=== PATIENT | female | born 1970 | race Caucasian/White ===

== ENCOUNTER 2020-07-28 20:50 | Emergency (ER) | payer MEDICAID, SELFPAY ==
[2020-07-28 21:01] VITALS: BP 100/60; BP 104/61; PULSE 80; PULSE 97; RESP 20; TEMP 37.2; O2SAT 97; O2SAT 98; BMI 23.6
--- NOTE | 2020-07-28 21:01 | ECG_ITS ---
Test Reason : CHEST PAIN Blood Pressure : / mmHG Vent. Rate : 094 BPM Atrial Rate : 094 BPM P-R Int : 150 ms QRS Dur : 072 ms QT Int : 358 ms P-R-T Axes : 070 052 059 degrees QTc Int : 447 ms Normal sinus rhythm Normal ECG When compared with ECG of 12-JUL-2019 13:02, No significant change was found Referred By: Danlio Iyer Electronically Signed By:MILAGROS MEJIAS MD
--- NOTE | 2020-07-28 21:01 | XR_ITS ---
EXAMINATION: XR CHEST CLINICAL INFORMATION: Chest pain. COMPARISON: None TECHNIQUE: Frontal view of the chest was obtained. FINDINGS: The lungs are clear. The cardiomediastinal silhouette is normal in size. There is no pleural effusion or pneumothorax. No acute osseous abnormality. XR/XR chest 1V IMPRESSION: No acute cardiopulmonary findings.
--- NOTE | 2020-07-28 21:06 | ED_ITS ---
HPI - Chest Pain General Chief Complaint: Chest Pain Stated Complaint: chest pain Time Seen by Provider: 07/28/20 21:00 Source: patient and EMS Mode of arrival: EMS Limitations: no limitations History of Present Illness HPI narrative: patient with no known history of coronary artery disease history of mild aortic stenosis with bicuspid aortic valve history of fibromyalgia and gastric reflux was watching TV about 3 hours ago when she noticed sharp midsternal pain which lasted for an hour call the lightning protection installer who asked to [facility]. There was no radiation of pain when EMS came they gave her 2 nitroglycerin sublingual and pain has improved. Patient denies any diaphoresis no nausea no vomiting no abdominal pain patient never had similar pain in the past patient had cardiac stress test few years ago which was negative patient allergic to aspirin. Patient denied any shortness of breath no radiation of pain initial EKG by EMS was normal sinus rhythm without any acute ST T wave changes MD complaint: chest pain Related Data Home Medications Medication Instructions Recorded Confirmed Lactobacillus acidophilus 10,000 mmu cells PO DAILY 07/28/20 07/28/20 [Probiotic] acetaminophen [Tylenol Extra 500 mg PO Q6H PRN 07/28/20 07/28/20 Strength] albuterol sulfate [Proventil HFA] 1 puff INHALATION QID PRN 07/28/20 07/28/20 cholecalciferol (vitamin D3) 50 mcg PO DAILY 07/28/20 07/28/20 [Vitamin D3] famotidine 20 mg PO BEDTIME 07/28/20 07/28/20 lansoprazole 30 mg PO DAILY 07/28/20 07/28/20 lorazepam [Ativan] 0.5 mg PO BID PRN 07/28/20 07/28/20 meclizine 25 mg PO DAILY PRN 07/28/20 07/28/20 nortriptyline 100 mg PO BEDTIME 07/28/20 07/28/20 propranolol 60 mg PO DAILY 07/28/20 07/28/20 Allergies Allergy/AdvReac Type Severity Reaction Status Date / Time amitriptyline [AMITRIPTYLINE] Allergy Unknown ANGER Verified 07/28/20 21:17 aspirin [ASPIRIN] Allergy Unknown HIVES AND Verified 07/28/20 21:17 NAUSEA azithromycin [AZITHROMYCIN] Allergy Unknown HIVES AND Verified 07/28/20 21:17 NAUSEA doxycycline Allergy Unknown Unknown Verified 07/28/20 21:17 erythromycin base Allergy Unknown UNKNOWN Verified 07/28/20 21:17 [ERYTHROMYCIN BASE] fluticasone Allergy Unknown BLISTERS Verified 07/28/20 21:17 [From FLOVENT DISKUS] IN MOUTH ibuprofen [IBUPROFEN] Allergy Unknown HIVES, Verified 07/28/20 21:17 HEADACHE ifosfamide Allergy Unknown Unknown Verified 07/28/20 21:17 loratadine [Claritin] Allergy Unknown Unknown Verified 07/28/20 21:17 pantoprazole [Protonix] Allergy Unknown Unknown Verified 07/28/20 21:17 penicillin G [PENICILLIN G] Allergy Unknown HIVES AND Verified 07/28/20 21:17 NAUSEA penicillin V Allergy Unknown Unknown Verified 07/28/20 21:17 Sulfa (Sulfonamide Allergy Unknown Unknown Verified 07/28/20 21:17 Antibiotics) sulfamethoxazole Allergy Unknown HIVES AND Verified 07/28/20 21:17 [From BACTRIM] NAUSEA trimethoprim [From BACTRIM] Allergy Unknown HIVES AND Verified 07/28/20 21:17 NAUSEA zafirlukast [From ACCOLATE] Allergy Unknown HIVES AND Verified 07/28/20 21:17 NAUSEA cephalexin Allergy Unknown Unknown Uncoded 07/28/20 21:17 doxycycline Allergy Unknown Unknown Uncoded 07/28/20 21:17 Erythromycin Allergy Unknown Unknown Uncoded 07/28/20 21:17 erythromycin Allergy Unknown Unknown Uncoded 07/28/20 21:17 ethylsuccinate Allergy Unknown Unknown Uncoded 07/28/20 21:17 Fluoxetine Allergy Unknown Unknown Uncoded 07/28/20 21:17 fluticasone Allergy Unknown Unknown Uncoded 07/28/20 21:17 Folastin Allergy Unknown Unknown Uncoded 07/28/20 21:17 FOLEX Allergy Unknown HIVES AND Uncoded 07/28/20 21:17 NAUSEA furoate Allergy Unknown Unknown Uncoded 07/28/20 21:17 loratadine Allergy Unknown Unknown Uncoded 07/28/20 21:17 mometasone Allergy Unknown Unknown Uncoded 07/28/20 21:17 monohydrate Allergy Unknown Unknown Uncoded 07/28/20 21:17 Motrin Allergy Unknown Unknown Uncoded 07/28/20 21:17 ofloxacin Allergy Unknown Unknown Uncoded 07/28/20 21:17 omeprazole Allergy Unknown Unknown Uncoded 07/28/20 21:17 pantoprazole Allergy Unknown Unknown Uncoded 07/28/20 21:17 penicillins Allergy Unknown Unknown Uncoded 07/28/20 21:17 propionate Allergy Unknown Unknown Uncoded 07/28/20 21:17 sulfamethoxazole Allergy Unknown Unknown Uncoded 07/28/20 21:17 Symbicort Allergy Unknown Unknown Uncoded 07/28/20 21:17 Trimethoprim Allergy Unknown Unknown Uncoded 07/28/20 21:17 trimethoprim Allergy Unknown Unknown Uncoded 07/28/20 21:17 Zafirlukast Allergy Unknown Unknown Uncoded 07/28/20 21:17 zafirlukast Allergy Unknown Unknown Uncoded 07/28/20 21:17 Review of Systems Review of Systems: REVIEW OF SYSTEMS: Pertinent positives and negatives are stated above in the history. GEN: no fevers, chills, fatigue HEENT: no nasal congestion, sore throat, ear pain NEURO: no headache, dizziness, focal weakness PULM: no cough, shortness of breath CV: no palpitations, LE edema ABD: no abdominal pain, nausea, vomiting, diarrhea : no dysuria, urgency, frequency SKIN: no rash ROS otherwise negative x 10 PMFSH Past Medical History Medical History Anxiety Aortic stenosis Asthma Depression Fibromyalgia GERD (gastroesophageal reflux disease) IBS (irritable bowel syndrome) Migraine Mitral and aortic regurgitation Social History Social History Alcohol intake: never Smoking Status: Never smoker Use of substances other than those prescribed or required for medical reasons: No Advance Directives: No Advance Directives Information Provided: No Physical Exam Vital Signs: Vital Signs: Vital Signs Temp Pulse Resp BP Pulse Ox 07/29/20 00:45 97 17 115/82 95 07/28/20 21:47 98.9 F 92 20 112/73 97 07/28/20 21:01 98.9 F 97 20 104/61 98 Body Mass Index 23.6 VITAL SIGNS: Reviewed. GENERAL: Well developed, well nourished, in no acute distress. HEAD: Normocephalic/atraumatic, EYES: PERRLA No pallor/icterus noted EARS: Ext canals without abnormality NOSE: Nares patent bilateral OROPHARYNX: Oral mucosa moist no oral lesions NECK: Supple, no adenopathy LUNGS: Normal breath sounds. No adventitious sounds or accessory muscle use CARDIOVASCULAR: Regular rate and rhythm without noted murmurs, no JVD or lower extremity edema. ABDOMEN: Soft, non-tender, non-distended with bowel sounds. No rigidity. No guarding. No palpable masses or hernias noted MUSCULOSKELETAL: No tenderness, deformities, EXTREMITIES: No cyanosis or edema. SKIN: no rashes, ulcerations, jaundice, pallor, or petechiae NEUROLOGIC: Alert and oriented x 3. Strength and sensation to light touch were grossly intact Course Course Course Narrative: patient with atypical chest pain initial cardiac enzymes are negative EKG normal with repeat 2nd troponin and follow Reevaluation(s) Reevaluation #1: patient without any chest pain complaining of headache will give her Tylenol. Awaiting her 2nd troponin Time: 01:01 Reevaluation #2: 2nd troponin negative will discharge patient home patient without any chest pain at this time Time: 01:04 MDM - Chest Pain Differential Diagnosis Differential diagnosis: Likely pneumothorax, atypical chest pain, costochondritis and chest pain Lab Data Result diagrams: 07/28/20 21:45 07/28/20 21:45 Labs: Lab Results 07/28/20 07/28/20 07/28/20 Range/Units 21:45 21:45 21:45 WBC 3.6 L (4.8-10.8) X10*3/uL RBC 3.80 L (4.20-5.50) X10*6/uL Hgb 12.4 (12.0-16.0) g/dl Hct 34.8 L (37-47) % MCV 91.6 (80-98) fL MCH 32.6 (27.0-33.0) pg MCHC 35.6 H (31.0-35.0) g/dl RDW 10.8 L (11.0-16.0) % Plt Count 121 L (160-400) X10*3/uL MPV 12.3 (9.4-12.3) fL Immature Gran % (Auto) 0.0 (0.0-0.4) % Neut % (Auto) 61.5 (45-73) % Lymph % (Auto) 12.8 L (20-40) % Giles % (Auto) 25.1 H (2-11) % Eos % (Auto) 0.3 (0-4) % Baso % (Auto) 0.3 (0-2) % Lymph # (Auto) 0.5 L (1.2-4.9) X10*3/uL Giles # (Auto) 0.9 (0.1-1.2) X10*3/uL Eos # (Auto) 0.0 (0.0-0.4) X10*3/uL Baso # (Auto) 0.0 (0.0-0.2) X10*3/uL Abs Immat Gran (auto) 0.00 (0.00-0.03) X10*3/uL Absolute Neuts (auto) 2.2 (2.0-8.3) X10*3/uL Absolute Nucleated RBC 0.000 (0.0-0.012) X10*3/uL Nucleated RBC % (auto) 0.0 (0.0-0.2) /100WBC Smear Tech's Comments VERIFIED PT (10.8-13.0) SEC INR (0.9-1.1) APTT (24.1-38.0) SEC Sodium 135 (135-145) mmol/L Potassium 4.2 (3.3-5.1) mmol/l Chloride 101 (96-108) mmol/L Carbon Dioxide 27 (22-29) mmol/L Anion Gap 11 L (12-20) BUN 12 (9-16) mg/dL Creatinine 0.83 (0.5-1.4) mg/dL Estim Creat Clear Calc 59.8 Estimated GFR > 60 Random Glucose 99 (60-115) mg/dL Calcium 8.4 (8.4-10.2) mg/dL Troponin I High Sens < 3.5 (<3.5-17.0) ng/L 07/28/20 07/29/20 Range/Units 21:45 00:31 WBC (4.8-10.8) X10*3/uL RBC (4.20-5.50) X10*6/uL Hgb (12.0-16.0) g/dl Hct (37-47) % MCV (80-98) fL MCH (27.0-33.0) pg MCHC (31.0-35.0) g/dl RDW (11.0-16.0) % Plt Count (160-400) X10*3/uL MPV (9.4-12.3) fL Immature Gran % (Auto) (0.0-0.4) % Neut % (Auto) (45-73) % Lymph % (Auto) (20-40) % Giles % (Auto) (2-11) % Eos % (Auto) (0-4) % Baso % (Auto) (0-2) % Lymph # (Auto) (1.2-4.9) X10*3/uL Giles # (Auto) (0.1-1.2) X10*3/uL Eos # (Auto) (0.0-0.4) X10*3/uL Baso # (Auto) (0.0-0.2) X10*3/uL Abs Immat Gran (auto) (0.00-0.03) X10*3/uL Absolute Neuts (auto) (2.0-8.3) X10*3/uL Absolute Nucleated RBC (0.0-0.012) X10*3/uL Nucleated RBC % (auto) (0.0-0.2) /100WBC Smear Tech's Comments PT 12.6 (10.8-13.0) SEC INR 1.1 (0.9-1.1) APTT 38.0 (24.1-38.0) SEC Sodium (135-145) mmol/L Potassium (3.3-5.1) mmol/l Chloride (96-108) mmol/L Carbon Dioxide (22-29) mmol/L Anion Gap (12-20) BUN (9-16) mg/dL Creatinine (0.5-1.4) mg/dL Estim Creat Clear Calc Estimated GFR Random Glucose (60-115) mg/dL Calcium (8.4-10.2) mg/dL Troponin I High Sens < 3.5 (<3.5-17.0) ng/L ECG Data ECG #1: Attestation: I personally reviewed and interpreted this ECG as follows: ECG interpretation date: 07/28/20 ECG interpretation time: 20:03 Prior ECG tracings: available for review Interpretation: normal sinus rhythm heart rate 94 normal intervals normal axis no acute ST T wave changes impression normal EKG Discharge Plan Discharge Clinical Impression: Chest pain Qualifiers: Chest pain type: precordial pain Qualified Code(s): R07.2 - Precordial pain Patient Disposition: Home, Self-Care Instructions: Chest Pain (ED) Additional Instructions: continue medications, follow-up with your primary care doctor for further evaluation. Report to the ER if recurrence of chest pain /shortness of breath Prescriptions: No Action propranolol 60 mg Capsule,Extended Release 24 Hr 60 mg PO DAILY RF: 0 famotidine 20 mg Tablet 20 mg PO BEDTIME RF: 0 lorazepam [Ativan] 0.5 mg Tablet 0.5 mg PO BID PRN (Reason: Anxiety) RF: 0 meclizine 25 mg Tablet 25 mg PO DAILY PRN (Reason: Dizziness) RF: 0 lansoprazole 30 mg Capsule,Delayed Release(Dr/Ec) 30 mg PO DAILY RF: 0 albuterol sulfate [Proventil HFA] 90 mcg/actuation Hfa Aerosol Inhaler 1 puff INHALATION QID PRN (Reason: SOB) RF: 0 acetaminophen [Tylenol Extra Strength] 500 mg Capsule 500 mg PO Q6H PRN (Reason: Pain) RF: 0 nortriptyline 50 mg Capsule 100 mg PO BEDTIME RF: 0 cholecalciferol (vitamin D3) [Vitamin D3] 50 mcg (2,000 unit) Tablet 50 mcg PO DAILY RF: 0 Probiotic 10 billion cell Capsule 10,000 mmu cells PO DAILY RF: 0
[2020-07-28] MEDS: Famotidine/PF 20 MG/2 ML VIAL IVPUSH (21:42)
[2020-07-28 21:47] VITALS: BP 112/73; PULSE 92; RESP 20; TEMP 37.2; O2SAT 97
[2020-07-28 22:04] LABS: Basophils Percent Auto 0.3 % (0-2); Eosinophils Percent Auto 0.3 % (0-4); Hematocrit 34.8 % (37-47); Hemoglobin 12.4 g/dl (12.0-16.0); Lymphocytes Absolute Auto 0.5 X10*3/uL (1.2-4.9); Lymphocytes Percent Auto 12.8 % (20-40); MANUAL DIFF FLAG SCAN; Mean Corpuscular HGB Conc 35.6 g/dl (31.0-35.0); Mean Corpuscular Hemoglobin 32.6 pg (27.0-33.0); Mean Corpuscular Volume 91.6 fL (80-98); Mean Platelet Volume 12.3 fL (9.4-12.3); Monocytes Absolute Auto 0.9 X10*3/uL (0.1-1.2); Monocytes Percent Auto 25.1 % (2-11); Neutrophils Absolute Auto 2.2 X10*3/uL (2.0-8.3); Neutrophils Percent Auto 61.5 % (45-73); Platelet Count 121 X10*3/uL (160-400); Red Cell Distribution Width 10.8 % (11.0-16.0); SCAN SMEAR FLAG 1; White Blood Count 3.6 X10*3/uL (4.8-10.8)
[2020-07-28 22:07] LABS: SLIDE REVIEW VERIFIED
[2020-07-28 22:11] LABS: INTERNATIONAL NORM RATIO 1.1 (0.9-1.1); Prothrombin Time 12.6 SEC (10.8-13.0)
[2020-07-28 22:22] VITALS: PULSE 90
[2020-07-28 22:45] LABS: Anion Gap 11 (12-20); Blood Urea Nitrogen 12 mg/dL (9-16); Calcium 8.4 mg/dL (8.4-10.2); Carbon Dioxide 27 mmol/L (22-29); Chloride 101 mmol/L (96-108); Creatinine Clr Calc Pharmacy 59.8; Estimated Glomerular Filt Rate > 60; Glucose Random 99 mg/dL (60-115); Potassium 4.2 mmol/l (3.3-5.1); Sodium 135 mmol/L (135-145)
[2020-07-28 22:49] LABS: Troponin-I High Sensitivity < 3.5 ng/L (<3.5-17.0)
[2020-07-29 00:45] VITALS: BP 115/82; PULSE 97; RESP 17; O2SAT 95
[2020-07-29 01:04] LABS: Troponin-I High Sensitivity < 3.5 ng/L (<3.5-17.0)
== END 2020-07-29 01:26 | disposition home or self-care (01) ==
PROVIDERS: Emergency Provider Internal Medicine; PCP Nurse Practitioner Family
DX: R07.2 Precordial pain (principal); Z79.899 Other long term (current) drug therapy
CPT/HCPCS: 36415; 71045; 80048; 84484; 85025; 85610; 85730; 93005; 96374; 99284

== ENCOUNTER → 2020-10-25 09:06 | Outpatient (BNVA) | payer MEDICAID, SELFPAY | PROVIDERS: PCP Nurse Practitioner Family; Visit Provider Internal Medicine Gastroenterology ==

== ENCOUNTER 2020-11-07 12:58 | Outpatient (REF) | payer MEDICAID, SELFPAY | END 2020-11-07 12:59 | disposition home or self-care (01) | LOC: HO.LAB 12:58 | PROVIDERS: Visit Provider Internal Medicine Gastroenterology | DX: Z13.89 Encounter for screening for other disorder (principal) ==

== ENCOUNTER → 2020-12-06 10:51 | Outpatient (BNVA) | payer MEDICAID, SELFPAY | PROVIDERS: PCP Nurse Practitioner Primary Care; Visit Provider Internal Medicine Gastroenterology ==

== ENCOUNTER 2020-12-24 07:47 | Outpatient (REF) | payer MEDICAID, SELFPAY ==
--- NOTE | ~2020-12-24 | US_ITS ---
EXAMINATION: US ABDOMEN COMPLETE CLINICAL INFORMATION: Gaseous abdominal distention. COMPARISON: CT abdomen and pelvis 03/27/2020. Ultrasound abdomen complete 07/05/2019. Ultrasound kidneys and bladder 08/13/2010. TECHNIQUE: Real-time imaging of the abdominal viscera. FINDINGS: PANCREAS: Normal. ABDOMINAL AORTA: The proximal, mid, and distal segments are normal in caliber. INFERIOR VENA CAVA: Visualized portions are normal. LIVER: The liver is normal in size. The liver contour is normal. There is a slight increased liver echogenicity. No focal hepatic lesion. There is no intrahepatic biliary duct dilatation seen. GALLBLADDER: Normal. The gallbladder is physiologically distended without evidence of stones, sludge, polyps, wall thickening or pericholecystic fluid. COMMON BILE DUCT: Normal in caliber measuring 0.3 cm in diameter. RIGHT KIDNEY: There are 2 anechoic cyst. Upper pole cyst measures 0.3 x 0.1 cm and a lower pole cyst measures 0.2 x 0.1 cm. No hydronephrosis or focal parenchymal lesions. The kidney measures 8.9 cm in maximum dimension. LEFT KIDNEY: Normal. No hydronephrosis. No renal calculi or focal parenchymal lesions. The kidney measures 9.7 cm in maximum dimension. SPLEEN: Normal. The spleen measures 9.6 cm in maximum dimension. FREE FLUID: None. US/US abdomen complete IMPRESSION: Mild hepatic steatosis. No focal lesions seen. Echogenic stones without caliectasis or hydronephrosis right kidney. The rest of the abdominal ultrasound is unremarkable.
[2020-12-24 09:00] LABS: MANUAL DIFF FLAG NO
[2020-12-24 09:03] LABS: Basophils Percent Auto 0.8 % (0-2); Eosinophils Absolute Auto 0.1 X10*3/uL (0.0-0.4); Eosinophils Percent Auto 2.1 % (0-4); Hematocrit 38.3 % (37-47); Hemoglobin 13.2 g/dl (12.0-16.0); Lymphocytes Absolute Auto 1.4 X10*3/uL (1.2-4.9); Lymphocytes Percent Auto 36.1 % (20-40); Mean Corpuscular HGB Conc 34.5 g/dl (31.0-35.0); Mean Corpuscular Hemoglobin 31.7 pg (27.0-33.0); Mean Corpuscular Volume 91.8 fL (80-98); Mean Platelet Volume 11.5 fL (9.4-12.3); Monocytes Absolute Auto 0.4 X10*3/uL (0.1-1.2); Monocytes Percent Auto 11.3 % (2-11); Neutrophils Absolute Auto 1.9 X10*3/uL (2.0-8.3); Neutrophils Percent Auto 49.7 % (45-73); Platelet Count 143 X10*3/uL (160-400); Red Blood Count 4.17 X10*6/uL (4.20-5.50); Red Cell Distribution Width 11.3 % (11.0-16.0); White Blood Count 3.9 X10*3/uL (4.8-10.8)
[2020-12-24 09:12] LABS: Prothrombin Time 11.8 SEC (10.8-13.0)
[2020-12-24 09:34] LABS: Alanine Aminotransferase 19 U/L (0-31); Albumin Level 4.3 g/dL (3.5-5.0); Alkaline Phosphatase 76 U/L (39-117); Anion Gap 12 (12-20); Aspartate Amino Transferase 24 U/L (5-31); Bilirubin Total 0.5 mg/dL (0.0-1.0); Blood Urea Nitrogen 12 mg/dL (9-16); Calcium 9.2 mg/dL (8.4-10.2); Carbon Dioxide 27 mmol/L (22-29); Chloride 105 mmol/L (96-108); Estimated Glomerular Filt Rate > 60; Glucose Random 93 mg/dL (60-115); Sodium 140 mmol/L (135-145); Total Protein 6.9 g/dL (6.5-8.0)
[2020-12-28 12:41] LABS: FIB-ALT 14 U/L (6-29); FIB-Alpha-2-Macroglobulin 200 mg/dL (106-279); FIB-Apolipoprotein A1 167 mg/dL (101-198); FIB-GGT 29 U/L (3-70); FIB-Haptoglobin 134 mg/dL (43-212); FIB-Total Bilirubin 0.4 mg/dL (0.2-1.2); Liver Fibrosis Score 0.13; Liver Fibrosis Stage F0; Nec Inflam Act Grade A0; Nec Inflam Act Score 0.04
== END 2020-12-24 07:48 | disposition home or self-care (01) ==
LOC: HO.US 07:47
PROVIDERS: PCP Nurse Practitioner Primary Care; Visit Provider Internal Medicine Gastroenterology
DX: R14.0 Abdominal distension (gaseous) (principal); R11.0 Nausea; D69.6 Thrombocytopenia, unspecified
CPT/HCPCS: 36415; 76700; 80053; 81596; 85025; 85610

== ENCOUNTER → 2021-01-17 07:58 | Outpatient (BNVA) | payer MEDICAID, SELFPAY | PROVIDERS: PCP Nurse Practitioner Primary Care; Visit Provider Internal Medicine Gastroenterology ==

== ENCOUNTER 2021-02-19 | Outpatient (REF) | payer MEDICAID, SELFPAY ==
[2021-03-01 09:38] LABS: FIT1 NEGATIVE (NEGATIVE)
[2021-03-01 09:39] LABS: FIT Int Ctl YES; FIT2 NEGATIVE (NEGATIVE)
== END 2021-02-19 00:01 ==
LOC: HO.LNP
PROVIDERS: Visit Provider Internal Medicine Gastroenterology
DX: Z12.11 Encounter for screening for malignant neoplasm of colon (principal)
CPT/HCPCS: 82274

== ENCOUNTER → 2021-04-18 10:19 | Outpatient (BNVA) | payer MEDICAID, SELFPAY | PROVIDERS: PCP Nurse Practitioner Primary Care; Referring Provider Nurse Practitioner Primary Care; Visit Provider Internal Medicine Gastroenterology | DX: K58.9 Irritable bowel syndrome, unspecified (principal); K21.9 Gastro-esophageal reflux disease without esophagitis; E73.9 Lactose intolerance, unspecified; R11.0 Nausea; R14.0 Abdominal distension (gaseous); R10.9 Unspecified abdominal pain | CPT/HCPCS: 99212 ==

== ENCOUNTER → 2021-06-20 12:44 | Outpatient (BNVA) | payer MEDICAID, SELFPAY | PROVIDERS: PCP Nurse Practitioner Primary Care; Referring Provider Nurse Practitioner Primary Care; Visit Provider Internal Medicine Gastroenterology | DX: K58.9 Irritable bowel syndrome, unspecified (principal); K21.9 Gastro-esophageal reflux disease without esophagitis; R10.9 Unspecified abdominal pain; R14.0 Abdominal distension (gaseous); R11.0 Nausea; E73.9 Lactose intolerance, unspecified | CPT/HCPCS: 99212 ==

== ENCOUNTER 2021-07-08 14:52 | Outpatient (REF) | payer MEDICAID, SELFPAY ==
--- NOTE | ~2021-07-08 | US_ITS ---
EXAMINATION: US PELVIS CLINICAL INFORMATION: Pain COMPARISON: Previous CT of the abdomen and pelvis February 2020 and pelvic ultrasound most recent June 2018 TECHNIQUE: Ultrasound of the pelvis is performed using both transabdominal and transvaginal transducers along with Doppler. Transvaginal imaging is performed due to inadequate visualization transabdominally. FINDINGS: The uterus is retroverted and measures 6.7 x 3.9 x 4.5 cm in dimension. No focal uterine lesion is seen. Endometrial thickness measures 0.5 cm. There is a small amount of fluid in the endometrial cavity. The cervix is normal appearing. The ovaries are normal. The right ovary measures 2.3 x 1.3 x 2.6 cm. The left ovary measures 1.4 x 0.8 x 1.6 cm. There is no fluid in the pelvis. The pelvic vessels are slightly prominent questionable for pelvic congestion. US/US pelvic and transvaginal IMPRESSION: Question pelvic congestion otherwise unremarkable exam.
== END 2021-07-08 14:53 | disposition home or self-care (01) ==
LOC: HO.HMGCX 14:52
PROVIDERS: PCP Nurse Practitioner Primary Care; Visit Provider Internal Medicine Gastroenterology
DX: R10.2 Pelvic and perineal pain (principal)
CPT/HCPCS: 76830; 76856

== ENCOUNTER 2021-08-07 | Outpatient (REF) | payer MEDICAID, SELFPAY | END 2021-08-07 00:01 | disposition home or self-care (01) | LOC: CF | PROVIDERS: Visit Provider Nurse Practitioner Family | DX: Z01.810 Encounter for preprocedural cardiovascular examination (principal); Q23.1 Congenital insufficiency of aortic valve; R07.9 Chest pain, unspecified; R00.0 Tachycardia, unspecified | CPT/HCPCS: 93005; 99212 ==

== ENCOUNTER → 2021-08-09 09:42 | Outpatient (REF) | payer MEDICAID, SELFPAY ==
--- NOTE | 2021-08-09 09:45 | CA_ITS ---
Acquisition Time: 2021-08-09 09:56:30 Total Exercise Time: 00:05:03 Test Indications: CP Medications: SEE CHART Protocol: SCOTT Max HR: 155 BPM 92% of Pred: 167 BPM Max BP: 120/070 mmHG Max Work Load: 7.0 METS Exercise stress test with exercise 5 min 3 sec of Scott protocol, with moderate shortness of breath, no chest discomfort, without arrythmia, with normotensive response to exercise, without EKG changes meeting criteria for ischemia. She related her shortness of breath to her asthma and used her Albuteral inhaler in recovery with resolution of symptom. Test reviewed with Dr Merritt. Referred By: Temi Charles Overread By: TEMI CHARLES
== END ==
LOC: HO.CARD 09:42
PROVIDERS: PCP Nurse Practitioner Primary Care; Visit Provider Nurse Practitioner Family
DX: R07.9 Chest pain, unspecified (principal)
CPT/HCPCS: 93017

== ENCOUNTER → 2021-09-16 13:11 | Outpatient (REF) | payer MEDICAID, SELFPAY ==
--- NOTE | 2021-09-16 13:22 | CA_ITS ---
Transthoracic Echocardiogram Patient (Last, First, Middle): Jesi Mena, Gender: Female Date of : 1970 Age: 51 Procedure Date: 09/16/2021 Procedure Type: Transthoracic Echocardiogram Location: OP Height: 154.94 cm Weight: 60.78 kg BSA: 1.59 m2 Heart Rate: bpm Charge Attendant: SAMI Referring MD: Temi Charles GALLERY ASSISTANT-Parish Symptoms: Q23.1 - Congenital insufficiency of aortic valve Study Quality: Fair ECG Rhythm: Sinus Conclusions: - The left ventricular systolic function is low normal. The visually estimated ejection fraction is between 50-55%. - There is a bicuspid aortic valve. Suspect fusion of left and right cusps. Most likely no significant aortic stenosis. Findings Left Ventricle Normal left ventricular cavity size. There is normal left ventricular wall thickness. The left ventricular systolic function is low normal. The visually estimated ejection fraction is between 50-55%. There is no evidence of regional wall motion abnormalities. Diastolic function is normal for age. Right Ventricle Normal right ventricular cavity size and systolic function. Atria Both atria are normal in size. Aortic Valve There is a bicuspid aortic valve. The mean gradient is 9 mmHg. There is trace (trivial) aortic valve regurgitation. Suspect fusion of left and right cusps. Visually, the leaflets open well. Measured LVOT VTi is diminished, but this may be technical. This leads to a falsely small calculated ANISA. Most likely no significant aortic stenosis. Mitral Valve The mitral valve appears normal. There is no mitral valve regurgitation. There is no mitral valve stenosis. Pulmonic Valve The pulmonic valve was not well visualized. Tricuspid Valve Normal tricuspid valve structure. There is no tricuspid valve regurgitation. The pulmonary artery systolic pressure is normal. Great Vessels The aortic annulus, sinuses of valsalva, asc aorta, and aortic arch are normal in size. Venous The inferior vena cava was not well visualized. The inferior vena cava is normal in size. Pericardium/Pleural There is no evidence of pericardial effusion. Prior Study Comparison Changes noted compared to prior study dated: 12/13/2019. Slight decrease in LVEF. Measurements 2D Linear Measurements IVSd: 0.79 0.6-0.9/0.6-1.0 cm LVIDd: 3.07 3.9-5.3/4.2-5.9 cm LVIDd Index: 1.93 2.4-3.2/2.2-3.1 cm/m2 LVIDs: 1.89 2.0-3.6 cm LVPWd: 0.79 0.7-1.1 cm Ao Root: 2.50 2.1-3.5 cm LA Diam: 2.40 2.7-3.8/3.0-4.0 cm LAIDs Index: 1.51 1.5-2.3 cm/m2 LV Mass: 74.14 67-162/88-224 g LV Mass Index: 46.63 43-95/49-115 g/m2 LVOT Diam: 2.00 3.0+(-)1.3 cm 2D Systolic Function EF 4C: 66.30 >55% EF 2C: 52.60 >55% EF BiP: 59.50 >55% Mitral Valve MV Pk E: 0.45 MV PK A: 0.58 MV Decel Time: 110.00 E/A: 0.80 E'Lateral: 8.92 E'Medial: 8.38 E/E' Med: 5.40 E/E' Lat: 5.10 PHT: 32.00 MVA PHT: 6.88 Decel [place]: 4.14 Aortic Valve AoV Pk Rene: 1.99 AoV Mn Rene: 1.39 AoV VTI: 0.33 AoV Pk Grad: 16.00 Aov Mn Grad: 9.00 ANISA Cont.VTI: 1.09 LVOT LVOT Pk Rene: 0.70 LVOT Mn Rene: 0.47 LVOT VTI: 0.12 LVOT Pk Grad: 2.00 LVOT Mn Grad: 1.00 LVOT Diam: 2.00 LVOT Area: 3.14 Diastolic Function MV Pk E: 0.45 MV Pk A: 0.58 E/A: 0.80 E'Medial: 8.38 E/E' Med: 5.40 E' Laterial: 8.92 E/E' Lat: 5.10 Right Ventricle TAPSE (mm): 1.83 TVS' Rene: 11.70 Tricuspid Valve TR Pk Rene: 1.94 TR Pk Grad: 15.00 RA Press: 3.00 RVSP: 18.00 Great Vessels Aorta Ao Root-2D: 2.50 2.0-3.7 cm Ao Asc: 2.80 2.1-3.4 cm Updated in Other Vendor System with Status of Final Fran Merritt MD electronically signed on 09/16/2021 5:16:32 PM with status of Final
== END ==
LOC: HO.CARD 13:11
PROVIDERS: PCP Nurse Practitioner Primary Care; Visit Provider Nurse Practitioner Family
DX: Q23.1 Congenital insufficiency of aortic valve (principal)
CPT/HCPCS: 93306

== ENCOUNTER 2021-10-30 14:22 | Outpatient (REF) | payer MEDICAID, SELFPAY ==
[2021-10-31 04:56] LABS: CT PCR NOT DETECTED (Not Detect.); NG PCR NOT DETECTED (Not Detect.)
[2021-10-31 08:48] LABS: BV Int Neg Control Negative (Negative); BV Int Pos Control Positive (Positive)
[2021-11-02 07:42] LABS: HPV mRNA E6/E7 rflx Not Detected (Not Detected)
== END 2021-10-30 14:23 | disposition home or self-care (01) ==
LOC: HO.LAB 14:22
PROVIDERS: PCP Nurse Practitioner Primary Care; Visit Provider Advanced Practice Midwife
DX: Z01.419 Encounter for gynecological examination (general) (routine) without abnormal findings (principal); N93.0 Postcoital and contact bleeding; N88.9 Noninflammatory disorder of cervix uteri, unspecified
CPT/HCPCS: 87480; 87491; 87510; 87591; 87624; 87660; 88142

== ENCOUNTER 2021-11-28 12:29 | Outpatient (REF) | payer MEDICAID, SELFPAY ==
--- NOTE | ~2021-11-28 | MM_ITS ---
EXAMINATION: MM SCREENING DIGITAL BREAST TOMOSYNTHESIS, BILATERAL CLINICAL INFORMATION: Screening. Asymptomatic. The lifetime risk of breast cancer based on the Tyrer-Cuzick Model is 6%. COMPARISON: Mammography: 06/23/2019, 06/14/2018, 04/28/2017 TECHNIQUE: Digital breast tomosynthesis is performed in both the craniocaudal and mediolateral oblique views along with computer-aided detection (CAD). Synthesized 2D images are generated from the tomosynthesis. Additional right CC view is provided. FINDINGS: There are scattered areas of fibroglandular density (ACR BI-RADS breast composition Category b). There are no significant masses, abnormal calcifications, or other abnormalities. Parenchymal pattern is similar to prior studies. There is no developing density or architectural abnormality. The axilla and skin contours are unremarkable. No significant changes. MM/MM tomosynthesis screening BI IMPRESSION: No mammographic evidence of malignancy. ASSESSMENT: BI-RADS 1: Negative RECOMMENDATION: Routine annual mammography screening. This patient's information was entered into a reminder system with a target due date for their next mammogram.
== END 2021-11-28 12:30 | disposition home or self-care (01) ==
LOC: HO.MAMMO 12:29
PROVIDERS: PCP Nurse Practitioner Primary Care; Visit Provider Nurse Practitioner Primary Care
DX: Z12.31 Encounter for screening mammogram for malignant neoplasm of breast (principal)
CPT/HCPCS: 77063; 77067

== ENCOUNTER 2022-01-31 07:39 | Day surgery (SDC) | payer MEDICAID, SELFPAY ==
--- NOTE | 2022-01-30 11:57 | P.CONAN_ITS ---
Documented by User: Radha Cloud NP 01/30/22 12:02 HPI - Anesthesia Eval Consult details Narrative: 51yo F for Colonoscopy Cardiac cleared: Exercise stress test today showed decreased exercise capacity, No Chest discomfort. Moderate shortness of breath with exertion which she stated was from her asthma. SOB resolved after use of albuteral inhaler and rest. No arrythmia or ischemia noted on EKG tracings. Reviewed results with her. Can proceed with colonoscopy. ? *Multiple Med Allergies* PMFSH Active Problems Active Problems: All Active Problems (Updated 01/29/22 @ 13:20 by Polly Wolf MD) Preop cardiovascular exam (Acute) Chest pain (Acute) Cough (Acute) Abdominal bloating (Acute) Nausea (Acute) Lactose intolerance (Acute) Bicytopenia (Chronic) Abdominal pain (Acute) IBS (irritable bowel syndrome) (Acute) GERD (gastroesophageal reflux disease) (Acute) Inappropriate sinus node tachycardia (Acute) Bicuspid aortic valve (Acute) Aortic stenosis (Acute) Past Medical History Medical History Allergic rhinitis Anxiety Aortic stenosis Asthma Bicuspid aortic valve Depression Fibromyalgia GERD (gastroesophageal reflux disease) History of tachycardia Hypoglycemia IBS (irritable bowel syndrome) Inappropriate sinus node tachycardia Kidney stones Migraine Mitral and aortic regurgitation Pancytopenia Vertigo Family History Family History Father Cancer Mother CVD (cardiovascular disease) Stroke Maternal Grandmother Ovarian cancer Colon cancer Family/Other History of breast cancer Surgical History Surgical History History of appendectomy History of esophagogastroduodenoscopy (EGD) History of eye surgery History of left knee surgery History of loop electrical excision procedure (LEEP) Hx of dilation and curettage Hx of ovarian cystectomy Hx of tubal ligation Social History Social History (Updated 01/29/22 @ 13:08 by Meaghan Arora CMA) Household Members: Spouse Housing: House Are you a primary career development manager to a significant other at home: No Do you presently have visiting nurse or other home services: No Alcohol intake: never Patient Tobacco Use Status: Never used Tobacco Use of substances other than those prescribed or required for medical reasons: No Are you DNR?: No Advance Directives: No Advance Directives Information Provided: Yes Recently lost weight without trying: No service: No Current occupational status: disabled Sexual orientation: Straight/Heterosexual Gender identity: Female Meds Allergies Allergy/AdvReac Type Severity Reaction Status Date / Time amitriptyline [AMITRIPTYLINE] Allergy Unknown ANGER Verified 01/29/22 13:08 aspirin [ASPIRIN] Allergy Unknown HIVES AND Verified 01/29/22 13:08 NAUSEA azithromycin [AZITHROMYCIN] Allergy Unknown HIVES AND Verified 01/29/22 13:08 NAUSEA doxycycline Allergy Unknown Hives, Verified 01/29/22 13:08 nausea erythromycin base Allergy Unknown Nausea and Verified 01/29/22 13:08 [ERYTHROMYCIN BASE] Vomiting fluticasone Allergy Unknown BLISTERS Verified 01/29/22 13:08 [From FLOVENT DISKUS] IN MOUTH ibuprofen [IBUPROFEN] Allergy Unknown HIVES, Verified 01/29/22 13:08 HEADACHE ifosfamide Allergy Unknown Unknown Verified 01/29/22 13:08 loratadine [Claritin] Allergy Unknown Headache Verified 01/29/22 13:08 pantoprazole [Protonix] Allergy Unknown Nausea and Verified 01/29/22 13:08 Vomiting Sulfa (Sulfonamide Allergy Unknown Hives and Verified 01/29/22 13:08 Antibiotics) Nausea sulfamethoxazole Allergy Unknown HIVES AND Verified 01/29/22 13:08 [From BACTRIM] NAUSEA trimethoprim [From BACTRIM] Allergy Unknown HIVES AND Verified 01/29/22 13:08 NAUSEA zafirlukast [From ACCOLATE] Allergy Unknown HIVES AND Verified 01/29/22 13:08 NAUSEA cephalexin Allergy Unknown Unknown Uncoded 01/29/22 13:08 ethylsuccinate Allergy Unknown Unknown Uncoded 01/29/22 13:08 Fluoxetine Allergy Unknown Unknown Uncoded 01/29/22 13:08 fluticasone Allergy Unknown Unknown Uncoded 01/29/22 13:08 Folastin Allergy Unknown Unknown Uncoded 01/29/22 13:08 FOLEX Allergy Unknown HIVES AND Uncoded 01/29/22 13:08 NAUSEA furoate Allergy Unknown Unknown Uncoded 01/29/22 13:08 mometasone Allergy Unknown Unknown Uncoded 01/29/22 13:08 ofloxacin Allergy Unknown Unknown Uncoded 01/29/22 13:08 omeprazole Allergy Unknown Unknown Uncoded 01/29/22 13:08 penicillins Allergy Unknown Hives Uncoded 01/29/22 13:08 propionate Allergy Unknown Unknown Uncoded 01/29/22 13:08 Symbicort Allergy Unknown Unknown Uncoded 01/29/22 13:08 Home Medications Medication Instructions Recorded Confirmed Last Taken Type Lactobacillus acidophilus 10 10,000 mmu cells PO DAILY 07/28/20 01/29/22 Unknown History billion cell capsule (Probiotic) acetaminophen 500 mg capsule 500 mg PO Q6H PRN 07/28/20 01/29/22 Unknown History albuterol sulfate 90 mcg/actuation 1 puff INHALATION QID PRN 07/28/20 01/29/22 Unknown History aerosol inhaler (Proventil HFA) cholecalciferol (vitamin D3) 50 50 mcg PO DAILY 07/28/20 01/29/22 Unknown History mcg (2,000 unit) tablet (Vitamin D3) lorazepam 0.5 mg tablet (Ativan) 0.5 mg PO BID PRN 07/28/20 01/29/22 Unknown History meclizine 25 mg tablet 25 mg PO DAILY PRN 07/28/20 01/29/22 Unknown History nortriptyline 50 mg capsule 100 mg PO BEDTIME 07/28/20 01/29/22 Unknown History Exam Exam Date and Time: January 30, 2022 1157 Pertinent Lab Results Pertinent Lab Results: Laboratory Tests ? 12/24/20 12/24/20 ? 08:50 08:50 WBC ?3.9 L ? Hgb ?13.2 ? Hct ?38.3 ? Plt Count ?143 L ? Sodium ? ?140 Potassium ? ?4.0 Chloride ? ?105 Carbon Dioxide ? ?27 BUN ? ?12 Creatinine ? ?0.79 Narrative Narrative: EKG 07/2021 normal sinus rhythm, no acute ST or T-wave abnormalities, rate 95, QTC 434 millisecond ECHO 08/2021 Conclusions: - The left ventricular systolic function is low normal.? The ? ? visually estimated ejection fraction is between 50-55%.? - There is a bicuspid aortic valve.? Suspect fusion of left and? right cusps. Most likely no significant aortic stenosis. ? ? EKG 07/2021 Protocol: GIRISH ? Max HR: 155 BPM? 92% of? Pred: 167 BPM Max BP: 120/070 mmHG Max Work Load: 7.0 METS ? Exercise stress test with exercise 5 min 3 sec of Girish protocol, with moderate ?shortness of breath, no chest discomfort, without arrythmia, with normotensive ?response to exercise, without EKG changes meeting criteria for ischemia. She ?related her shortness of breath to her asthma and used her Albuteral inhaler ?in recovery with resolution of symptom. Test reviewed with Dr Merritt Assessment and Plan Assessment Anesthesia Assessment: Chart Reviewed Documented by User: Rachell Carmen MD 01/31/22 09:16 [facility] Past Medical History Medical History Allergic rhinitis Anxiety Aortic stenosis Asthma Bicuspid aortic valve Depression Fibromyalgia GERD (gastroesophageal reflux disease) History of tachycardia Hypoglycemia IBS (irritable bowel syndrome) Inappropriate sinus node tachycardia Kidney stones Migraine Mitral and aortic regurgitation Pancytopenia Vertigo Family History Family History Father Cancer Mother CVD (cardiovascular disease) Stroke Maternal Grandmother Ovarian cancer Colon cancer Family/Other History of breast cancer Family history of problems with anesthesia: No Surgical History Surgical History History of appendectomy History of esophagogastroduodenoscopy (EGD) History of eye surgery History of left knee surgery History of loop electrical excision procedure (LEEP) Hx of dilation and curettage Hx of ovarian cystectomy Hx of tubal ligation History of Problems with Anesthesia: No Social History Social History (Updated 01/29/22 @ 13:08 by Meaghan Arora CMA) Household Members: Spouse Housing: House Are you a primary career development manager to a significant other at home: No Do you presently have visiting nurse or other home services: No Alcohol intake: never Patient Tobacco Use Status: Never used Tobacco Use of substances other than those prescribed or required for medical reasons: No Are you DNR?: No Advance Directives: No Advance Directives Information Provided: Yes Recently lost weight without trying: No service: No Current occupational status: disabled Sexual orientation: Straight/Heterosexual Gender identity: Female Meds Allergies Allergy/AdvReac Type Severity Reaction Status Date / Time amitriptyline [AMITRIPTYLINE] Allergy Unknown ANGER Verified 01/29/22 13:08 aspirin [ASPIRIN] Allergy Unknown HIVES AND Verified 01/29/22 13:08 NAUSEA azithromycin [AZITHROMYCIN] Allergy Unknown HIVES AND Verified 01/29/22 13:08 NAUSEA doxycycline Allergy Unknown Hives, Verified 01/29/22 13:08 nausea erythromycin base Allergy Unknown Nausea and Verified 01/29/22 13:08 [ERYTHROMYCIN BASE] Vomiting fluticasone Allergy Unknown BLISTERS Verified 01/29/22 13:08 [From FLOVENT DISKUS] IN MOUTH ibuprofen [IBUPROFEN] Allergy Unknown HIVES, Verified 01/29/22 13:08 HEADACHE ifosfamide Allergy Unknown Unknown Verified 01/29/22 13:08 loratadine [Claritin] Allergy Unknown Headache Verified 01/29/22 13:08 pantoprazole [Protonix] Allergy Unknown Nausea and Verified 01/29/22 13:08 Vomiting Sulfa (Sulfonamide Allergy Unknown Hives and Verified 01/29/22 13:08 Antibiotics) Nausea sulfamethoxazole Allergy Unknown HIVES AND Verified 01/29/22 13:08 [From BACTRIM] NAUSEA trimethoprim [From BACTRIM] Allergy Unknown HIVES AND Verified 01/29/22 13:08 NAUSEA zafirlukast [From ACCOLATE] Allergy Unknown HIVES AND Verified 01/29/22 13:08 NAUSEA cephalexin Allergy Unknown Unknown Uncoded 01/29/22 13:08 ethylsuccinate Allergy Unknown Unknown Uncoded 01/29/22 13:08 Fluoxetine Allergy Unknown Unknown Uncoded 01/29/22 13:08 fluticasone Allergy Unknown Unknown Uncoded 01/29/22 13:08 Folastin Allergy Unknown Unknown Uncoded 01/29/22 13:08 FOLEX Allergy Unknown HIVES AND Uncoded 01/29/22 13:08 NAUSEA furoate Allergy Unknown Unknown Uncoded 01/29/22 13:08 mometasone Allergy Unknown Unknown Uncoded 01/29/22 13:08 ofloxacin Allergy Unknown Unknown Uncoded 01/29/22 13:08 omeprazole Allergy Unknown Unknown Uncoded 01/29/22 13:08 penicillins Allergy Unknown Hives Uncoded 01/29/22 13:08 propionate Allergy Unknown Unknown Uncoded 01/29/22 13:08 Symbicort Allergy Unknown Unknown Uncoded 01/29/22 13:08 Home Medications Medication Instructions Recorded Confirmed Last Taken Type Lactobacillus acidophilus 10 10,000 mmu cells PO DAILY 07/28/20 01/29/22 Unknown History billion cell capsule (Probiotic) acetaminophen 500 mg capsule 500 mg PO Q6H PRN 07/28/20 01/29/22 Unknown History albuterol sulfate 90 mcg/actuation 1 puff INHALATION QID PRN 07/28/20 01/29/22 Unknown History aerosol inhaler (Proventil HFA) cholecalciferol (vitamin D3) 50 50 mcg PO DAILY 07/28/20 01/29/22 Unknown History mcg (2,000 unit) tablet (Vitamin D3) lorazepam 0.5 mg tablet (Ativan) 0.5 mg PO BID PRN 07/28/20 01/29/22 Unknown History meclizine 25 mg tablet 25 mg PO DAILY PRN 07/28/20 01/29/22 Unknown History nortriptyline 50 mg capsule 100 mg PO BEDTIME 07/28/20 01/29/22 Unknown History Exam Airway Mallampati Class: II TM Dist: >3cm Neck ROM: Full Heart: rrr Lungs: cta Assessment and Plan Final Anesthetic Review Family History of Problems with Anesthesia: No History of Problems with Anesthesia: No NPO: Yes ASA Class: III Final Preanesthetic Review: No Changes in Pt Med Stat, Meds/Allgs Chart Reviewed and Consent Obtained/Reviewed Patient Risk: Intermediate Procedure Risk: Intermediate Anesthetic Plan Anesthetic Plan: MAC: Disposition: Standard PACU
[2022-01-31 08:18] VITALS: BMI 52.0
[2022-01-31 08:29] VITALS: BP 113/77; PULSE 81; RESP 18; TEMP 36.6; O2SAT 98
--- NOTE | 2022-01-31 08:37 | MHC.SHP ---
Pre-Procedural Eval Section A Date of Service: 01/31/22 Section B Chief Complaint: Abdominal distension (gaseous) Details of Present Illness: screening, abdominal pain, nausea Present Medications: see Short Stay Collaborative assessment Medical History: Significant History (Anxiety Aortic stenosis Asthma Bicuspid aortic valve Depression Fibromyalgia GERD (gastroesophageal reflux disease) IBS (irritable bowel syndrome) Inappropriate sinus node tachycardia Kidney stones Migraine Mitral and aortic regurgitation) History of Previous Operations: Relevant previous surgery/procedure and date(s) (History of appendectomy History of esophagogastroduodenoscopy (EGD)) Allergies: Allergies Allergy/AdvReac Type Severity Reaction Status Date / Time amitriptyline [AMITRIPTYLINE] Allergy Unknown ANGER Verified 01/29/22 13:08 aspirin [ASPIRIN] Allergy Unknown HIVES AND Verified 01/29/22 13:08 NAUSEA azithromycin [AZITHROMYCIN] Allergy Unknown HIVES AND Verified 01/29/22 13:08 NAUSEA doxycycline Allergy Unknown Hives, Verified 01/29/22 13:08 nausea erythromycin base Allergy Unknown Nausea and Verified 01/29/22 13:08 [ERYTHROMYCIN BASE] Vomiting fluticasone Allergy Unknown BLISTERS Verified 01/29/22 13:08 [From FLOVENT DISKUS] IN MOUTH ibuprofen [IBUPROFEN] Allergy Unknown HIVES, Verified 01/29/22 13:08 HEADACHE ifosfamide Allergy Unknown Unknown Verified 01/29/22 13:08 loratadine [Claritin] Allergy Unknown Headache Verified 01/29/22 13:08 pantoprazole [Protonix] Allergy Unknown Nausea and Verified 01/29/22 13:08 Vomiting Sulfa (Sulfonamide Allergy Unknown Hives and Verified 01/29/22 13:08 Antibiotics) Nausea sulfamethoxazole Allergy Unknown HIVES AND Verified 01/29/22 13:08 [From BACTRIM] NAUSEA trimethoprim [From BACTRIM] Allergy Unknown HIVES AND Verified 01/29/22 13:08 NAUSEA zafirlukast [From ACCOLATE] Allergy Unknown HIVES AND Verified 01/29/22 13:08 NAUSEA cephalexin Allergy Unknown Unknown Uncoded 01/29/22 13:08 ethylsuccinate Allergy Unknown Unknown Uncoded 01/29/22 13:08 Fluoxetine Allergy Unknown Unknown Uncoded 01/29/22 13:08 fluticasone Allergy Unknown Unknown Uncoded 01/29/22 13:08 Folastin Allergy Unknown Unknown Uncoded 01/29/22 13:08 FOLEX Allergy Unknown HIVES AND Uncoded 01/29/22 13:08 NAUSEA furoate Allergy Unknown Unknown Uncoded 01/29/22 13:08 mometasone Allergy Unknown Unknown Uncoded 01/29/22 13:08 ofloxacin Allergy Unknown Unknown Uncoded 01/29/22 13:08 omeprazole Allergy Unknown Unknown Uncoded 01/29/22 13:08 penicillins Allergy Unknown Hives Uncoded 01/29/22 13:08 propionate Allergy Unknown Unknown Uncoded 01/29/22 13:08 Symbicort Allergy Unknown Unknown Uncoded 01/29/22 13:08 Review of Systems Sugical H&P ROS: Negative: Constitution, Cardiovascular and Respiratory and Yes, Specify: Gastrointestinal (abdominal pain and distension) Exam Surgical H&P Exam: Normal: Heart, Normal: Lungs, Normal: Extremities and Normal: Abdomen Plan Diagnosis/Plan: Unchanged I have reviewed the history and physical and performed a pertinent physical examination on my patient. No changes have occurred unless specified.
[2022-01-31 08:49] VITALS: BMI 23.6
[2022-01-31] MEDS: Lactated Ringers 1,000 ML 100 ML IVCONT (09:03)
--- NOTE | 2022-01-31 09:10 | P.OP_ITS ---
Operative Note Operative Note Date of Service: 01/31/22 Narrative: Pre-op diagnosis: abdominal pain, nausea, bloating Post-op diagnosis:?other (Colon polyps, diverticulosis) Procedure: COLONOSCOPY TILL CECUM WITH BIOPSIES AND SNARE POLYPECTOMY Consent: Indications for the procedure and potential complications of bleeding, perforation, reaction to medications and missed diagnosis were discussed with the patient and informed consent was obtained. Instrument: Olympus PCF H 190 L variable stiffness pediatric colonoscope Monitoring: Vital signs and clinical assessment, intermittent blood pressure monitoring, continuous EKG monitoring, Pulse oximetry and Carbon Dioxide monitoring were done throughout the procedure. Colon withdrawl time was 25 minutes. Procedure: The patient was placed in the left lateral decubitis position and pre-procedure medications were administered. After a digital rectal examination of the ano-rectum, the video colonoscope was inserted into the rectum and advanced through the colon to the cecum. The colonoscope was slowly withdrawn in a retrograde panoramic fashion and the colon mucosa was carefully examined including a retroflexed view of the rectum. Findings and interventions are described below. Procedure Difficulty:? Colon was long and tortuous and there was spasm and some loop formation Findings: Terminal Ileum: Multiple attempts to intubate the TI were unsuccessful Cecum:? An 18 to 20 mm sessile polyp opposite the ileocecal valve removed with a hot snare. Ascending Colon:? Normal Transverse Colon:? Normal Descending Colon:? Normal Sigmoid Colon:? Moderate diverticulosis Rectum:? Patchy erythema in the rectum from 0 to 8 cms - biopsies were obtained obtained to check for proctitis Ano-rectum: Normal Colon preparation:? Good after copious irrigation Impression and Post Procedure Diagnosis: Colonoscopy Findings: One medium sized polyp removed. Random biopsies were obtained from the right and left colon and rectum Moderate diverticulosis seen in the sigmoid colon Plan: Await pathology results Patient has an appointment on 03/06/22 in the [facility] with Henrietta Wilkinson M.D. Repeat Colonoscopy interval based on path results - in 3 years if polyps are adenomatous and 10 years if polyps are hyperplastic. (Adult colonoscope for future colonoscopies) Above findings were reviewed with the patient and colon polyps and diverticulosis handouts were given in the discharge area Surgeon: Henrietta Wilkinson MD Anesthesia:?MAC (Dr Cai) Was an Management Development Specialist used for this Procedure?:?Yes Management Development Specialist:?Helga Conn Estimated blood loss (mL):?0 Pathology:?other (A. CECAL POLYP? B. RANDOM RIGHT COLON? C. RANDOM LEFT COLON? D. RECTAL BIOPSIES) Condition:?stable Disposition:?PACU
[2022-01-31 10:03] VITALS: BP 108/69; PULSE 81; RESP 16; TEMP 36.1; O2SAT 97
[2022-01-31 10:18] VITALS: BP 113/79; PULSE 71; RESP 18; O2SAT 100
[2022-01-31 10:32] VITALS: BP 113/75; PULSE 70; RESP 18; TEMP 36.4; O2SAT 99
== END 2022-01-31 10:52 | disposition home or self-care (01) ==
PROVIDERS: PCP Nurse Practitioner Primary Care; Visit Provider Internal Medicine Gastroenterology
PROC: 0DJD8ZZ Inspection of Lower Intestinal Tract, Via Natural or Artificial Opening Endoscopic (ICD-10-PCS; CPT 45378; principal; 2022-01-31 09:20)
DX: R14.0 Abdominal distension (gaseous) (principal); R10.9 Unspecified abdominal pain; R11.0 Nausea; D12.0 Benign neoplasm of cecum; K57.30 Diverticulosis of large intestine without perforation or abscess without bleeding; K58.9 Irritable bowel syndrome, unspecified; K21.9 Gastro-esophageal reflux disease without esophagitis; I35.0 Nonrheumatic aortic (valve) stenosis; J45.909 Unspecified asthma, uncomplicated; M79.7 Fibromyalgia; E73.9 Lactose intolerance, unspecified; F32.9 Major depressive disorder, single episode, unspecified; F41.1 Generalized anxiety disorder; Z79.899 Other long term (current) drug therapy; Z88.0 Allergy status to penicillin; Z88.1 Allergy status to other antibiotic agents; Z88.2 Allergy status to sulfonamides; Z88.8 Allergy status to other drugs, medicaments and biological substances; Z98.890 Other specified postprocedural states
CPT/HCPCS: 45385; 45380; 88305

== ENCOUNTER 2022-04-15 12:46 | Outpatient (REF) | payer MEDICAID, SELFPAY ==
[2022-04-15 13:07] LABS: MANUAL DIFF FLAG NO
[2022-04-15 13:16] LABS: Basophils Percent Auto 0.9 % (0-2); Eosinophils Absolute Auto 0.1 X10*3/uL (0.0-0.4); Eosinophils Percent Auto 1.5 % (0-4); Hematocrit 38.1 % (37.0-47.0); Hemoglobin 13.3 g/dl (12.0-16.0); Imm Gran Abs Auto 0.01 X10*3/uL (0.00-0.03); Imm Gran Pct Auto 0.2 % (0.0-0.4); Lymphocytes Absolute Auto 1.3 X10*3/uL (1.2-4.9); Lymphocytes Percent Auto 27.4 % (20-40); Mean Corpuscular HGB Conc 34.9 g/dl (31.0-35.0); Mean Corpuscular Hemoglobin 31.5 pg (27.0-33.0); Mean Corpuscular Volume 90.3 fL (80.0-98.0); Monocytes Absolute Auto 0.5 X10*3/uL (0.1-1.2); Monocytes Percent Auto 10.6 % (2-11); Neutrophils Absolute Auto 2.8 x10*3/uL (2.0-8.3); Neutrophils Percent Auto 59.4 % (45-73); Platelet Count 143 X10*3/uL (160-400); Red Blood Count 4.22 X10*6/uL (4.20-5.50); Red Cell Distribution Width 11.4 % (11.0-16.0); White Blood Count 4.6 X10*3/uL (4.8-10.8)
[2022-04-15 13:46] LABS: Anion Gap 11 (12-20); Blood Urea Nitrogen 10 mg/dL (9-16); Calcium 9.3 mg/dL (8.4-10.2); Carbon Dioxide 26 mmol/L (22-29); Chloride 106 mmol/L (96-108); Cholesterol 191 mg/dL; Estimated Glomerular Filt Rate > 60; Glucose Random 93 mg/dL (60-115); HDL Cholesterol 48 mg/dL; LDL Cholesterol Calculated 103 mg/dl; Potassium 3.8 mmol/L (3.3-5.1); Sodium 139 mmol/L (135-145); Triglycerides 201 mg/dL
== END 2022-04-15 12:47 | disposition home or self-care (01) ==
LOC: HO.LAB 12:46
PROVIDERS: PCP Nurse Practitioner Primary Care; Visit Provider Nurse Practitioner Primary Care
DX: Z00.00 Encounter for general adult medical examination without abnormal findings (principal); R73.03 Prediabetes
CPT/HCPCS: 36415; 80048; 80061; 85025

== ENCOUNTER 2022-07-22 12:21 | Outpatient (REF) | payer MEDICAID, SELFPAY ==
--- NOTE | ~2022-07-22 | US_ITS ---
EXAMINATION: US RETROPERITONEAL LIMITED (RENAL ONLY) CLINICAL INFORMATION: Unspecified abdominal pain. COMPARISON: Ultrasound abdomen complete 12/24/2020 and 07/05/2019. CT abdomen and pelvis without contrast 03/27/2020. TECHNIQUE: Real-time imaging of the kidneys. FINDINGS: RIGHT KIDNEY: 9.4 x 4.4 x 5.2 cm (SAG x AP x TRV). The kidney is normal in size, contour, and echogenicity. Renal cortical thickness is normal. No focal parenchymal lesions or hydronephrosis. Nonobstructing stones measuring up to 4 mm. LEFT KIDNEY: 9.0 x 4.8 x 4.8 cm (SAG x AP x TRV). The kidney is normal in size, contour, and echogenicity. Renal cortical thickness is normal. No calculi or focal parenchymal lesions. No hydronephrosis. US/US renal BI IMPRESSION: Nonobstructing right renal nephrolithiasis. No hydronephrosis.
== END 2022-07-22 12:22 | disposition home or self-care (01) ==
LOC: HO.US 12:21
PROVIDERS: Visit Provider Nurse Practitioner Primary Care
DX: R10.9 Unspecified abdominal pain (principal)
CPT/HCPCS: 76775

== ENCOUNTER → 2022-08-12 12:23 | Outpatient (BNVA) | payer MEDICAID, SELFPAY | PROVIDERS: PCP Nurse Practitioner Primary Care; Referring Provider Nurse Practitioner Primary Care; Visit Provider Internal Medicine Cardiovascular Disease | DX: Q23.1 Congenital insufficiency of aortic valve (principal); R07.9 Chest pain, unspecified; R00.0 Tachycardia, unspecified | CPT/HCPCS: 93005; 99212 ==

== ENCOUNTER → 2022-09-04 12:25 | Outpatient (BNVA) | payer MEDICAID, SELFPAY | PROVIDERS: PCP Nurse Practitioner Primary Care; Visit Provider Internal Medicine Gastroenterology | DX: K21.9 Gastro-esophageal reflux disease without esophagitis (principal); R14.0 Abdominal distension (gaseous); K58.9 Irritable bowel syndrome, unspecified; D12.6 Benign neoplasm of colon, unspecified; R10.9 Unspecified abdominal pain; R11.0 Nausea; E73.9 Lactose intolerance, unspecified | CPT/HCPCS: 99212 ==

== ENCOUNTER 2022-12-01 12:19 | Outpatient (REF) | payer MEDICAID, SELFPAY ==
--- NOTE | ~2022-12-01 | MM_ITS ---
EXAMINATION: MM SCREENING DIGITAL BREAST TOMOSYNTHESIS, BILATERAL CLINICAL INFORMATION: Screening. Asymptomatic. The lifetime risk of breast cancer based on the Tyrer-Cuzick Model is 6%. COMPARISON: Mammography: 11/28/2021, 06/23/2019, 06/14/2018 TECHNIQUE: Digital breast tomosynthesis is performed in both the craniocaudal and mediolateral oblique views along with computer-aided detection (CAD). Synthesized 2D images are generated from the tomosynthesis. FINDINGS: There are scattered areas of fibroglandular density (ACR BI-RADS breast composition Category b). There are no significant masses, abnormal calcifications, or other abnormalities. No architectural abnormality or developing density or significant change from prior studies. The axilla are unremarkable. MM/MM tomosynthesis screening BI IMPRESSION: No mammographic evidence of malignancy. ASSESSMENT: BI-RADS 1: Negative RECOMMENDATION: Routine annual mammography screening. This patient's information was entered into a reminder system with a target due date for their next mammogram.
== END 2022-12-01 12:20 | disposition home or self-care (01) ==
LOC: HO.MAMMO 12:19
PROVIDERS: PCP Nurse Practitioner Primary Care; Visit Provider Nurse Practitioner Primary Care
DX: Z12.31 Encounter for screening mammogram for malignant neoplasm of breast (principal)
CPT/HCPCS: 77063; 77067

== ENCOUNTER 2022-12-11 09:18 | Outpatient (REF) | payer MEDICAID, SELFPAY | END 2022-12-11 09:19 | disposition home or self-care (01) | LOC: HO.XRAY 09:18 | PROVIDERS: Visit Provider Internal Medicine Gastroenterology | DX: Z13.89 Encounter for screening for other disorder (principal) ==

== ENCOUNTER → 2022-12-18 10:21 | Outpatient (REF) | payer MEDICAID, SELFPAY ==
--- NOTE | 2022-12-18 10:30 | CA_ITS ---
Acquisition Time: 2022-12-18 10:49:40 Total Exercise Time: 00:02:20 Test Indications: CHEST PAIN Medications: SEE H Protocol: SCOTT Max HR: 134 BPM 80% of Pred: 166 BPM Max BP: 104/070 mmHG Max Work Load: 3.7 METS Patient had mild vasovagal response following IV insertion during test preparation with symptoms of nausea, pallor, and mild diaphorisis, pulse rate dropped from 102 down to 70s, blood pressure remained stable with systolic in 90s which was her baseline. She was treated with supine position, 400cc of IV NS then orange juice and crackers with improvement in condition back to her baseline normal. Patient monitored for 25 min and stated she felt well enough to proceed with test. Exercise stress test with exercise 1 min 40 sec of Scott protocol with report of lightheadedness and SOB, with need to stop assisted to laying down position. Echo images obtained at rest and immediately post exercise. Definty contrast used. Once in recovery patient reported a mild pressure in her left lower sternal area which then resolved with ongoing rest. No arrythima, bradycardia, or hypotension noted during her actual test. Patient was recovered 14 min 30 sec and conditioned remained stable. She was able to leave cardiology dept without concering symptoms and ambulating steady. present and will be driving patient home. test reviewed with Dr. Blanton. Referred By: Timoteo Blanton Overread By: LATRELL TREJO
== END ==
LOC: HO.CARD 10:21
PROVIDERS: PCP Nurse Practitioner Primary Care; Visit Provider Internal Medicine Cardiovascular Disease
DX: R07.9 Chest pain, unspecified (principal)
CPT/HCPCS: 93350; Q9957

== ENCOUNTER → 2023-01-08 10:19 | Outpatient (REF) | payer MEDICAID, SELFPAY ==
--- NOTE | 2023-01-08 10:23 | CA_ITS ---
Acquisition Time: 2023-01-08 10:43:20 Total Exercise Time: 00:15:39 Test Indications: Chest Pain Medications: Protocol: DOBUTAMINE Max HR: 151 BPM 90% of Pred: 166 BPM Max BP: 136/048 mmHG Max Work Load: 1.0 METS Pharmacological stress test with Dobutamine infusion to max of 30 mcg/kg/min without anginal symtpoms, without arrythmia, with normotensive reponse to infusion, without EKG changes. Echo images obtained by [employer]otec AMD at rest, mid dose, and at peak. Definty contrast used. Test reviewed with Dr. Blanton. Referred By: Temi Charles Overread By: TEMI CHARLES
== END ==
LOC: HO.CARD 10:19
PROVIDERS: PCP Nurse Practitioner Primary Care; Visit Provider Nurse Practitioner Family
DX: R07.9 Chest pain, unspecified (principal); R94.39 Abnormal result of other cardiovascular function study
CPT/HCPCS: 93351; J1250; Q9957

== ENCOUNTER 2023-03-19 10:24 | Outpatient (AMB) | payer MEDICAID, SELFPAY ==
--- NOTE | 2023-03-19 10:28 | MHC.OFFVIS ---
Intake Vital Signs 03/19/23 10:32 Height 5 ft 1 in Weight 131 lb BMI 24.7 BP 93/63 Blood Pressure Location Lt brachial Position Sitting Pulse 87 Intake Visit Reasons: 3 month fu Intake Note: Patient 3 month follow up for abdominal bloating and lab results Patient cc: Nauseas, abdominal pain/bloating, acid reflex on and off. 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 Accompanied by: Self / Same As Patient Allergies amitriptyline [AMITRIPTYLINE] Allergy (Unknown, Verified 12/10/23 10:) ANGER aspirin [ASPIRIN] Allergy (Unknown, Verified 12/10/23 10:) HIVES AND NAUSEA azithromycin [AZITHROMYCIN] Allergy (Unknown, Verified 12/10/23 10:) HIVES AND NAUSEA doxycycline Allergy (Unknown, Verified 12/10/23 10:) Hives, nausea erythromycin base [ERYTHROMYCIN BASE] Allergy (Unknown, Verified 12/10/23 10:) Nausea and Vomiting fluticasone [From FLOVENT DISKUS] Allergy (Unknown, Verified 12/10/23 10:) BLISTERS IN MOUTH ibuprofen [IBUPROFEN] Allergy (Unknown, Verified 12/10/23 10:) HIVES, HEADACHE ifosfamide Allergy (Unknown, Verified 12/10/23 10:28) Unknown loratadine [Claritin] Allergy (Unknown, Verified 12/10/23 10:) Headache pantoprazole [Protonix] Allergy (Unknown, Verified 12/10/23 10:) Nausea and Vomiting Sulfa (Sulfonamide Antibiotics) Allergy (Unknown, Verified 12/10/23 10:) Hives and Nausea sulfamethoxazole [From BACTRIM] Allergy (Unknown, Verified 12/10/23 10:) HIVES AND NAUSEA trimethoprim [From BACTRIM] Allergy (Unknown, Verified 12/10/23 10:28) HIVES AND NAUSEA zafirlukast [From ACCOLATE] Allergy (Unknown, Verified 12/10/23 10:28) HIVES AND NAUSEA cephalexin Allergy (Unknown, Uncoded 01/29/23 12:59) Unknown ethylsuccinate Allergy (Unknown, Uncoded 01/29/23 12:59) Unknown Fluoxetine Allergy (Unknown, Uncoded 01/29/23 12:59) Unknown fluticasone Allergy (Unknown, Uncoded 01/29/23 12:59) Unknown Folastin Allergy (Unknown, Uncoded 01/29/23 12:59) Unknown FOLEX Allergy (Unknown, Uncoded 01/29/23 12:59) HIVES AND NAUSEA furoate Allergy (Unknown, Uncoded 01/29/23 12:59) Unknown mometasone Allergy (Unknown, Uncoded 01/29/23 12:59) Unknown ofloxacin Allergy (Unknown, Uncoded 01/29/23 12:59) Unknown omeprazole Allergy (Unknown, Uncoded 01/29/23 12:59) Unknown penicillins Allergy (Unknown, Uncoded 01/29/23 12:59) Hives propionate Allergy (Unknown, Uncoded 01/29/23 12:59) Unknown Symbicort Allergy (Unknown, Uncoded 01/29/23 12:59) Unknown Medication List - Last Reconciled 03/19/23 by Henrietta Wilkinson MD acetaminophen 500 mg PO Q6H PRN albuterol sulfate 90 mcg/actuation (Proventil HFA) 1 puff inhalation QID PRN cholecalciferol (vitamin D3) (Vitamin D3) 50 mcg PO DAILY dicyclomine 20 mg PO TID PRN 30 days Lactobacillus acidophilus (Probiotic) 10,000 mmu cells PO DAILY lansoprazole 30 mg PO DAILY 30 days lorazepam (Ativan) 0.5 mg PO BID PRN meclizine 25 mg PO DAILY PRN nortriptyline 100 mg PO BEDTIME polyethylene glycol 3350 (Miralax) 17 grams PO DAILY 15 days propranolol 20 mg PO BID HPI 3 month fu HPI Details GI CLINIC VISIT FOR THIS 53-YEAR-OLD FEMALE FOR FOLLOW-UP OF GERD AND EPIGASTRIC PAIN. ? LABS IN [facility]: 03/21/20 NORMAL CBC, PLATELET COUNT 156, NORMAL CHEM PANEL WITH MINIMAL INCREASE IN AST AND ALT, ALBUMIN 4.3 (PATIENT HAD INTERMITTENT ELEVATION OF LFTS IN THE PAST). ? 01/10 NADIA SCREEN WAS NEGATIVE, CELIAC AND IBD SEROLOGIES WERE NORMAL ? 08/10 INR 1.1, ?IMAGING STUDIES: 12/24/20 ABDOMINAL ULTRASOUND SHOWED: ? LIVER: The liver is normal in size. The liver contour is normal. There ? is a slight increased liver echogenicity. No focal hepatic lesion. ? There is no intrahepatic biliary duct dilatation seen. 03/27/[address] SCAN SHOWED: ? 3 bilateral nonobstructive radiopaque calculi lower pole calyx right kidney. ? There is no hydroureter or nephrosis. ? Mild constipation. Appendix is not visualized with certainty. No inflammatory process seen in the abdomen. ?03/04/20 GASTRIC EMPTYING STUDY WAS NORMAL: ? Retention in the stomach at each time interval was: ? 1 hour 57% (normal 37%-90%) ? 2 hours 4% (normal 30%-60%) ? 3 hours 2% ? 4 hours (Not Obtained) (normal 0%-10%) ?09/15 A HIDA SCAN WAS NORMAL. ?ENDOSCOPIC PROCEDURES: 01/2022 COLONOSCOPY SHOWED: Colonoscopy Findings: One medium sized adenomatous polyp removed. Random biopsies were obtained from the right and left colon and rectum - normal Moderate diverticulosis seen in the sigmoid colon Plan:? Repeat Colonoscopy interval based on path results - in 3 years if polyps are adenomatous and 10 years if polyps are hyperplastic. (Adult colonoscope for future colonoscopies) 09/2019 [address]GD [address] KIRK: ? Endoscopy Findings: ? esophagitis ? mild gastritis ? Plan: ? Await pathology results ? Might benefit from trial of PPI if not taking ? if path neg and ongoing sx then gES to rule out gastroparesis ?BIOPSIES SHOWED: ? A. Duodenum, biopsies: Duodenal mucosa with no significant histopathology; no villous ? abnormality identified; no increase in intraepithelial lymphocytes. ? B. Stomach, biopsies: Gastric mucosa with mild chronic, inactive gastritis; negative ? for Helicobacter pylori organisms; negative for intestinal metaplasia; negative for dysplasia. ? C. Stomach, polyp, biopsy: Fundic gland polyp with background mild chronic inactive ? inflammation; no Helicobacter organisms seen. ? D. GE junction, biopsies: Gastroesophageal junctional mucosa with mild to moderate ? chronic inflammation and squamous epithelium with reactive features suggestive of reflux ? disease; negative for intestinal metaplasia; negative for dysplasia. ? ??TODAY'S VISIT ?Abdominal pain and nausea is about the same. Stomach gets gasy with bloating and distension. Has a BM daily and stool are not hard. Continuing to take a light diet. Taking Lansoprazole, a probiotic and dicyclomine with a little improvement in symptoms. Scheduled for an UGISBFT and unable to do since she was not prepared to stay the entire day. She was told she will be given a sugary drink after barium and she is unable to take high sugar foods since she it makes her pass out. Had a big operation at age 15 yrs - intestines swelled and put pressure on the appendix which ruptured the appendix and it was removed. PAST VISIT: Stomach does? not feel well after eating - an hour after eating Taking chicken noodle or [employer] soups. Takes cornflakes with half a banana for breakfast Small pancake and an egg white for lunch And soup again for dinner. Starts sweating and feeling sick before she has to have a BM Feels sick and weak after she is done with BM Denies fever, chills or sweating Colonoscopy results reviewed with the patient. Nausea varies from time to time - comes and goes Scheduled a colonoscopy and her 31 year old son got hit by the [place] bus and had a broken arm. Had to cancel her colonoscopy appt. Continues to have abdominal pain and nausea without significant change in symptoms. Gets hot and sweaty when she goes to the bathroom to have a BM. Has a shooting pain which goes up through the rectum to the stomach. Notes nausea and denies vomiting. Denies feeling dizzy or lightheaded. ? Pt states pains in my stomach, upper right quadrant pain. No irregular bowel movements just pains. Sometimes pain goes over to the left side too. Ran out of the pepcid - she was taking it prn and it helped just a little bit Feels sick to her stomach after she eats. Denies any changes in her weight. Taking soups - even when she takes soups, she feels nauseous after she eats. Stomach starts hurting when she tries to take other foods. Has a BM every other day without any change in abdominal pain. Has lost 5 lbs - weighed 135 lbs on her last visit. pt states i keep getting the pain in my stomach and i keep getting nausea when i eat. I'm still feeling bloated, all the same stuff. mushy Bowel movement. Denies any change in symptoms Stools are mushy and has a BM every day - mostly at night. Appetite is so so - feels nauseous when she eats. Weight is staying the same or a little bit?more PFSH Medical History Allergic rhinitis Anxiety Aortic stenosis Asthma Bicuspid aortic valve Depression Fibromyalgia GERD (gastroesophageal reflux disease) History of tachycardia Hypoglycemia IBS (irritable bowel syndrome) Inappropriate sinus node tachycardia Kidney stones Migraine Mitral and aortic regurgitation Pancytopenia Vertigo Surgical History Hx of tubal ligation History of loop electrical excision procedure (LEEP) Hx of ovarian cystectomy History of eye surgery Hx of dilation and curettage History of left knee surgery History of appendectomy History of esophagogastroduodenoscopy (EGD) Family History Father Larynx cancer Mother CVD (cardiovascular disease) Stroke Maternal Grandmother Ovarian cancer Colon cancer Family/Other History of breast cancer Social History Household Members: Spouse Housing: House Are you a primary manager career to a significant other at home: No Do you presently have visiting nurse or other home services: No Alcohol intake: never Comment: mild cramping Patient Tobacco Use Status: Never used Tobacco service: No Current occupational status: disabled Sexual orientation: Straight/Heterosexual Gender identity: Female Review of Systems Const All systems reviewed & are unremarkable except as noted in HPI and below Physical Exam Vital Signs: Last Vital Signs Pulse 87 03/19/23 10:32 BP 93/63 03/19/23 10:32 BMI result Body Mass Index 24.7 Const General: healthy appearing and no acute distress Nutritional Appearance: average body habitus Orientation/consciousness: patient oriented x3 Limitations: no limitations HEENT Head: Yes normal to inspection Ears: hearing grossly normal bilaterally Eyes Sclerae: sclerae normal Pupils: Equal, round and reactive pupils present Neck Neck: Yes normal visual inspection Chest Chest palpation & inspection: normal inspection of the chest Resp Effort & Inspection: normal respiratory effort Auscultation: clear to auscultation bilaterally Cardio Palpation: normal PMI Rate: regular rate Rhythm: regular rhythm Heart sounds: S1 normal heart sound present, S2 normal heart sound present and no murmurs GI Palpation (GI): Soft to palpation, Tenderness to palpation present (GI) (focal tenderness in epigastrium/right paraumblical area) and No hepatosplenomegaly present Auscultation: normal bowel sounds Rectal Exam - Female: deferred Skin General skin exam: no rashes or lesions noted Neuro General: patient oriented x3, gait normal and moves all extremities Cranial nerves: Yes Equal, round and reactive pupils present Psych Appearance: grossly normal Mental Status: mental status grossly normal Assessment & Plan Assessment & Plan (1) Adenomatous colon polyp: Comment: 01/2022 medium-sized adenomatous polyp removed from the right colon. Follow-up colonoscopy advised in 3 years (due 01/2025) Code(s): D12.6 - Benign neoplasm of colon, unspecified (2) Abdominal bloating: Code(s): R14.0 - Abdominal distension (gaseous) (3) Nausea: Code(s): R11.0 - Nausea (4) Lactose intolerance: Code(s): E73.9 - Lactose intolerance, unspecified (5) IBS (irritable bowel syndrome): Code(s): K58.9 - Irritable bowel syndrome without diarrhea (6) GERD (gastroesophageal reflux disease): Code(s): K21.9 - Gastro-esophageal reflux disease without esophagitis Plan 53 YF with aortic valve disorder, asthma, fibromyalgia and anxiety followed in GI for GERD and postprandial upper abdominal pain of unclear etiology. Past evaluation with upper endoscopy, abdominal ultrasound and HIDA scan did not reveal a clear etiology for the pain. Patient admits to early satiety and nausea suggesting her symptoms may be due to idiopathic gastroparesis. A gastric emptying study was normal. 03/27/[address] scan showed mild constipation without inflammatory changes in the abdomen. Patient's symptoms are likely due to small intestinal bacterial overgrowth. Patient took metronidazole without any change in her symptoms. Just started a FODMAP diet. Advised to schedule a colonoscopy - she expressed reluctance due to concern about complications and pain after the procedure. She agreed to having the colonoscopy after multiple reassurances that procedure is low risk. She was advised a trial of taking MiraLax 3 times a week to see if for abdominal pain will improve by management of constipation - denied any change in symptoms after taking MiraLax. Pt has mild pancytopenia with low platelet count and mildly elevated transaminases - transaminases have normalized. Patient was advised a trial of dicyclomine p.r.n. for abdominal pain. She was reminded to complete stool tests (to rule out malabsorption) ordered after her clinic visit in September 2020. Stool hemoccults x3 were negative 01/2022 a medium sized adenomatous polyp was removed during colonoscopy. Random biopsies obtained from the right and left colon and rectum were normal. Repeat colon advised in 3 yrs. 09/04/22 Pt was advised to take Miralax daily x 2 weeks to see if her abdominal symptoms improve She will be scheduled for an upper GI with small-bowel follow-through ((of note, pt gives a hx of skin rash after receiving IV contrast for a CT scan in the past) 03/19/23 Abdominal pain and nausea is about the same. Stomach gets gasy with bloating and distension. Has a BM daily and stool are not hard. Continuing to take a light diet. Taking Lansoprazole, a probiotic and dicyclomine with a little improvement in symptoms. Scheduled for an UGISBFT and unable to do since she was not prepared to stay the entire day. She was told she will be given a sugary drink after barium and she is unable to take high sugar foods since she it makes her pass out. Had a big operation at age 15 yrs - intestines swelled and put pressure on the appendix which ruptured the appendix and it was removed. Pt advised to check stool for fat, pancreatic elastase and fecal calprotectin. Follow-up in 4 months Orders: Orders Calprotectin, Fecal 03/19/23 R14.0 - Abdominal distension (gaseous) Pancreatic Elastase-1 03/19/23 R14.0 - Abdominal distension (gaseous) Fecal Fat Qualitative 03/19/23 R14.0 - Abdominal distension (gaseous) Coding Level of Care Code Est Pt Level 4 (13731) Diagnoses Adenomatous colon polyp D12.6 Abdominal bloating R14.0 Nausea R11.0 Lactose intolerance E73.9 IBS (irritable bowel syndrome) K58.9 GERD (gastroesophageal reflux disease) K21.9 Time Spent (min) 18
[2023-03-19 10:32] VITALS: BP 93/63; PULSE 87; BMI 24.7
== END 2023-03-19 11:21 | disposition home or self-care (01) ==
PROVIDERS: PCP Nurse Practitioner Primary Care; Visit Provider Internal Medicine Gastroenterology
DX: D12.6 Benign neoplasm of colon, unspecified (principal); R14.0 Abdominal distension (gaseous); R11.0 Nausea; E73.9 Lactose intolerance, unspecified; K58.9 Irritable bowel syndrome, unspecified; K21.9 Gastro-esophageal reflux disease without esophagitis
CPT/HCPCS: 99499

== ENCOUNTER → 2023-03-19 10:24 | Outpatient (BNVA) | payer MEDICAID, SELFPAY | PROVIDERS: PCP Nurse Practitioner Primary Care; Visit Provider Internal Medicine Gastroenterology ==

== ENCOUNTER → 2023-03-26 13:23 | Outpatient (BNVA) | payer MEDICAID, SELFPAY | PROVIDERS: PCP Nurse Practitioner Primary Care; Visit Provider Advanced Practice Midwife ==

== ENCOUNTER 2023-05-18 15:49 | Outpatient (REF) | payer MEDICAID, SELFPAY ==
[2023-05-19 05:19] LABS: CT PCR NOT DETECTED (Not Detect.); NG PCR NOT DETECTED (Not Detect.)
[2023-05-19 10:06] LABS: BV Int Neg Control Negative (Negative); BV Int Pos Control Positive (Positive)
== END 2023-05-18 15:50 | disposition home or self-care (01) ==
LOC: HO.HHCLNP 15:49
PROVIDERS: Visit Provider Registered Nurse
DX: Z11.3 Encounter for screening for infections with a predominantly sexual mode of transmission (principal); J04.0 Acute laryngitis
CPT/HCPCS: 0353U; 87480; 87510; 87660

== ENCOUNTER 2023-07-30 10:23 | Outpatient (AMB) | payer MEDICAID, SELFPAY ==
--- NOTE | 2023-07-30 10:31 | A.OFFVIS_ITS ---
Intake Vital Signs 07/30/23 10:33 Height 5 ft 1 in Weight 136 lb BMI 25.7 BP 99/68 Blood Pressure Location Lt brachial Position Sitting Pulse 93 Intake Visit Reasons: 4 month follow up Intake Note: Patient follow up for abdominal bloating Patient cc: abdominal discomfort with bloating, acid reflex, hoarseness voice and denies any other GI issues. Demographer Required: No Accompanied by: Self / Same As Patient Allergies amitriptyline [AMITRIPTYLINE] Allergy (Unknown, Verified 07/30/23 10:30) ANGER aspirin [ASPIRIN] Allergy (Unknown, Verified 07/30/23 10:30) HIVES AND NAUSEA azithromycin [AZITHROMYCIN] Allergy (Unknown, Verified 07/30/23 10:30) HIVES AND NAUSEA doxycycline Allergy (Unknown, Verified 07/30/23 10:30) Hives, nausea erythromycin base [ERYTHROMYCIN BASE] Allergy (Unknown, Verified 07/30/23 10:30) Nausea and Vomiting fluticasone [From FLOVENT DISKUS] Allergy (Unknown, Verified 07/30/23 10:30) BLISTERS IN MOUTH ibuprofen [IBUPROFEN] Allergy (Unknown, Verified 07/30/23 10:30) HIVES, HEADACHE ifosfamide Allergy (Unknown, Verified 07/30/23 10:30) Unknown loratadine [Claritin] Allergy (Unknown, Verified 07/30/23 10:30) Headache pantoprazole [Protonix] Allergy (Unknown, Verified 07/30/23 10:30) Nausea and Vomiting Sulfa (Sulfonamide Antibiotics) Allergy (Unknown, Verified 07/30/23 10:30) Hives and Nausea sulfamethoxazole [From BACTRIM] Allergy (Unknown, Verified 07/30/23 10:30) HIVES AND NAUSEA trimethoprim [From BACTRIM] Allergy (Unknown, Verified 07/30/23 10:30) HIVES AND NAUSEA zafirlukast [From ACCOLATE] Allergy (Unknown, Verified 07/30/23 10:30) HIVES AND NAUSEA cephalexin Allergy (Unknown, Uncoded 01/29/23 12:59) Unknown ethylsuccinate Allergy (Unknown, Uncoded 01/29/23 12:59) Unknown Fluoxetine Allergy (Unknown, Uncoded 01/29/23 12:59) Unknown fluticasone Allergy (Unknown, Uncoded 01/29/23 12:59) Unknown Folastin Allergy (Unknown, Uncoded 01/29/23 12:59) Unknown FOLEX Allergy (Unknown, Uncoded 01/29/23 12:59) HIVES AND NAUSEA furoate Allergy (Unknown, Uncoded 01/29/23 12:59) Unknown mometasone Allergy (Unknown, Uncoded 01/29/23 12:59) Unknown ofloxacin Allergy (Unknown, Uncoded 01/29/23 12:59) Unknown omeprazole Allergy (Unknown, Uncoded 01/29/23 12:59) Unknown penicillins Allergy (Unknown, Uncoded 01/29/23 12:59) Hives propionate Allergy (Unknown, Uncoded 01/29/23 12:59) Unknown Symbicort Allergy (Unknown, Uncoded 01/29/23 12:59) Unknown Medication List - Last Reconciled 07/30/23 by Henrietta Wilkinson MD acetaminophen 500 mg PO Q6H PRN albuterol sulfate 90 mcg/actuation (Proventil HFA) 1 puff inhalation QID PRN cetirizine 10 mg PO QAM cholecalciferol (vitamin D3) (Vitamin D3) 50 mcg PO DAILY dicyclomine 20 mg PO TID PRN 30 days Lactobacillus acidophilus (Probiotic) 10,000 mmu cells PO DAILY lansoprazole 30 mg PO DAILY 90 days lorazepam (Ativan) 0.5 mg PO BID PRN meclizine 25 mg PO DAILY PRN nortriptyline 100 mg PO BEDTIME polyethylene glycol 3350 (Miralax) 17 grams PO DAILY 15 days propranolol 20 mg PO BID HPI 4 month follow up HPI Details GI CLINIC VISIT FOR THIS 53-YEAR-OLD FEMALE FOR FOLLOW-UP OF GERD AND EPIGASTRIC PAIN. ? LABS IN [facility]: 03/21/20 NORMAL CBC, PLATELET COUNT 156, NORMAL CHEM PANEL WITH MINIMAL INCREASE IN AST AND ALT, ALBUMIN 4.3 (PATIENT HAD INTERMITTENT ELEVATION OF LFTS IN THE PAST). ? 01/10 NADIA SCREEN WAS NEGATIVE, CELIAC AND IBD SEROLOGIES WERE NORMAL ? 08/10 INR 1.1, ?IMAGING STUDIES: 12/24/20 ABDOMINAL ULTRASOUND SHOWED: ? LIVER: The liver is normal in size. The liver contour is normal. There ? is a slight increased liver echogenicity. No focal hepatic lesion. ? There is no intrahepatic biliary duct dilatation seen. 03/27/[address] SCAN SHOWED: ? 3 bilateral nonobstructive radiopaque calculi lower pole calyx right kidney. ? There is no hydroureter or nephrosis. ? Mild constipation. Appendix is not visualized with certainty. No inflammatory process seen in the abdomen. ?03/04/20 GASTRIC EMPTYING STUDY WAS NORMAL: ? Retention in the stomach at each time interval was: ? 1 hour 57% (normal 37%-90%) ? 2 hours 4% (normal 30%-60%) ? 3 hours 2% ? 4 hours (Not Obtained) (normal 0%-10%) ?09/15 A HIDA SCAN WAS NORMAL. ?ENDOSCOPIC PROCEDURES: 01/2022 COLONOSCOPY SHOWED: Colonoscopy Findings: One medium sized adenomatous polyp removed. Random biopsies were obtained from the right and left colon and rectum - normal Moderate diverticulosis seen in the sigmoid colon Plan:? Repeat Colonoscopy interval based on path results - in 3 years if polyps are adenomatous and 10 years if polyps are hyperplastic. (Adult colonoscope for future colonoscop ies) 09/2019 EGD WAS PERFOR[address] KIRK: ? Endoscopy Findings: ? esophagitis ? mild gastritis ? Plan: ? Await pathology results ? Might benefit from trial of PPI if not taking ? if path neg and ongoing sx then gES to rule out gastroparesis ?BIOPSIES SHOWED: ? A. Duodenum, biopsies: Duodenal mucosa with no significant histopathology; no villous ? abnormality identified; no increase in intraepithelial lymphocytes. ? B. Stomach, biopsies: Gastric mucosa with mild chronic, inactive gastritis; negative ? for Helicobacter pylori organisms; negative for intestinal metaplasia; negative for dysplasia. ? C. Stomach, polyp, biopsy: Fundic gland polyp with background mild chronic inactive ? inflammation; no Helicobacter organisms seen. ? D. GE junction, biopsies: Gastroesophageal junctional mucosa with mild to moderate ? chronic inflammation and squamous epithelium with reactive features suggestive of reflux ? disease; negative for intestinal metaplasia; negative for dysplasia. ? ??TODAY'S VISIT Complains of intermittent hoarseness Has mold in the apartment and the carpet and its is being changed. Had a single episode of acid reflux in the past. Abd pain comes and goes - unable to identify any precipitating factors Continues to have bloating and gas isnt as bad. Takes Miralax prn for constipation. Nausea is intermittent. PAST VISIT: ?Abdominal pain and nausea is about the same. Stomach gets gasy with bloating and distension. Has a BM daily and stool are not hard. Continuing to take a light diet. Taking Lansoprazole, a probiotic and dicyclomine with a little improvement in symptoms. Scheduled for an UGISBFT and unable to do since she was not prepared to stay the entire day. She was told she will be given a sugary drink after barium and she is unable to take high sugar foods since she it makes her pass out. Had a big operation at age 15 yrs - intestines swelled and put pressure on the appendix which ruptured the appendix and it was removed. Stomach does? not feel well after eating - an hour after eating Taking chicken noodle or [employer] soups. Takes cornflakes with half a banana for breakfast Small pancake and an egg white for lunch And soup again for dinner. Starts sweating and feeling sick before she has to have a BM Feels sick and weak after she is done with BM Denies fever, chills or sweating Colonoscopy results reviewed with the patient. Nausea varies from time to time - comes and goes Scheduled a colonoscopy and her 31 year old son got hit by the [employer] bus and had a broken arm. Had to cancel her colonoscopy appt. Continues to have abdominal pain and nausea without significant change in symptoms. Gets hot and sweaty when she goes to the bathroom to have a BM. Has a shooting pain which goes up through the rectum to the stomach. Notes nausea and denies vomiting. Denies feeling dizzy or lightheaded. ? Pt states pains in my stomach, upper right quadrant pain. No irregular bowel movements just pains. Sometimes pain goes over to the left side too. Ran out of the pepcid - she was taking it prn and it helped just a little bit Feels sick to her stomach after she eats. Denies any changes in her weight. Taking soups - even when she takes soups, she feels nauseous after she eats. Stomach starts hurting when she tries to take other foods. Has a BM every other day without any change in abdominal pain. Has lost 5 lbs - weighed 135 lbs on her last visit. pt states i keep getting the pain in my stomach and i keep getting nausea when i eat. I'm still feeling bloated, all the same stuff. mushy Bowel movement. Denies any change in symptoms Stools are mushy and has a BM every day - mostly at night. Appetite is so so - feels nauseous when she eats. Weight is staying the same or a little bit?more [facility] Medical History Allergic rhinitis Anxiety Aortic stenosis Asthma Bicuspid aortic valve Depression Fibromyalgia GERD (gastroesophageal reflux disease) History of tachycardia Hypoglycemia IBS (irritable bowel syndrome) Inappropriate sinus node tachycardia Kidney stones Migraine Mitral and aortic regurgitation Pancytopenia Vertigo Surgical History Hx of tubal ligation History of loop electrical excision procedure (LEEP) Hx of ovarian cystectomy History of eye surgery Hx of dilation and curettage History of left knee surgery History of appendectomy History of esophagogastroduodenoscopy (EGD) Family History Father Larynx cancer Mother CVD (cardiovascular disease) Stroke Maternal Grandmother Ovarian cancer Colon cancer Family/Other History of breast cancer Social History Household Members: Spouse Housing: House Are you a primary intensive care ambulance paramedic to a significant other at home: No Do you presently have visiting nurse or other home services: No Alcohol intake: never Patient Tobacco Use Status: Never used Tobacco service: No Current occupational status: disabled Sexual orientation: Straight/Heterosexual Gender identity: Female Review of Systems Const All systems reviewed & are unremarkable except as noted in HPI and below Physical Exam Vital Signs: Last Vital Signs Pulse 93 07/30/23 10:33 BP 99/68 07/30/23 10:33 BMI result Body Mass Index 25.7 Const General: healthy appearing and no acute distress Nutritional Appearance: average body habitus Orientation/consciousness: patient oriented x3 Limitations: no limitations HEENT Head: Yes normal to inspection Ears: hearing grossly normal bilaterally Eyes Sclerae: sclerae normal Pupils: Equal, round and reactive pupils present Neck Neck: Yes normal visual inspection Chest Chest palpation & inspection: normal inspection of the chest Resp Effort & Inspection: normal respiratory effort Auscultation: clear to auscultation bilaterally Cardio Palpation: normal PMI Rate: regular rate Rhythm: regular rhythm Heart sounds: S1 normal heart sound present, S2 normal heart sound present and no murmurs GI Palpation (GI): Soft to palpation, Tenderness to palpation present (GI) (focal tenderness in the RUQ/right paraumblical area) and No hepatosplenomegaly present Auscultation: normal bowel sounds Rectal Exam - Female: deferred Skin General skin exam: no rashes or lesions noted Neuro General: patient oriented x3, gait normal and moves all extremities Cranial nerves: Yes Equal, round and reactive pupils present Psych Appearance: grossly normal Mental Status: mental status grossly normal Assessment & Plan Assessment & Plan (1) Adenomatous colon polyp: Comment: 01/2022 medium-sized adenomatous polyp removed from the right colon. Follow-up colonoscopy advised in 3 years (due 01/2025) Code(s): D12.6 - Benign neoplasm of colon, unspecified (2) Abdominal bloating: Code(s): R14.0 - Abdominal distension (gaseous) (3) Nausea: Code(s): R11.0 - Nausea (4) Lactose intolerance: Code(s): E73.9 - Lactose intolerance, unspecified (5) IBS (irritable bowel syndrome): Code(s): K58.9 - Irritable bowel syndrome without diarrhea (6) GERD (gastroesophageal reflux disease): Code(s): K21.9 - Gastro-esophageal reflux disease without esophagitis (7) Hoarseness: Code(s): R49.0 - Dysphonia (8) Abdominal pain: Code(s): R10.9 - Unspecified abdominal pain Plan 53 YF with aortic valve disorder, asthma, fibromyalgia and anxiety followed in GI for GERD and postprandial upper abdominal pain of unclear etiology. Past evaluation with upper endoscopy, abdominal ultrasound and HIDA scan did not reveal a clear etiology for the pain. Patient admits to early satiety and nausea suggesting her symptoms may be due to idiopathic gastroparesis. A gastric emptying study was normal. 03/27/[address] scan showed mild constipation without inflammatory changes in the abdomen. Patient's symptoms are likely due to small intestinal bacterial overgrowth. Patient took metronidazole without any change in her symptoms. Just started a FODMAP diet. Advised to schedule a colonoscopy - she expressed reluctance due to concern about complications and pain after the procedure. She agreed to having the colonoscopy after multiple reassurances that procedure is low risk. She was advised a trial of taking MiraLax 3 times a week to see if for abdominal pain will improve by management of constipation - denied any change in symptoms after taking MiraLax. Pt has mild pancytopenia with low platelet count and mildly elevated transaminases - transaminases have normalized. Patient was advised a trial of dicyclomine p.r.n. for abdominal pain. She was reminded to complete stool tests (to rule out malabsorption) ordered after her clinic visit in September 2020. Stool hemoccults x3 were negative 01/2022 a medium sized adenomatous polyp was removed during colonoscopy. Random biopsies obtained from the right and left colon and rectum were normal. Repeat colon advised in 3 yrs. 09/04/22 Pt was advised to take Miralax daily x 2 weeks to see if her abdominal symptoms improve She will be scheduled for an upper GI with small-bowel follow-through ((of note, pt gives a hx of skin rash after receiving IV contrast for a CT scan in the past) 07/30/23 Complains of intermittent hoarseness Abd pain comes and goes - unable to identify any precipitating factors Continues to have bloating and gas isnt as bad. Takes Miralax prn for constipation. Pt advised to schedule an abd US and increase Lansoprazole to 30 mg twice a day x 3-4 weeks to see if hoarseness improves Follow-up in 4 months Orders: Orders US abdomen complete Today R10.9 - Unspecified abdominal pain Medications: Changed From lansoprazole 30 mg PO DAILY 90 days 90 caps 1RF K21.9 - Gastro-esophageal reflux disease without esophagitis, R49.0 - Dysphonia To lansoprazole 30 mg PO BID 90 days 180 caps 1RF K21.9 - Gastro-esophageal reflux disease without esophagitis, R49.0 - Dysphonia Coding Level of Care Code Est Pt Level 4 (27581) Diagnoses Adenomatous colon polyp D12.6 Abdominal bloating R14.0 Nausea R11.0 Lactose intolerance E73.9 IBS (irritable bowel syndrome) K58.9 GERD (gastroesophageal reflux disease) K21.9 Hoarseness R49.0 Abdominal pain R10.9 Time Spent (min) 21
[2023-07-30 10:33] VITALS: BP 99/68; PULSE 93; BMI 25.7
== END 2023-07-30 11:19 | disposition home or self-care (01) ==
PROVIDERS: PCP Nurse Practitioner Primary Care; Visit Provider Internal Medicine Gastroenterology
DX: D12.6 Benign neoplasm of colon, unspecified (principal); R14.0 Abdominal distension (gaseous); R11.0 Nausea; E73.9 Lactose intolerance, unspecified; K58.9 Irritable bowel syndrome, unspecified; K21.9 Gastro-esophageal reflux disease without esophagitis; R49.0 Dysphonia; R10.9 Unspecified abdominal pain
CPT/HCPCS: 99214

== ENCOUNTER → 2023-07-30 10:23 | Outpatient (BNVA) | payer MEDICAID, SELFPAY | LOC: CF 11:28 | PROVIDERS: PCP Nurse Practitioner Primary Care; Visit Provider Internal Medicine Gastroenterology | DX: K21.9 Gastro-esophageal reflux disease without esophagitis (principal); R10.13 Epigastric pain; R14.0 Abdominal distension (gaseous); R11.0 Nausea; R49.0 Dysphonia; K58.9 Irritable bowel syndrome, unspecified; E73.9 Lactose intolerance, unspecified; D12.6 Benign neoplasm of colon, unspecified | CPT/HCPCS: 99212 ==

== ENCOUNTER 2023-09-17 10:19 | Outpatient (REF) | payer MEDICAID, SELFPAY ==
--- NOTE | ~2023-09-17 | US_ITS ---
EXAMINATION: US ABDOMEN COMPLETE CLINICAL INFORMATION: Unspecified abdominal pain. Patient with right-sided abdominal pain and history of renal stones. Rule out recurrent kidney stones versus biliary/pancreatic source of abdominal pain. COMPARISON: Renal ultrasound 07/22/2022. Ultrasound abdomen complete 12/24/2020. CT abdomen and pelvis 03/27/2020. TECHNIQUE: Real-time imaging of the abdominal viscera. FINDINGS: PANCREAS: Normal. ABDOMINAL AORTA: The proximal, mid, and distal segments are normal in caliber. INFERIOR VENA CAVA: Visualized portions are normal. LIVER: Normal. The liver is normal in size. The liver contour is normal. Parenchymal echogenicity is normal. No focal hepatic lesion. There is no intrahepatic biliary duct dilatation seen. GALLBLADDER: Normal. The gallbladder is physiologically distended without evidence of stones, sludge, polyps, wall thickening or pericholecystic fluid. COMMON BILE DUCT: Normal in caliber measuring 0.3 cm in diameter. RIGHT KIDNEY: 1.0 x 1.1 x 1.1 cm simple upper pole cyst and 0.5 x 0.7 x 0.5 cm simple lower pole cyst are seen. No imaging follow-up is recommended. 0.4 x 0.2 cm nonobstructing calculus is seen in the mid to lower pole. No hydronephrosis The kidney measures 8.0 cm in maximum dimension. LEFT KIDNEY: Normal. No hydronephrosis. No renal calculi or focal parenchymal lesions. The kidney measures 9.2 cm in maximum dimension. SPLEEN: Question 0.9 x 1.0 x 0.7 cm simple exophytic cyst off the superior aspect of the spleen. The spleen measures 9.5 cm in maximum dimension. FREE FLUID: None. US/US abdomen complete IMPRESSION: 1. 0.4 cm nonobstructing calculus in the mid to lower pole of the right kidney. 2. Question of 1.0 cm simple exophytic cyst off the superior aspect of the spleen.
== END 2023-09-17 10:20 | disposition home or self-care (01) ==
LOC: HO.US 10:19
PROVIDERS: PCP Nurse Practitioner Primary Care; Visit Provider Internal Medicine Gastroenterology
DX: R10.9 Unspecified abdominal pain (principal)
CPT/HCPCS: 76700

== ENCOUNTER 2023-09-17 11:31 | Outpatient (REF) | payer MEDICAID, SELFPAY ==
[2023-09-17 12:16] LABS: Estimated Average Glucose 97 mg/dL
[2023-09-17 12:44] LABS: Cholesterol 204 mg/dL (<200); HDL Cholesterol 56 mg/dL (>40); LDL Cholesterol Calculated 113 mg/dL (<100); Triglycerides 178 mg/dL (<150)
== END 2023-09-17 11:32 | disposition home or self-care (01) ==
LOC: HO.LAB 11:31
PROVIDERS: PCP Nurse Practitioner Primary Care; Visit Provider Nurse Practitioner Primary Care
DX: R73.02 Impaired glucose tolerance (oral) (principal)
CPT/HCPCS: 36415; 80061; 83036

== ENCOUNTER 2023-12-10 10:21 | Outpatient (AMB) | payer MEDICAID, SELFPAY ==
--- NOTE | 2023-12-10 10:28 | A.OFFVIS_ITS ---
Intake Vital Signs 12/10/23 10:31 Height 5 ft 1 in Weight 135 lb BMI 25.5 BP 107/68 Blood Pressure Location Lt brachial Position Sitting Pulse 89 Intake Visit Reasons: 4 month follow up abdominal pain and bloating Intake Note: Patient follow up for US results and abdominal pain/bloating. Patient cc: abdominal pain with bloating, denies any other GI issues [employer] Required: No Accompanied by: Self / Same As Patient Allergies amitriptyline [AMITRIPTYLINE] Allergy (Unknown, Verified 12/10/23 10:28) ANGER aspirin [ASPIRIN] Allergy (Unknown, Verified 12/10/23 10:) HIVES AND NAUSEA azithromycin [AZITHROMYCIN] Allergy (Unknown, Verified 12/10/23 10:) HIVES AND NAUSEA doxycycline Allergy (Unknown, Verified 12/10/23 10:) Hives, nausea erythromycin base [ERYTHROMYCIN BASE] Allergy (Unknown, Verified 12/10/23 10:) Nausea and Vomiting fluticasone [From FLOVENT DISKUS] Allergy (Unknown, Verified 12/10/23 10:) BLISTERS IN MOUTH ibuprofen [IBUPROFEN] Allergy (Unknown, Verified 12/10/23 10:28) HIVES, HEADACHE ifosfamide Allergy (Unknown, Verified 12/10/23 10:) Unknown loratadine [Claritin] Allergy (Unknown, Verified 12/10/23 10:) Headache pantoprazole [Protonix] Allergy (Unknown, Verified 12/10/23 10:) Nausea and Vomiting Sulfa (Sulfonamide Antibiotics) Allergy (Unknown, Verified 12/10/23 10:) Hives and Nausea sulfamethoxazole [From BACTRIM] Allergy (Unknown, Verified 12/10/23 10:28) HIVES AND NAUSEA trimethoprim [From BACTRIM] Allergy (Unknown, Verified 12/10/23 10:28) HIVES AND NAUSEA zafirlukast [From ACCOLATE] Allergy (Unknown, Verified 12/10/23 10:28) HIVES AND NAUSEA cephalexin Allergy (Unknown, Uncoded 01/29/23 12:59) Unknown ethylsuccinate Allergy (Unknown, Uncoded 01/29/23 12:59) Unknown Fluoxetine Allergy (Unknown, Uncoded 01/29/23 12:59) Unknown fluticasone Allergy (Unknown, Uncoded 01/29/23 12:59) Unknown Folastin Allergy (Unknown, Uncoded 01/29/23 12:59) Unknown FOLEX Allergy (Unknown, Uncoded 01/29/23 12:59) HIVES AND NAUSEA furoate Allergy (Unknown, Uncoded 01/29/23 12:59) Unknown mometasone Allergy (Unknown, Uncoded 01/29/23 12:59) Unknown ofloxacin Allergy (Unknown, Uncoded 01/29/23 12:59) Unknown omeprazole Allergy (Unknown, Uncoded 01/29/23 12:59) Unknown penicillins Allergy (Unknown, Uncoded 01/29/23 12:59) Hives propionate Allergy (Unknown, Uncoded 01/29/23 12:59) Unknown Symbicort Allergy (Unknown, Uncoded 01/29/23 12:59) Unknown Medication List - Last Reconciled 12/10/23 by Henrietta Wilkinson MD acetaminophen 500 mg PO Q6H PRN albuterol sulfate 90 mcg/actuation (Proventil HFA) 1 puff inhalation QID PRN cetirizine 10 mg PO QAM cholecalciferol (vitamin D3) (Vitamin D3) 50 mcg PO DAILY dicyclomine 20 mg PO TID PRN 30 days Lactobacillus acidophilus (Probiotic) 10,000 mmu cells PO DAILY lansoprazole 30 mg PO BID 90 days lorazepam (Ativan) 0.5 mg PO BID PRN meclizine 25 mg PO DAILY PRN nortriptyline 100 mg PO BEDTIME polyethylene glycol 3350 (Miralax) 17 grams PO DAILY 15 days propranolol 20 mg PO BID HPI 4 month follow up abdominal pain and bloating HPI Details GI CLINIC VISIT FOR THIS 53-YEAR-OLD FEMALE FOR FOLLOW-UP OF GERD AND EPIGASTRIC PAIN. ? LABS IN [facility]: 03/21/20 NORMAL CBC, PLATELET COUNT 156, NORMAL CHEM PANEL WITH MINIMAL INCREASE IN AST AND ALT, ALBUMIN 4.3 (PATIENT HAD INTERMITTENT ELEVATION OF LFTS IN THE PAST). ? 01/10 NADIA SCREEN WAS NEGATIVE, CELIAC AND IBD SEROLOGIES WERE NORMAL ? 08/10 INR 1.1, ?IMAGING STUDIES: 09/17/23 ABD US SHOWED: 1. 0.4 cm nonobstructing calculus in th e mid to lower pole of the right kidney. 2. Question of 1.0 cm simple exophytic cyst off the superior aspect of the spleen. 12/24/20 ABDOMINAL ULTRASOUND SHOWED: ? LIVER: The liver is normal in size. The liver contour is normal. There ? is a slight increased liver echogenicity. No focal hepatic lesion. ? There is no intrahepatic biliary duct dilatation seen. 03/27/[address] SCAN SHOWED:? 3 bilateral nonobstructive radiopaque c alculi lower pole calyx right kidney. ? There is no hydroureter or nephrosis. ? Mild constipation. Appendix is not visualized with certainty. No inflammatory process seen in the abdomen. ?03/04/20 GASTRIC EMPTYING STUDY WAS NORMAL: ? Retention in the stomach at each time interval was: ? 1 hour 57% (normal 37%-90%) ? 2 hours 4% (normal 30%-60%) ? 3 hours 2% ? 4 hours (Not Obtained) (normal 0%-10%) ?09/15 A HIDA SCAN WAS NORMAL. ?ENDOSCOPIC PROCEDURES: 01/2022 COLONOSCOPY SHOWED: Colonoscopy Findings: One medium sized adenomatous polyp removed. Random biopsies were obtained from the right and left colon and rectum - normal Moderate diverticulosis seen in the sigmoid colon Plan:? Repeat Colonoscopy interval based on path results - in 3 years if polyps are adenomatous and 10 years if polyps are hyperplastic. (Adult colonoscope for future colonoscop ies) 09/2019 EGD WAS PERFOR[address] KIRK:? Endoscopy Findings: ? esophagitis ? mild gastritis ? Plan: ? Await pathology results ? Might benefit from trial of PPI if not taking ? if path neg and ongoing sx then gES to rule out gastroparesis ?BIOPSIES SHOWED: ? A. Duodenum, biopsies: Duodenal mucosa with no significant histopathology; no villous ? abnormality identified; no increase in intraepithelial lymphocytes. ? B. Stomach, biopsies: Gastric mucosa with mild chronic, inactive gastritis; negative ? for Helicobacter pylori organisms; negative for intestinal metaplasia; negative for dysplasia. ? C. Stomach, polyp, biopsy: Fundic gland polyp with background mild chronic inactive ? inflammation; no Helicobacter organisms seen. ? D. GE junction, biopsies: Gastroesophageal junctional mucosa with mild to moderate ? chronic inflammation and squamous epithelium with reactive features suggestive of reflux ? disease; negative for intestinal metaplasia; negative for dysplasia. ? ??TODAY'S VISIT Patient follow up for US results and abdominal pain/bloating. Patient cc: abdominal pain with bloating, denies any other GI issues Hoarseness is less frequent. Continues to have abdominal pain on and off. Has nausea when she has a BM. Stomach feels off and takes a light diet. Stomach bothers more if she eats something heavy. Has a BM once to twice a day or every other day. PAST VISIT: Complains of intermittent hoarseness Has mold in the apartment and the carpet and its is being changed. Had a single episode of acid reflux in the past. Abd pain comes and goes - unable to identify any precipitating factors Continues to have bloating and gas isnt as bad. Takes Miralax prn for constipation. Nausea is intermittent. ?Abdominal pain and nausea is about the same. Stomach gets gasy with bloating and distension. Has a BM daily and stool are not hard. Continuing to take a light diet. Taking Lansoprazole, a probiotic and dicyclomine with a little improvement in symptoms. Scheduled for an UGISBFT and unable to do since she was not prepared to stay the entire day. She was told she will be given a sugary drink after barium and she is unable to take high sugar foods since she it makes her pass out. Had a big operation at age 15 yrs - intestines swelled and put pressure on the appendix which ruptured the appendix and it was removed. Stomach does? not feel well after eating - an hour after eating Taking chicken noodle or [employer] soups. Takes cornflakes with half a banana for breakfast Small pancake and an egg white for lunch And soup again for dinner. Starts sweating and feeling sick before she has to have a BM Feels sick and weak after she is done with BM Denies fever, chills or sweating Colonoscopy results reviewed with the patient. Nausea varies from time to time - comes and goes Scheduled a colonoscopy and her 31 year old son got hit by the [employer] bus and had a broken arm. Had to cancel her colonoscopy appt. Continues to have abdominal pain and nausea without significant change in symptoms. Gets hot and sweaty when she goes to the bathroom to have a BM. Has a shooting pain which goes up through the rectum to the stomach. Notes nausea and denies vomiting. Denies feeling dizzy or lightheaded. ? Pt states pains in my stomach, upper right quadrant pain. No irregular bowel movements just pains. Sometimes pain goes over to the left side too. Ran out of the pepcid - she was taking it prn and it helped just a little bit Feels sick to her stomach after she eats. Denies any changes in her weight. Taking soups - even when she takes soups, she feels nauseous after she eats. Stomach starts hurting when she tries to take other foods. Has a BM every other day without any change in abdominal pain. Has lost 5 lbs - weighed 135 lbs on her last visit. pt states i keep getting the pain in my stomach and i keep getting nausea when i eat. I'm still feeling bloated, all the same stuff. mushy Bowel movement. Denies any change in symptoms Stools are mushy and has a BM every day - mostly at night. Appetite is so so - feels nauseous when she eats. Weight is staying the same or a little bit?more PFSH Medical History Allergic rhinitis Anxiety Aortic stenosis Asthma Bicuspid aortic valve Depression Fibromyalgia GERD (gastroesophageal reflux disease) History of tachycardia Hypoglycemia IBS (irritable bowel syndrome) Inappropriate sinus node tachycardia Kidney stones Migraine Mitral and aortic regurgitation Pancytopenia Vertigo Surgical History Hx of tubal ligation History of loop electrical excision procedure (LEEP) Hx of ovarian cystectomy History of eye surgery Hx of dilation and curettage History of left knee surgery History of appendectomy History of esophagogastroduodenoscopy (EGD) Family History Father Larynx cancer Mother CVD (cardiovascular disease) Stroke Maternal Grandmother Ovarian cancer Colon cancer Family/Other History of breast cancer Social History Household Members: Spouse Housing: House Are you a primary critical care specialist to a significant other at home: No Do you presently have visiting nurse or other home services: No Alcohol intake: never Comment: mild cramping Patient Tobacco Use Status: Never used Tobacco service: No Current occupational status: disabled Sexual orientation: Straight/Heterosexual Gender identity: Female Review of Systems Const All systems reviewed & are unremarkable except as noted in HPI and below Physical Exam Vital Signs: Last Vital Signs Pulse 89 12/10/23 10:31 BP 107/68 12/10/23 10:31 BMI result Body Mass Index 25.5 Const General: healthy appearing and no acute distress Nutritional Appearance: average body habitus Orientation/consciousness: patient oriented x3 Limitations: no limitations HEENT Head: Yes normal to inspection Ears: hearing grossly normal bilaterally Eyes Sclerae: sclerae normal Pupils: Equal, round and reactive pupils present Neck Neck: Yes normal visual inspection Chest Chest palpation & inspection: normal inspection of the chest Resp Effort & Inspection: normal respiratory effort Auscultation: clear to auscultation bilaterally Cardio Palpation: normal PMI Rate: regular rate Rhythm: regular rhythm Heart sounds: S1 normal heart sound present, S2 normal heart sound present and no murmurs GI Palpation (GI): Soft to palpation, Tenderness to palpation present (GI) (focal tenderness in epigastrium/right paraumblical area) and No hepatosplenomegaly present Auscultation: normal bowel sounds Rectal Exam - Female: deferred Skin General skin exam: no rashes or lesions noted Neuro General: patient oriented x3, gait normal and moves all extremities Cranial nerves: Yes Equal, round and reactive pupils present Psych Appearance: grossly normal Mental Status: mental status grossly normal Assessment & Plan Assessment & Plan (1) Adenomatous colon polyp: Comment: 01/2022 medium-sized adenomatous polyp removed from the right colon. Follow-up colonoscopy advised in 3 years (due 01/2025) Code(s): D12.6 - Benign neoplasm of colon, unspecified (2) Abdominal bloating: Code(s): R14.0 - Abdominal distension (gaseous) (3) Nausea: Code(s): R11.0 - Nausea (4) Lactose intolerance: Code(s): E73.9 - Lactose intolerance, unspecified (5) Abdominal pain: Code(s): R10.9 - Unspecified abdominal pain (6) IBS (irritable bowel syndrome): Code(s): K58.9 - Irritable bowel syndrome without diarrhea (7) GERD (gastroesophageal reflux disease): Code(s): K21.9 - Gastro-esophageal reflux disease without esophagitis Plan 53 YF with aortic valve disorder, asthma, fibromyalgia and anxiety followed in GI for GERD and postprandial upper abdominal pain of unclear etiology. Past evaluation with upper endoscopy, abdominal ultrasound and HIDA scan did not reveal a clear etiology for the pain. Patient admits to early satiety and nausea suggesting her symptoms may be due to idiopathic gastroparesis. A gastric emptying study was normal. 03/27/[address] scan showed mild constipation without inflammatory changes in the abdomen. Patient's symptoms are likely due to small intestinal bacterial overgrowth. Patient took metronidazole without any change in her symptoms. Just started a FODMAP diet. Advised to schedule a colonoscopy - she expressed reluctance due to concern about complications and pain after the procedure. She agreed to having the colonoscopy after multiple reassurances that procedure is low risk. She was advised a trial of taking MiraLax 3 times a week to see if for abdominal pain will improve by management of constipation - denied any change in symptoms after taking MiraLax. Pt has mild pancytopenia with low platelet count and mildly elevated transaminases - transaminases have normalized. Patient was advised a trial of dicyclomine p.r.n. for abdominal pain. She was reminded to complete stool tests (to rule out malabsorption) ordered after her clinic visit in September 2020. Stool hemoccults x3 were negative 01/2022 a medium sized adenomatous polyp was removed during colonoscopy. Random biopsies obtained from the right and left colon and rectum were normal. Repeat colon advised in 3 yrs. 09/04/22 Pt was advised to take Miralax daily x 2 weeks to see if her abdominal symptoms improve She will be scheduled for an upper GI with small-bowel follow-through ((of note, pt gives a hx of skin rash after receiving IV contrast for a CT scan in the past) 07/30/23 Complains of intermittent hoarseness Abd pain comes and goes - unable to identify any precipitating factors Continues to have bloating and gas isnt as bad. Takes Miralax prn for constipation. Pt advised to schedule an abd US and increase Lansoprazole to 30 mg twice a day x 3-4 weeks to see if hoarseness improves 12/10/23 Continues to have abdominal pain on and off. Has nausea when she has a BM. Stomach feels off and takes a light diet. Stomach bothers more if she eats something heavy. Pt advised a trail of green tea and Peppermint oil for abdominal pain (Likely non-ulcer dyspepsia) She is planning to complete stool tests in the next few day Follow-up in 4 month Coding Level of Care Code Est Pt Level 4 (82927) Diagnoses Adenomatous colon polyp D12.6 Abdominal bloating R14.0 Nausea R11.0 Lactose intolerance E73.9 Abdominal pain R10.9 IBS (irritable bowel syndrome) K58.9 GERD (gastroesophageal reflux disease) K21.9 Time Spent (min) 18
[2023-12-10 10:31] VITALS: BP 107/68; PULSE 89; BMI 25.5
== END 2023-12-10 11:56 | disposition home or self-care (01) ==
PROVIDERS: PCP Nurse Practitioner Primary Care; Visit Provider Internal Medicine Gastroenterology
DX: D12.6 Benign neoplasm of colon, unspecified (principal); R14.0 Abdominal distension (gaseous); R11.0 Nausea; E73.9 Lactose intolerance, unspecified; R10.9 Unspecified abdominal pain; K58.9 Irritable bowel syndrome, unspecified; K21.9 Gastro-esophageal reflux disease without esophagitis
CPT/HCPCS: 99214

== ENCOUNTER → 2023-12-10 10:21 | Outpatient (BNVA) | payer MEDICAID, SELFPAY | PROVIDERS: PCP Nurse Practitioner Primary Care; Visit Provider Internal Medicine Gastroenterology | DX: R14.0 Abdominal distension (gaseous) (principal); R11.0 Nausea; E73.9 Lactose intolerance, unspecified; R10.9 Unspecified abdominal pain; K58.9 Irritable bowel syndrome, unspecified; K21.9 Gastro-esophageal reflux disease without esophagitis; Z86.010 Personal history of colon polyps | CPT/HCPCS: 99212 ==

== ENCOUNTER 2023-12-16 12:21 | Outpatient (REF) | payer MEDICAID, SELFPAY | END 2023-12-16 12:22 | disposition home or self-care (01) | LOC: HO.MAMMO 12:21 | PROVIDERS: PCP Nurse Practitioner Primary Care; Visit Provider Nurse Practitioner Primary Care | DX: Z12.31 Encounter for screening mammogram for malignant neoplasm of breast (principal) | CPT/HCPCS: 77063; 77067 ==

== ENCOUNTER → 2023-12-16 12:45 | Outpatient (BNV) | payer MEDICAID, SELFPAY | PROVIDERS: PCP Nurse Practitioner Primary Care; Visit Provider Radiology Diagnostic Radiology | DX: Z12.31 Encounter for screening mammogram for malignant neoplasm of breast (principal) | CPT/HCPCS: 77063; 77067 ==

== ENCOUNTER 2024-01-28 13:00 | Outpatient (REF) | payer MEDICAID, SELFPAY ==
[2024-02-05 17:03] LABS: Pancreatic Elastase-1 >500 mcg/g
[2024-02-05 20:38] LABS: Calprotectin, Fecal 331 mcg/g
[2024-02-10 01:58] LABS: Fecal Fat Qualitative NORMAL (NORMAL)
== END 2024-01-28 13:01 | disposition home or self-care (01) ==
LOC: HO.LNP 13:00
PROVIDERS: Visit Provider Internal Medicine Gastroenterology
DX: R14.0 Abdominal distension (gaseous) (principal)
CPT/HCPCS: 82656; 82705; 83993

== ENCOUNTER 2024-04-21 11:28 | Outpatient (AMB) | payer MEDICAID, SELFPAY ==
--- NOTE | 2024-04-21 11:30 | A.OFFVIS_ITS ---
Vital Signs 04/21/24 11:32 Height 5 ft 1 in Weight 140 lb BMI 26.4 BP 107/68 Blood Pressure Location Lt brachial Position Sitting Pulse 94 Intake Visit Reasons: 4 month follow up Intake Note: Patient 4 month follow up for abdominal bloating. Patient cc: abdominal bloating, acid reflex on and off, and poor appetite, denies any other GI issues. Allergies amitriptyline [AMITRIPTYLINE] Allergy (Unknown, Verified 04/21/24 11:30) ANGER aspirin [ASPIRIN] Allergy (Unknown, Verified 04/21/24 11:30) HIVES AND NAUSEA azithromycin [AZITHROMYCIN] Allergy (Unknown, Verified 04/21/24 11:30) HIVES AND NAUSEA doxycycline Allergy (Unknown, Verified 04/21/24 11:30) Hives, nausea erythromycin base [ERYTHROMYCIN BASE] Allergy (Unknown, Verified 04/21/24 11:30) Nausea and Vomiting fluticasone [From FLOVENT DISKUS] Allergy (Unknown, Verified 04/21/24 11:30) BLISTERS IN MOUTH ibuprofen [IBUPROFEN] Allergy (Unknown, Verified 04/21/24 11:30) HIVES, HEADACHE ifosfamide Allergy (Unknown, Verified 04/21/24 11:30) Unknown loratadine [Claritin] Allergy (Unknown, Verified 04/21/24 11:30) Headache pantoprazole [Protonix] Allergy (Unknown, Verified 04/21/24 11:30) Nausea and Vomiting Sulfa (Sulfonamide Antibiotics) Allergy (Unknown, Verified 04/21/24 11:30) Hives and Nausea sulfamethoxazole [From BACTRIM] Allergy (Unknown, Verified 04/21/24 11:30) HIVES AND NAUSEA trimethoprim [From BACTRIM] Allergy (Unknown, Verified 04/21/24 11:30) HIVES AND NAUSEA zafirlukast [From ACCOLATE] Allergy (Unknown, Verified 04/21/24 11:30) HIVES AND NAUSEA cephalexin Allergy (Unknown, Uncoded 01/29/24 12:59) Unknown ethylsuccinate Allergy (Unknown, Uncoded 01/29/24 12:59) Unknown Fluoxetine Allergy (Unknown, Uncoded 01/29/24 12:59) Unknown fluticasone Allergy (Unknown, Uncoded 01/29/24 12:59) Unknown Folastin Allergy (Unknown, Uncoded 01/29/24 12:59) Unknown FOLEX Allergy (Unknown, Uncoded 01/29/24 12:59) HIVES AND NAUSEA furoate Allergy (Unknown, Uncoded 01/29/24 12:59) Unknown mometasone Allergy (Unknown, Uncoded 01/29/24 12:59) Unknown ofloxacin Allergy (Unknown, Uncoded 01/29/24 12:59) Unknown omeprazole Allergy (Unknown, Uncoded 01/29/24 12:59) Unknown penicillins Allergy (Unknown, Uncoded 01/29/24 12:59) Hives propionate Allergy (Unknown, Uncoded 01/29/24 12:59) Unknown Symbicort Allergy (Unknown, Uncoded 01/29/24 12:59) Unknown Medication List - Last Reconciled 04/21/24 by Henrietta Wilkinson MD acetaminophen 500 mg PO Q6H PRN albuterol sulfate 90 mcg/actuation (Proventil HFA) 1 puff inhalation QID PRN cetirizine 10 mg PO QAM cholecalciferol (vitamin D3) (Vitamin D3) 50 mcg PO DAILY dicyclomine 20 mg PO TID PRN 30 days Lactobacillus acidophilus (Probiotic) 10,000 mmu cells PO DAILY lansoprazole 30 mg PO BID 90 days lorazepam (Ativan) 0.5 mg PO BID PRN meclizine 25 mg PO DAILY PRN nortriptyline 100 mg PO BEDTIME polyethylene glycol 3350 (Miralax) 17 grams PO DAILY 15 days propranolol 20 mg PO BID HPI HPI 4 month follow up: Details: GI CLINIC VISIT FOR THIS 53-YEAR-OLD FEMALE FOR FOLLOW-UP OF GERD AND EPIGASTRIC PAIN. ? LABS IN [facility]: 03/21/20 NORMAL CBC, PLATELET COUNT 156, NORMAL CHEM PANEL WITH MINIMAL INCREASE IN AST AND ALT, ALBUMIN 4.3 (PATIENT HAD INTERMITTENT ELEVATION OF LFTS IN THE PAST). ? 01/10 NADIA SCREEN WAS NEGATIVE, CELIAC AND IBD SEROLOGIES WERE NORMAL ? 08/10 INR 1.1, ?IMAGING STUDIES: 09/17/23 ABD US SHOWED: 1. 0.4 cm nonobstructing calculus in the mid to lower pole of the right kidney. 2. Question of 1.0 cm simple exophytic cyst off the superior aspect of the spleen. 12/24/20 ABDOMINAL ULTRASOUND SHOWED:? LIVER: The liver is normal in size. The liver contour is normal. There ? is a slight increased liver echogenicity. No focal hepatic lesion. ? There is no intrahepatic biliary duct dilatation seen. 03/27/[address] SCAN SHOWED:? 3 bilateral nonobstructive radiopaque calculi lower pole calyx right kidney.? There is no hydroureter or nephrosis. ? Mild constipation. Appendix is not visualized with certainty. No inflammatory process seen in the abdomen. ?03/04/20 GASTRIC EMPTYING STUDY WAS NORMAL: ? Retention in the stomach at each time interval was: ? 1 hour 57% (normal 37%-90%) ? 2 hours 4% (normal 30%-60%) ? 3 hours 2% ? 4 hours (Not Obtained) (normal 0%-10%) ?09/15 A HIDA SCAN WAS NORMAL. ?ENDOSCOPIC PROCEDURES: 01/2022 COLONOSCOPY SHOWED: Colonoscopy Findings: One medium sized adenomatous polyp removed. Random biopsies were obtained from the right and left colon and rectum - normal Moderate diverticulosis seen in the sigmoid colon Plan:? Repeat Colonoscopy interval based on path results - in 3 years if polyps are adenomatous and 10 years if polyps are hyperplastic. (Adult colonoscope for future colonoscopies) 09/2019 [address] KIRK:? Endoscopy Findings:? esophagitis ? mild gastritis ? Plan: ? Await pathology results ? Might benefit from trial of PPI if not taking ? if path neg and ongoing sx then gES to rule out gastroparesis ?BIOPSIES SHOWED: ? A. Duodenum, biopsies: Duodenal mucosa with no significant histopathology; no villous ? abnormality identified; no increase in intraepithelial lymphocytes. ? B. Stomach, biopsies: Gastric mucosa with mild chronic, inactive gastritis; negative ? for Helicobacter pylori organisms; negative for intestinal metaplasia; negative for dysplasia. ? C. Stomach, polyp, biopsy: Fundic gland polyp with background mild chronic inactive ? inflammation; no Helicobacter organisms seen. ? D. GE junction, biopsies: Gastroesophageal junctional mucosa with mild to moderate ? chronic inflammation and squamous epithelium with reactive features suggestive of reflux ? disease; negative for intestinal metaplasia; negative for dysplasia. ? ??TODAY'S VISIT Patient cc: abdominal bloating, acid reflex on and off, and poor appetite, denies any other GI issues. Pt was scheduled for a CTE and had to cancel since her son was in a car accident - broken ribs and concussion. Continues to have abdominal bloating. Notes nausea when she eats and has to stop eating. Hoarseness is less frequent. Continues to have abdominal pain on and off. Has nausea when she has a BM. Stomach feels off and takes a light diet. Stomach bothers more if she eats something heavy. Has a BM once to twice a day or every other day. PAST VISIT: Complains of intermittent hoarseness Has mold in the apartment and the carpet and its is being changed. Had a single episode of acid reflux in the past. Abd pain comes and goes - unable to identify any precipitating factors Continues to have bloating and gas isnt as bad. Takes Miralax prn for constipation. Nausea is intermittent. ?Abdominal pain and nausea is about the same. Stomach gets gasy with bloating and distension. Has a BM daily and stool are not hard. Continuing to take a light diet. Taking Lansoprazole, a probiotic and dicyclomine with a little improvement in symptoms. Scheduled for an UGISBFT and unable to do since she was not prepared to stay the entire day. She was told she will be given a sugary drink after barium and she is unable to take high sugar foods since she it makes her pass out. Had a big operation at age 15 yrs - intestines swelled and put pressure on the appendix which ruptured the appendix and it was removed. Stomach does? not feel well after eating - an hour after eating Taking chicken noodle or [employer] soups. Takes cornflakes with half a banana for breakfast Small pancake and an egg white for lunch And soup again for dinner. Starts sweating and feeling sick before she has to have a BM Feels sick and weak after she is done with BM Denies fever, chills or sweating Colonoscopy results reviewed with the patient. Nausea varies from time to time - comes and goes Scheduled a colonoscopy and her 31 year old son got hit by the [employer] bus and had a broken arm. Had to cancel her colonoscopy appt. Continues to have abdominal pain and nausea without significant change in symptoms. Gets hot and sweaty when she goes to the bathroom to have a BM. Has a shooting pain which goes up through the rectum to the stomach. Notes nausea and denies vomiting. Denies feeling dizzy or lightheaded. ? Pt states pains in my stomach, upper right quadrant pain. No irregular bowel movements just pains. Sometimes pain goes over to the left side too. Ran out of the pepcid - she was taking it prn and it helped just a little bit Feels sick to her stomach after she eats. Denies any changes in her weight. Taking soups - even when she takes soups, she feels nauseous after she eats. Stomach starts hurting when she tries to take other foods. Has a BM every other day without any change in abdominal pain. Has lost 5 lbs - weighed 135 lbs on her last visit. pt states i keep getting the pain in my stomach and i keep getting nausea when i eat. I'm still feeling bloated, all the same stuff. mushy Bowel movement. Denies any change in symptoms Stools are mushy and has a BM every day - mostly at night. Appetite is so so - feels nauseous when she eats. Weight is staying the same or a little bit?more PFSH Medical History Allergic rhinitis Anxiety Aortic stenosis Asthma Bicuspid aortic valve Depression Fibromyalgia GERD (gastroesophageal reflux disease) History of tachycardia Hypoglycemia IBS (irritable bowel syndrome) Inappropriate sinus node tachycardia Kidney stones Migraine Mitral and aortic regurgitation Pancytopenia Vertigo Surgical History Hx of tubal ligation History of loop electrical excision procedure (LEEP) Hx of ovarian cystectomy History of eye surgery Hx of dilation and curettage History of left knee surgery History of appendectomy History of esophagogastroduodenoscopy (EGD) Family History Father Larynx cancer Mother CVD (cardiovascular disease) Stroke Maternal Grandmother Ovarian cancer Colon cancer Family/Other History of breast cancer Social History Household Members: Spouse Housing: House Are you a primary geriatric personal care aide to a significant other at home: No Do you presently have visiting nurse or other home services: No Alcohol intake: never Comment: mild cramping Patient Tobacco Use Status: Never used Tobacco service: No Current occupational status: disabled Sexual orientation: Straight/Heterosexual Gender identity: Female Review of Systems Const All systems reviewed & are unremarkable except as noted in HPI and below Physical Exam Vital Signs: Last Vital Signs Pulse 94 04/21/24 11:32 BP 107/68 04/21/24 11:32 BMI result Body Mass Index 26.4 Const General: healthy appearing and no acute distress Nutritional Appearance: average body habitus Orientation/consciousness: patient oriented x3 Limitations: no limitations HEENT Head: Yes normal to inspection Ears: hearing grossly normal bilaterally Eyes Sclerae: sclerae normal Pupils: Equal, round and reactive pupils present Neck Neck: Yes normal visual inspection Chest Chest palpation & inspection: normal inspection of the chest Resp Effort & Inspection: normal respiratory effort Auscultation: clear to auscultation bilaterally Cardio Palpation: normal PMI Rate: regular rate Rhythm: regular rhythm Heart sounds: S1 normal heart sound present, S2 normal heart sound present and no murmurs GI Palpation (GI): Soft to palpation, Tenderness to palpation present (GI) (focal tenderness in epigastrium/right paraumblical area) and No hepatosplenomegaly present Auscultation: normal bowel sounds Rectal Exam - Female: deferred Skin General skin exam: no rashes or lesions noted Neuro General: patient oriented x3, gait normal and moves all extremities Cranial nerves: Yes Equal, round and reactive pupils present Psych Appearance: grossly normal Mental Status: mental status grossly normal Assessment & Plan Assessment & Plan (1) Elevated fecal calprotectin: Code(s): R19.5 - Other fecal abnormalities Category: Medical (2) Adenomatous colon polyp: Comment: 01/2022 medium-sized adenomatous polyp removed from the right colon. Follow-up colonoscopy advised in 3 years (due 01/2025) Code(s): D12.6 - Benign neoplasm of colon, unspecified Category: Medical (3) Abdominal bloating: Code(s): R14.0 - Abdominal distension (gaseous) Category: Medical (4) Nausea: Code(s): R11.0 - Nausea Category: Medical (5) Lactose intolerance: Code(s): E73.9 - Lactose intolerance, unspecified Category: Medical (6) IBS (irritable bowel syndrome): Code(s): K58.9 - Irritable bowel syndrome without diarrhea Category: Medical (7) GERD (gastroesophageal reflux disease): Code(s): K21.9 - Gastro-esophageal reflux disease without esophagitis Category: Medical (8) Abdominal pain: Code(s): R10.9 - Unspecified abdominal pain Category: Medical Plan 54 YF with aortic valve disorder, asthma, fibromyalgia and anxiety followed in GI for GERD and postprandial upper abdominal pain of unclear etiology. Past evaluation with upper endoscopy, abdominal ultrasound and HIDA scan did not reveal a clear etiology for the pain. Patient admits to early satiety and nausea suggesting her symptoms may be due to idiopathic gastroparesis. A gastric emptying study was normal. 03/27/[address] scan showed mild constipation without inflammatory changes in the abdomen. Patient's symptoms are likely due to small intestinal bacterial overgrowth. Patient took metronidazole without any change in her symptoms. Just started a FODMAP diet. Advised to schedule a colonoscopy - she expressed reluctance due to concern abou t complications and pain after the procedure. She agreed to having the colonoscopy after multiple reassurances that procedure is low risk. She was advised a trial of taking MiraLax 3 times a week to see if for abdominal pain will improve by management of constipation - denied any change in symptoms after taking MiraLax. Pt has mild pancytopenia with low platelet count and mildly elevated transamin ases - transaminases have normalized. Patient was advised a trial of dicyclomine p.r.n. for abdominal pain. She was reminded to complete stool tests (to rule out malabsorption) ordered after her clinic visit in September 2020. Stool hemoccults x3 were negative 01/2022 a medium sized adenomatous polyp was removed during colonoscopy. Random biopsies obtained from the right and left colon and rectum were normal. Repeat colon advised in 3 yrs. 09/04/22 Pt was advised to take Miralax daily x 2 weeks to see if her abdominal symptoms improve She will be scheduled for an upper GI with small-bowel follow-through ((of note, pt gives a hx of skin rash after receiving IV contrast for a CT scan in the past) 07/30/23 Complains of intermittent hoarseness Abd pain comes and goes - unable to identify any precipitating factors Continues to have bloating and gas isnt as bad. Takes Miralax prn for constipation. Pt advised to schedule an abd US and increase Lansoprazole to 30 mg twice a day x 3-4 weeks to see if hoarseness improves 12/10/23 Continues to have abdominal pain on and off. Has nausea when she has a BM. Stomach feels off and takes a light diet. Stomach bothers more if she eats something heavy. Pt advised a trail of green tea and Peppermint oil for abdominal pain (Likely non-ulcer dyspepsia) She is planning to complete stool tests in the next few day 01/2024 Fecal Calprotectin elevated at 331 04/21/24 Pt was scheduled for a CTE and had to cancel since her son was in a car accident - broken ribs and concussion. Continues to have abdominal bloating. Notes nausea when she eats and has to stop eating. Start mesalamine for suspected Crohn's disease and reschedule CTE Follow-up in 3 weeks Medications: New mesalamine (Lialda) 2.4 grams (2 x 1.2 gram) PO DAILY 56 tabs 2RF 4 weeks R19.5 - Other fecal abnormalities Coding Level of Care Code Est Pt Level 4 (90351) Diagnoses Elevated fecal calprotectin R19.5 Adenomatous colon polyp D12.6 Abdominal bloating R14.0 Nausea R11.0 Lactose intolerance E73.9 IBS (irritable bowel syndrome) K58.9 GERD (gastroesophageal reflux disease) K21.9 Abdominal pain R10.9 Time Spent (min) 23
[2024-04-21 11:32] VITALS: BP 107/68; PULSE 94; BMI 26.4
== END 2024-04-21 12:26 | disposition home or self-care (01) ==
PROVIDERS: PCP Nurse Practitioner Primary Care; Visit Provider Internal Medicine Gastroenterology
DX: R19.5 Other fecal abnormalities (principal); D12.6 Benign neoplasm of colon, unspecified; R14.0 Abdominal distension (gaseous); R11.0 Nausea; E73.9 Lactose intolerance, unspecified; K58.9 Irritable bowel syndrome, unspecified; K21.9 Gastro-esophageal reflux disease without esophagitis; R10.9 Unspecified abdominal pain
CPT/HCPCS: 99214

== ENCOUNTER → 2024-04-21 11:28 | Outpatient (BNVA) | payer MEDICAID, SELFPAY | PROVIDERS: PCP Nurse Practitioner Primary Care; Visit Provider Internal Medicine Gastroenterology | DX: R14.0 Abdominal distension (gaseous) (principal); K21.9 Gastro-esophageal reflux disease without esophagitis; R10.13 Epigastric pain; R11.0 Nausea; R19.5 Other fecal abnormalities; K58.9 Irritable bowel syndrome, unspecified; D12.6 Benign neoplasm of colon, unspecified; E73.9 Lactose intolerance, unspecified | CPT/HCPCS: 99212 ==

== ENCOUNTER 2024-05-10 14:21 | Outpatient (REF) | payer MEDICAID, SELFPAY ==
--- NOTE | ~2024-05-10 | CT_ITS ---
EXAMINATION: CT ABDOMEN AND PELVIS WITHOUT CONTRAST CLINICAL INFORMATION: Other fecal abnormalities. COMPARISON: Abdominal ultrasound 09/17/2023. CT abdomen and pelvis 03/27/2020. TECHNIQUE: Multidetector volumetric imaging was performed from the superior aspect of the liver through the pubic symphysis. Sagittal and coronal reformatted images were obtained on the technologist's workstation. This CT examination was performed using dose optimization techniques as appropriate, variously including the following: *Automated exposure control *Adjustment of mA and/or kV according to patient size (this includes techniques or standardized protocols for targeted exams where dose is matched to indication/reason for exam; i.e. extremities or head) *Use of iterative reconstruction technique DLP: 424 mGy-cm FINDINGS: LUNG BASES: The visualized lung bases are unremarkable. LIVER, GALLBLADDER, AND BILIARY TREE: The liver is normal in size, shape, and attenuation. No focal hepatic lesion or biliary ductal dilatation is present. The gallbladder is unremarkable with no evidence of radiopaque gallstones, gallbladder wall thickening, or obvious pericholecystic inflammatory changes. PANCREAS: No discrete mass or ductal dilatation. SPLEEN: Unremarkable. ADRENAL GLANDS: Unremarkable. KIDNEYS AND URETERS: 2 mm nonobstructing calculus lower pole right kidney. Otherwise the kidneys appear normal. No hydronephrosis. BLADDER: Unremarkable. GASTROINTESTINAL TRACT: Diffusely dilated lower esophagus without obstructing mass. The small bowel and large bowel are normal in caliber. The appendix is not visualized. There is a moderate volume of dense stool throughout the colon which may indicate a degree of constipation. No visible obstructing mass is seen. ABDOMINAL WALL: No significant hernia is appreciated. LYMPH NODES: No pathologically enlarged lymph nodes. VASCULAR: No aortic aneurysm. PELVIC VISCERA: Unremarkable. OSSEOUS STRUCTURES: No destructive osseous lesions. CT/CT abdomen pelvis wo IV con IMPRESSION: No acute inflammatory changes in the abdomen/pelvis. No evidence of bowel obstruction. Dense stool throughout the colon consistent with a degree of constipation. Correlate clinically. No obstructing mass is seen. Nonobstructing 2 mm calculus lower pole right kidney. Fleischner guidelines were followed. Electronically signed by: Vignesh Reyna MD 05/23/2024 09:12 AM EDT
[2024-05-10] MEDS: Sorbitol/Mannit/Xanth Imaging 500 ML LIQUID 1000 ML PO (15:44)
== END 2024-05-10 14:22 | disposition home or self-care (01) ==
LOC: HO.CT 14:21
PROVIDERS: PCP Nurse Practitioner Primary Care; Visit Provider Internal Medicine Gastroenterology
DX: R10.9 Unspecified abdominal pain (principal); R19.5 Other fecal abnormalities; R14.0 Abdominal distension (gaseous)
CPT/HCPCS: 74176

== ENCOUNTER 2024-05-19 13:27 | Outpatient (AMB) | payer MEDICAID, SELFPAY ==
--- NOTE | 2024-05-19 14:01 | A.OFFVIS_ITS ---
Vital Signs 05/19/24 14:04 Height 5 ft 1 in Weight 140 lb BMI 26.4 BP 95/58 L Blood Pressure Location Lt brachial Position Sitting Pulse 94 Intake Visit Reasons: abd bloating Intake Note: Patient follow up for abdominal bloating Patient cc: abdominal pain/bloating, nauseas, acid reflex with burning sensation, tiredness, not a good appetite also need refill for GERD . 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 Accompanied by: Self / Same As Patient Allergies amitriptyline [AMITRIPTYLINE] Allergy (Unknown, Verified 04/21/24 11:30) ANGER aspirin [ASPIRIN] Allergy (Unknown, Verified 04/21/24 11:30) HIVES AND NAUSEA azithromycin [AZITHROMYCIN] Allergy (Unknown, Verified 04/21/24 11:30) HIVES AND NAUSEA doxycycline Allergy (Unknown, Verified 04/21/24 11:30) Hives, nausea erythromycin base [ERYTHROMYCIN BASE] Allergy (Unknown, Verified 04/21/24 11:30) Nausea and Vomiting fluticasone [From FLOVENT DISKUS] Allergy (Unknown, Verified 04/21/24 11:30) BLISTERS IN MOUTH ibuprofen [IBUPROFEN] Allergy (Unknown, Verified 04/21/24 11:30) HIVES, HEADACHE ifosfamide Allergy (Unknown, Verified 04/21/24 11:30) Unknown loratadine [Claritin] Allergy (Unknown, Verified 04/21/24 11:30) Headache pantoprazole [Protonix] Allergy (Unknown, Verified 04/21/24 11:30) Nausea and Vomiting Sulfa (Sulfonamide Antibiotics) Allergy (Unknown, Verified 04/21/24 11:30) Hives and Nausea sulfamethoxazole [From BACTRIM] Allergy (Unknown, Verified 04/21/24 11:30) HIVES AND NAUSEA trimethoprim [From BACTRIM] Allergy (Unknown, Verified 04/21/24 11:30) HIVES AND NAUSEA zafirlukast [From ACCOLATE] Allergy (Unknown, Verified 04/21/24 11:30) HIVES AND NAUSEA cephalexin Allergy (Unknown, Uncoded 01/29/24 12:59) Unknown ethylsuccinate Allergy (Unknown, Uncoded 01/29/24 12:59) Unknown Fluoxetine Allergy (Unknown, Uncoded 01/29/24 12:59) Unknown fluticasone Allergy (Unknown, Uncoded 01/29/24 12:59) Unknown Folastin Allergy (Unknown, Uncoded 01/29/24 12:59) Unknown FOLEX Allergy (Unknown, Uncoded 01/29/24 12:59) HIVES AND NAUSEA furoate Allergy (Unknown, Uncoded 01/29/24 12:59) Unknown mometasone Allergy (Unknown, Uncoded 01/29/24 12:59) Unknown ofloxacin Allergy (Unknown, Uncoded 01/29/24 12:59) Unknown omeprazole Allergy (Unknown, Uncoded 01/29/24 12:59) Unknown penicillins Allergy (Unknown, Uncoded 01/29/24 12:59) Hives propionate Allergy (Unknown, Uncoded 01/29/24 12:59) Unknown Symbicort Allergy (Unknown, Uncoded 01/29/24 12:59) Unknown Medication List - Last Reconciled 05/19/24 by Henrietta Wilkinson MD acetaminophen 500 mg PO Q6H PRN albuterol sulfate 90 mcg/actuation (Proventil HFA) 1 puff inhalation QID PRN cetirizine 10 mg PO QAM cholecalciferol (vitamin D3) (Vitamin D3) 50 mcg PO DAILY dicyclomine 20 mg PO TID PRN 30 days Lactobacillus acidophilus (Probiotic) 10,000 mmu cells PO DAILY lansoprazole 30 mg PO BID 90 days lorazepam (Ativan) 0.5 mg PO BID PRN meclizine 25 mg PO DAILY PRN nortriptyline 100 mg PO BEDTIME polyethylene glycol 3350 (Miralax) 17 grams PO DAILY 15 days propranolol 20 mg PO BID HPI HPI abd bloating: Details: GI CLINIC VISIT FOR THIS 54-YEAR-OLD FEMALE FOR FOLLOW-UP OF GERD AND EPIGASTRIC PAIN. ? LABS IN [facility]: 03/21/20 NORMAL CBC, PLATELET COUNT 156, NORMAL CHEM PANEL WITH MINIMAL INCREASE IN AST AND ALT, ALBUMIN 4.3 (PATIENT HAD INTERMITTENT ELEVATION OF LFTS IN THE PAST). ? 01/10 NADIA SCREEN WAS NEGATIVE, CELIAC AND IBD SEROLOGIES WERE NORMAL ? 08/10 INR 1.1, ?IMAGING STUDIES: 05/10/[address] SHOWED: No acute inflammatory changes in the abdomen/pelvis. No evidence of bowel obstruction. Dense stool throughout the colon consistent with a degree of constipation. Correlate clinically. No obstructing mass is seen. Nonobstructing 2 mm calculus lower pole right kidney.09/17/23 ABD US SHOWED: 1. 0.4 cm nonobstructing calculus in the mid to lower pole of the right kidney. 2. Question of 1.0 cm simple exophytic cyst off the superior aspect of the spleen. 12/24/20 ABDOMINAL ULTRASOUND SHOWED:? LIVER: The liver is normal in size. The liver contour is normal. There ? is a slight increased liver echogenicity. No focal hepatic lesion. ? There is no intrahepatic biliary duct dilatation seen. 03/27/[address] SCAN SHOWED:? 3 bilateral nonobstructive radiopaque calculi lower pole calyx right kidney.? There is no hydroureter or nephrosis. ? Mild constipation. Appendix is not visualized with certainty. No inflammatory process seen in the abdomen. ?03/04/20 GASTRIC EMPTYING STUDY WAS NORMAL: ? Retention in the stomach at each time interval was: ? 1 hour 57% (normal 37%-90%) ? 2 hours 4% (normal 30%-60%) ? 3 hours 2% ? 4 hours (Not Obtained) (normal 0%-10%) ?09/15 A HIDA SCAN WAS NORMAL. ?ENDOSCOPIC PROCEDURES: 01/2022 COLONOSCOPY SHOWED: Colonoscopy Findings: One medium sized adenomatous polyp removed. Random biopsies were obtained from the right and left colon and rectum - normal Moderate diverticulosis seen in the sigmoid colon Plan:? Repeat Colonoscopy interval based on path results - in 3 years if polyps are adenomatous and 10 years if polyps are hyperplastic. (Adult colonoscope for future colonoscopies) 09/2019 [address]GD [address] KIRK:? Endoscopy Findings:? esophagitis, mild gastritis ? Plan: ? Await pathology results ? Might benefit from trial of PPI if not taking ? if path neg and ongoing sx then gES to rule out gastroparesis ?BIOPSIES SHOWED: ? A. Duodenum, biopsies: Duodenal mucosa with no significant histopathology; no villous ? abnormality identified; no increase in intraepithelial lymphocytes. ? B. Stomach, biopsies: Gastric mucosa with mild chronic, inactive ga stritis; negative ? for Helicobacter pylori organisms; negative for intestinal metaplasia; negative for dysplasia. ? C. Stomach, polyp, biopsy: Fundic gland polyp with background mild chron ic inactive ? inflammation; no Helicobacter organisms seen. ? D. GE junction, biopsies: Gastroesophageal junctional mucosa with mild to moderate ? chronic inflammation and squamous epithelium with reactive features suggestive of reflux ? disease; negative for intestinal metaplasia; negative for dysplasia. ? ??TODAY'S VISIT Patient cc: abdominal pain/bloating, nauseas, acid reflex with burning sensation, tiredness, not a good appetite also need refill for GERD . Pt unable to obtain mesalamine from the pharmacy due to aspirin allergy Continues to have abdominal bloating and nausea Pt was scheduled for a CTE and had to cancel since her son was in a car accident - broken ribs and concussion. Continues to have abdominal bloating. Notes nausea when she eats and has to stop eating. Hoarseness is less frequent. Continues to have abdominal pain on and off. Has nausea when she has a BM. Stomach feels off and takes a light diet. Stomach bothers more if she eats something heavy. Has a BM once to twice a day or every other day. PAST VISIT: Patient cc: abdominal bloating, acid reflex on and off, and poor appetite, rosalva es any other GI issues. Complains of intermittent hoarseness Has mold in the apartment and the carpet and its is being changed. Had a single episode of acid reflux in the past. Abd pain comes and goes - unable to identify any precipitating factors Continues to have bloating and gas isnt as bad. Takes Miralax prn for constipation. Nausea is intermittent. ?Abdominal pain and nausea is about the same. Stomach gets gasy with bloating and distension. Has a BM daily and stool are not hard. Continuing to take a light diet. Taking Lansoprazole, a probiotic and dicyclomine with a little improvement in symptoms. Scheduled for an UGISBFT and unable to do since she was not prepared to stay the entire day. She was told she will be given a sugary drink after barium and she is unable to take high sugar foods since she it makes her pass out. Had a big operation at age 15 yrs - intestines swelled and put pressure on the appendix which ruptured the appendix and it was removed. Stomach does? not feel well after eating - an hour after eating Taking chicken noodle or [employer] soups. Takes cornflakes with half a banana for breakfast Small pancake and an egg white for lunch And soup again for dinner. Starts sweating and feeling sick before she has to have a BM Feels sick and weak after she is done with BM Denies fever, chills or sweating Colonoscopy results reviewed with the patient. Nausea varies from time to time - comes and goes Scheduled a colonoscopy and her 31 year old son got hit by the [employer] bus and had a broken arm. Had to cancel her colonoscopy appt. Continues to have abdominal pain and nausea without significant change in symptoms. Gets hot and sweaty when she goes to the bathroom to have a BM. Has a shooting pain which goes up through the rectum to the stomach. Notes nausea and denies vomiting. Denies feeling dizzy or lightheaded. ? Pt states pains in my stomach, upper right quadrant pain. No irregular bowel movements just pains. Sometimes pain goes over to the left side too. Ran out of the pepcid - she was taking it prn and it helped just a little bit Feels sick to her stomach after she eats. Denies any changes in her weight. Taking soups - even when she takes soups, she feels nauseous after she eats. Stomach starts hurting when she tries to take other foods. Has a BM every other day without any change in abdominal pain. Has lost 5 lbs - weighed 135 lbs on her last visit. pt states i keep getting the pain in my stomach and i keep getting nausea when i eat. I'm still feeling bloated, all the same stuff. mushy Bowel movement. Denies any change in symptoms Stools are mushy and has a BM every day - mostly at night. Appetite is so so - feels nauseous when she eats. Weight is staying the same or a little bit?more [facility] Medical History Allergic rhinitis Anxiety Aortic stenosis Asthma Bicuspid aortic valve Depression Fibromyalgia GERD (gastroesophageal reflux disease) History of tachycardia Hypoglycemia IBS (irritable bowel syndrome) Inappropriate sinus node tachycardia Kidney stones Migraine Mitral and aortic regurgitation Pancytopenia Vertigo Surgical History Hx of tubal ligation History of loop electrical excision procedure (LEEP) Hx of ovarian cystectomy History of eye surgery Hx of dilation and curettage History of left knee surgery History of appendectomy History of esophagogastroduodenoscopy (EGD) Family History Father Larynx cancer Mother CVD (cardiovascular disease) Stroke Maternal Grandmother Ovarian cancer Colon cancer Family/Other History of breast cancer Social History Household Members: Spouse Housing: House Are you a primary senior care provider to a significant other at home: No Do you presently have visiting nurse or other home services: No Alcohol intake: never Comment: mild cramping Patient Tobacco Use Status: Never used Tobacco service: No Current occupational status: disabled Sexual orientation: Straight/Heterosexual Gender identity: Female Review of Systems Const All systems reviewed & are unremarkable except as noted in HPI and below Physical Exam Vital Signs: Last Vital Signs Pulse 94 05/19/24 14:04 BP 95/58 L 05/19/24 14:04 BMI result Body Mass Index 26.4 Const General: healthy appearing and no acute distress Nutritional Appearance: average body habitus Orientation/consciousness: patient oriented x3 Limitations: no limitations HEENT Head: Yes normal to inspection Ears: hearing grossly normal bilaterally Eyes Sclerae: sclerae normal Pupils: Equal, round and reactive pupils present Neck Neck: Yes normal visual inspection Chest Chest palpation & inspection: normal inspection of the chest Resp Effort & Inspection: normal respiratory effort Auscultation: clear to auscultation bilaterally Cardio Palpation: normal PMI Rate: regular rate Rhythm: regular rhythm Heart sounds: S1 normal heart sound present, S2 normal heart sound present and no murmurs GI Palpation (GI): Soft to palpation, Tenderness to palpation present (GI) (focal tenderness in epigastrium/right paraumblical area) and No hepatosplenomegaly present Auscultation: normal bowel sounds Rectal Exam - Female: deferred Skin General skin exam: no rashes or lesions noted Neuro General: patient oriented x3, gait normal and moves all extremities Cranial nerves: Yes Equal, round and reactive pupils present Psych Appearance: grossly normal Mental Status: mental status grossly normal Assessment & Plan Assessment & Plan (1) GERD (gastroesophageal reflux disease): Code(s): K21.9 - Gastro-esophageal reflux disease without esophagitis Category: Medical (2) IBS (irritable bowel syndrome): Code(s): K58.9 - Irritable bowel syndrome without diarrhea Category: Medical (3) Abdominal bloating: Code(s): R14.0 - Abdominal distension (gaseous) Category: Medical (4) Nausea: Code(s): R11.0 - Nausea Category: Medical (5) Lactose intolerance: Code(s): E73.9 - Lactose intolerance, unspecified Category: Medical (6) Adenomatous colon polyp: Comment: 01/2022 medium-sized adenomatous polyp removed from the right colon. Follow-up colonoscopy advised in 3 years (due 01/2025) Code(s): D12.6 - Benign neoplasm of colon, unspecified Category: Medical (7) Elevated fecal calprotectin: Code(s): R19.5 - Other fecal abnormalities Category: Medical (8) Chronic constipation: Code(s): K59.09 - Other constipation Category: Medical Plan 54 YF with aortic valve disorder, asthma, fibromyalgia and anxiety followed in GI for GERD and postprandial upper abdominal pain of unclear etiology. Past evaluation with upper endoscopy, abdominal ultrasound and HIDA scan did not reveal a clear etiology for the pain. Patient admits to early satiety and nausea suggesting her symptoms may be due to idiopathic gastroparesis. A gastric emptying study was normal. 03/27/[address] scan showed mild constipation without inflammatory changes in the abdomen. Patient's symptoms are likely due to small intestinal bacterial overgrowth. Patient took metronidazole without any change in her symptoms. Just started a FODMAP diet. Advised to schedule a colonoscopy - she expressed reluctance due to concern about complications and pain after the procedure. She agreed to having the colonoscopy after multiple reassurances that procedure is low risk. She was advised a trial of taking MiraLax 3 times a week to see if for abdominal pain will improve by management of constipation - denied any change in symptoms after taking MiraLax. Pt has mild pancytopenia with low platelet count and mildly elevated transaminases - transaminases have normalized. Patient was advised a trial of dicyclomine p.r.n. for abdominal pain. She was reminded to complete stool tests (to rule out malabsorption) ordered after her clinic visit in September 2020. Stool hemoccults x3 were negative 01/2022 a medium sized adenomatous polyp was removed during colonoscopy. Random biopsies obtained from the right and left colon and rectum were normal. Repeat colon advised in 3 yrs. 09/04/22 Pt was advised to take Miralax daily x 2 weeks to see if her abdominal symptoms improve She will be scheduled for an upper GI with small-bowel follow-through ((of note, pt gives a hx of skin rash after receiving IV contrast for a CT scan in the past) 07/30/23 Complains of intermittent hoarseness Abd pain comes and goes - unable to identify any precipitating factors Continues to have bloating and gas isnt as bad. Takes Miralax prn for constipation. Pt advised to schedule an abd US and increase Lansoprazole to 30 mg twice a day x 3-4 weeks to see if hoarseness improves 12/10/23 Continues to have abdominal pain on and off. Has nausea when she has a BM. Stomach feels off and takes a light diet. Stomach bothers more if she eats something heavy. Pt advised a trail of green tea and Peppermint oil for abdominal pain (Likely non-ulcer dyspepsia) She is planning to complete stool tests in the next few day 01/2024 Fecal Calprotectin elevated at 331 Pt unable to take mesalamine due to aspirin allergy 05/25/[address] SCAN SHOWED: No acute inflammatory changes in the abdomen/pelvis. No evidence of bowel obstruction. Dense stool throughout the colon consistent with a degree of constipation. Correlate clinically. No obstructing mass is seen. Nonobstructing 2 mm calculus lower pole right kidney. CT results were reviewed with the pt. She was advised to start Linzess 145 mcg daily FU in 3 months - has an appt on 08/11/24 Colonoscopy scheduled on 11/07/23 Medications: New linaclotide (Linzess) 145 mcg PO QAM 30 days 30 caps 3RF K59.09 - Other constipation Refilled lansoprazole 30 mg PO BID 90 days 180 caps 1RF K21.9 - Gastro-esophageal reflux disease without esophagitis, R49.0 - Dysphonia Discontinued polyethylene glycol 3350 Discontinued Reason: Patient Completed Course 17 grams PO DAILY 15 days 255 grams 1RF K59.09 - Other constipation Coding Level of Care Code Est Pt Level 4 (94732) Diagnoses GERD (gastroesophageal reflux disease) K21.9 IBS (irritable bowel syndrome) K58.9 Abdominal bloating R14.0 Nausea R11.0 Lactose intolerance E73.9 Adenomatous colon polyp D12.6 Elevated fecal calprotectin R19.5 Chronic constipation K59.09 Time Spent (min) 24
[2024-05-19 14:04] VITALS: BP 95/58; PULSE 94; BMI 26.4
== END 2024-05-19 17:59 | disposition home or self-care (01) ==
PROVIDERS: PCP Nurse Practitioner Primary Care; Visit Provider Internal Medicine Gastroenterology
DX: K21.9 Gastro-esophageal reflux disease without esophagitis (principal); K58.9 Irritable bowel syndrome, unspecified; R14.0 Abdominal distension (gaseous); R11.0 Nausea; E73.9 Lactose intolerance, unspecified; D12.6 Benign neoplasm of colon, unspecified; R19.5 Other fecal abnormalities; K59.09 Other constipation
CPT/HCPCS: 99214

== ENCOUNTER → 2024-05-19 13:27 | Outpatient (BNVA) | payer MEDICAID, SELFPAY | PROVIDERS: PCP Nurse Practitioner Primary Care; Visit Provider Internal Medicine Gastroenterology | DX: K21.9 Gastro-esophageal reflux disease without esophagitis (principal); K58.9 Irritable bowel syndrome, unspecified; K59.09 Other constipation; R14.0 Abdominal distension (gaseous); R11.0 Nausea; D12.6 Benign neoplasm of colon, unspecified; R19.5 Other fecal abnormalities | CPT/HCPCS: 99212 ==

== ENCOUNTER → 2024-06-20 12:23 | Outpatient (REF) | payer MEDICAID, SELFPAY ==
--- NOTE | 2024-06-20 12:26 | CA_ITS ---
Transthoracic Echocardiogram Patient (Last, First, Middle): Jesi Mena, Gender: Female Date of : 1970 Age: 54 Procedure Date: 06/20/2024 Procedure Type: Transthoracic Echocardiogram Location: OP Height: 154.94 cm Weight: 63.5 kg BSA: 1.62 m2 Heart Rate: 87 bpm BP: 110 / 70 mmHg Senior Facilities Manager: SB Referring MD: Timoteo Blanton MD Symptoms: Q23.1 - Congenital insufficiency of aortic valve Study Quality: Adequate ECG Rhythm: Sinus Conclusions: - The left ventricular systolic function is mildly decreased. The calculated ejection fraction is 51% by biplane method. - The inferoseptal wall, the basal inferior, and basal inferolateral segments are hypokinetic. - There is a bicuspid aortic valve. There is mild aortic valve stenosis. There is no aortic valve regurgitation. Findings Left Ventricle Normal left ventricular cavity size. The left ventricular systolic function is mildly decreased. The calculated ejection fraction is 51% by biplane method. There is no evidence of regional wall motion abnormalities. Diastolic function is normal for age. There is mild septal and mild basal asymmetric hypertrophy. Wall Motion Rest Echo Findings The inferoseptal wall, the basal inferior, and basal inferolateral segments are hypokinetic. Atria Both atria are normal in size. Aortic Valve There is a bicuspid aortic valve. There is mild aortic valve stenosis. There is no aortic valve regurgitation. Mitral Valve The mitral valve appears normal. There is no mitral valve regurgitation. There is no mitral valve stenosis. Pulmonic Valve The pulmonic valve is likely normal. Tricuspid Valve There is trace tricuspid valve regurgitation. There is no evidence of pulmonary hypertension. Great Vessels The asc aorta and aortic arch are normal in size. Venous The inferior vena cava is normal in size and collapses greater than 50% with inspiration. Pericardium/Pleural There is no evidence of pericardial effusion. Prior Study Comparison Changes noted compared to prior study dated: 09/16/2021. see comment on wall motion. Measurements 2D Linear Measurements IVSd: 0.53 0.6-0.9/0.6-1.0 cm LVIDd: 4.07 3.9-5.3/4.2-5.9 cm LVIDd Index: 2.51 2.4-3.2/2.2-3.1 cm/m2 LVIDs: 2.95 2.0-3.6 cm LVPWd: 0.58 0.7-1.1 cm LA Diam: 2.70 2.7-3.8/3.0-4.0 cm LAIDs Index: 1.67 1.5-2.3 cm/m2 LV Mass: 74.85 67-162/88-224 g LV Mass Index: 46.21 43-95/49-115 g/m2 LVOT Diam: 2.10 3.0+(-)1.3 cm 2D Systolic Function EF 4C: 49.20 >55% EF 2C: 51.80 >55% EF BiP: 50.80 >55% Mitral Valve MV Pk E: 0.59 MV PK A: 0.68 MV Decel Time: 156.00 E/A: 0.90 E'Lateral: 7.94 E'Medial: 5.66 E/E' Med: 10.40 E/E' Lat: 7.40 PHT: 46.00 MVA PHT: 4.78 Decel Dodge: 3.79 Aortic Valve AoV Pk Rene: 2.16 AoV Mn Rene: 1.58 AoV VTI: 0.45 AoV Pk Grad: 19.00 Aov Mn Grad: 11.00 ANISA Cont.VTI: 1.28 LVOT LVOT Pk Rene: 0.86 LVOT Mn Rene: 0.60 LVOT VTI: 0.17 LVOT Pk Grad: 3.00 LVOT Mn Grad: 2.00 LVOT Diam: 2.10 LVOT Area: 3.46 Diastolic Function MV Pk E: 0.59 MV Pk A: 0.68 E/A: 0.90 E'Medial: 5.66 E/E' Med: 10.40 E' Laterial: 7.94 E/E' Lat: 7.40 Right Ventricle TAPSE (mm): 18.30 TVS' Rene: 9.25 Tricuspid Valve TR Pk Rene: 2.01 TR Pk Grad: 16.00 RA Press: 3.00 Great Vessels Aorta Sinus of Valsalva: 3.00 2.0-3.5 cm Ao Asc: 3.00 2.1-3.4 cm Ao Arch: 2.40 Ao Desc: 0.90 Pulmonary Valve PV Pk Rene: 0.62 Peak PV Grad: 2.00 Updated in Other Vendor System with Status of Final Fran Merritt MD electronically signed on 06/21/2024 4:01:08 PM with status of Final
== END ==
LOC: HO.CARD 12:23
PROVIDERS: PCP Nurse Practitioner Primary Care; Visit Provider Internal Medicine Cardiovascular Disease
DX: Q23.1 Congenital insufficiency of aortic valve (principal)
CPT/HCPCS: 93306

== ENCOUNTER → 2024-06-20 12:26 | Outpatient (BNV) | payer MEDICAID, SELFPAY | PROVIDERS: PCP Nurse Practitioner Primary Care; Visit Provider Internal Medicine | DX: Q23.1 Congenital insufficiency of aortic valve (principal); Q23.0 Congenital stenosis of aortic valve; I42.2 Other hypertrophic cardiomyopathy | CPT/HCPCS: 93303; 93320; 93325 ==

== ENCOUNTER 2024-08-11 12:24 | Outpatient (AMB) | payer MEDICAID, SELFPAY ==
[2024-08-11 12:39] VITALS: BP 102/66; PULSE 96; O2SAT 97; BMI 27.2
--- NOTE | 2024-08-11 12:39 | A.OFFVIS_ITS ---
Vital Signs 08/11/24 12:39 Height 5 ft 1 in Weight 144 lb 2.917 oz BMI 27.2 BP 102/66 Blood Pressure Location Lt brachial Position Sitting Pulse 96 Pulse Source Pulse Oximeter Pulse Oximetry (%) 97 Oxygen Delivery Method Room Air Intake Visit Reasons: bloating Intake Note: PRESCRIPTIONS LAST GENERATED lansoprazole 30 mg capsule,delayed release?30 mg PO BID 180 caps 1RF 90 days MinhElvaafia 05/19/24 14:26 (Transmitted) linaclotide 145 mcg capsule?(Linzess)?145 mcg PO QAM 30 caps 3RF 30 days Minh,Elvaeela 05/25/24 13:59 (Transmitted) Pt has not yet started the linzess as they have been concerned about possible reaction and would like to ensure that they have a window of time where they will be in a better environment to take it. Relevant Flags or Indicators ? Requires Information Technology Assistant? Miranda Dennison presents in office today for a scheduled 3 mos FUV. CC; No recent labs, diagnostics Relevant GI Sx as reported per pt? Nausea ? Reflux - Pt still taking lansoprazole as instructed. Pt does report having hoarseness in their voice often. ? Abdominal Pain o?? Generalized, but tends to favor the RUQ more often. ? Early satiety ? Bloating ? Abdominal distention ? Hx of any recent surgeries? None Information Technology Assistant Required: No Allergies amitriptyline (AMITRIPTYLINE) Allergy (Unknown, Verified 08/11/24 12:41) ANGER aspirin (ASPIRIN) Allergy (Unknown, Verified 08/11/24 12:41) HIVES AND NAUSEA azithromycin (AZITHROMYCIN) Allergy (Unknown, Verified 08/11/24 12:41) HIVES AND NAUSEA doxycycline Allergy (Unknown, Verified 08/11/24 12:41) Hives, nausea erythromycin base (ERYTHROMYCIN BASE) Allergy (Unknown, Verified 08/11/24 12:41) Nausea and Vomiting fluticasone (From FLOVENT DISKUS) Allergy (Unknown, Verified 08/11/24 12:41) BLISTERS IN MOUTH ibuprofen (IBUPROFEN) Allergy (Unknown, Verified 08/11/24 12:41) HIVES, HEADACHE ifosfamide Allergy (Unknown, Verified 08/11/24 12:41) Unknown loratadine (Claritin) Allergy (Unknown, Verified 08/11/24 12:41) Headache pantoprazole (Protonix) Allergy (Unknown, Verified 08/11/24 12:41) Nausea and Vomiting Sulfa (Sulfonamide Antibiotics) Allergy (Unknown, Verified 08/11/24 12:41) Hives and Nausea sulfamethoxazole (From BACTRIM) Allergy (Unknown, Verified 08/11/24 12:41) HIVES AND NAUSEA trimethoprim (From BACTRIM) Allergy (Unknown, Verified 08/11/24 12:41) HIVES AND NAUSEA zafirlukast (From ACCOLATE) Allergy (Unknown, Verified 08/11/24 12:41) HIVES AND NAUSEA cephalexin Allergy (Unknown, Uncoded 01/29/24 12:59) Unknown ethylsuccinate Allergy (Unknown, Uncoded 01/29/24 12:59) Unknown Fluoxetine Allergy (Unknown, Uncoded 01/29/24 12:59) Unknown fluticasone Allergy (Unknown, Uncoded 01/29/24 12:59) Unknown Folastin Allergy (Unknown, Uncoded 01/29/24 12:59) Unknown FOLEX Allergy (Unknown, Uncoded 01/29/24 12:59) HIVES AND NAUSEA furoate Allergy (Unknown, Uncoded 01/29/24 12:59) Unknown mometasone Allergy (Unknown, Uncoded 01/29/24 12:59) Unknown ofloxacin Allergy (Unknown, Uncoded 01/29/24 12:59) Unknown omeprazole Allergy (Unknown, Uncoded 01/29/24 12:59) Unknown penicillins Allergy (Unknown, Uncoded 01/29/24 12:59) Hives propionate Allergy (Unknown, Uncoded 01/29/24 12:59) Unknown Symbicort Allergy (Unknown, Uncoded 01/29/24 12:59) Unknown Medication List - Last Reconciled 08/11/24 by Henrietta Wilkinson MD acetaminophen 500 mg PO Q6H PRN albuterol sulfate 90 mcg/actuation (Proventil HFA) 1 puff inhalation QID PRN cetirizine 10 mg PO QAM cholecalciferol (vitamin D3) (Vitamin D3) 50 mcg PO DAILY dicyclomine 20 mg PO TID PRN 30 days Lactobacillus acidophilus (Probiotic) 10,000 mmu cells PO DAILY lansoprazole 30 mg PO BID 90 days linaclotide (Linzess) 145 mcg PO QAM 30 days lorazepam (Ativan) 0.5 mg PO BID PRN meclizine 25 mg PO DAILY PRN nortriptyline 100 mg PO BEDTIME propranolol 20 mg PO BID HPI HPI bloating: Details: GI CLINIC VISIT FOR THIS 54-YEAR-OLD FEMALE FOR FOLLOW-UP OF GERD AND EPIGASTRIC PAIN. ? ??TODAY'S VISIT Pt has not yet started the linzess as they have been concerned about possible reaction and would like to ensure that they have a window of time where they will be in a better environment to take it. No recent labs, diagnostics Relevant GI Sx as reported per pt? Nausea Reflux - Pt still taking lansoprazole as instructed. Pt does report having hoarseness in their voice often. Abdominal Pain - Generalized, but tends to favor the RUQ more often, Early satiety, Bloating, Abdominal distention Patient reports abdominal pain/bloating, nauseas, acid reflex with burning sensation, tiredness, not a good appetite also need refill for GERD . Planning to start taking Linzess this weekend. Has a soft BM every day. Feels pressure and there is nothing there Can have burning periumblical pain. Unable to eat sometimes and only takes soups. Dicyclomine helps and she ran out of the medication - refill sent PAST VISITS: Pt unable to obtain mesalamine from the pharmacy due to aspirin allergy Continues to have abdominal bloating and nausea Pt was scheduled for a CTE and had to cancel since her son was in a car accident - broken ribs and concussion. Continues to have abdominal bloating. Notes nausea when she eats and has to stop eating. Hoarseness is less frequent. Continues to have abdominal pain on and off. Has nausea when she has a BM. Stomach feels off and takes a light diet. Stomach bothers more if she eats something heavy. Has a BM once to twice a day or every other day. PAST VISIT: Patient cc: abdominal bloating, acid reflex on and off, and poor appetite, denies any other GI issues. Complains of intermittent hoarseness Has mold in the apartment and the carpet and its is being changed. Had a single episode of acid reflux in the past. Abd pain comes and goes - unable to identify any precipitating factors Continues to have bloating and gas isnt as bad. Takes Miralax prn for constipation. Nausea is intermittent. ?Abdominal pain and nausea is about the same. Stomach gets gasy with bloating and distension. Has a BM daily and stool are not hard. Continuing to take a light diet. Taking Lansoprazole, a probiotic and dicyclomine with a little improvement in symptoms. Scheduled for an UGISBFT and unable to do since she was not prepared to stay the entire day. She was told she will be given a sugary drink after barium and she is unable to take high sugar foods since she it makes her pass out. Had a big operation at age 15 yrs - intestines swelled and put pressure on the appendix which ruptured the appendix and it was removed. Stomach does? not feel well after eating - an hour after eating Taking chicken noodle or [employer] soups. Takes cornflakes with half a banana for breakfast Small pancake and an egg white for lunch And soup again for dinner. Starts sweating and feeling sick before she has to have a BM Feels sick and weak after she is done with BM Denies fever, chills or sweating Colonoscopy results reviewed with the patient. Nausea varies from time to time - comes and goes Scheduled a colonoscopy and her 31 year old son got hit by the [place] bus and had a broken arm. Had to cancel her colonoscopy appt. Continues to have abdominal pain and nausea without significant change in symptoms. Gets hot and sweaty when she goes to the bathroom to have a BM. Has a shooting pain which goes up through the rectum to the stomach. Notes nausea and denies vomiting. Denies feeling dizzy or lightheaded. ? Pt states pains in my stomach, upper right quadrant pain. No irregular bowel movements just pains. Sometimes pain goes over to the left side too. Ran out of the pepcid - she was taking it prn and it helped just a little bit Feels sick to her stomach after she eats. Denies any changes in her weight. Taking soups - even when she takes soups, she feels nauseous after she eats. Stomach starts hurting when she tries to take other foods. Has a BM every other day without any change in abdominal pain. Has lost 5 lbs - weighed 135 lbs on her last visit. pt states i keep getting the pain in my stomach and i keep getting nausea when i eat. I'm still feeling bloated, all the same stuff. mushy Bowel movement. Denies any change in symptoms Stools are mushy and has a BM every day - mostly at night. Appetite is so so - feels nauseous when she eats. Weight is staying the same or a little bit?more LABS IN [facility]: 03/21/20 NORMAL CBC, PLATELET COUNT 156, NORMAL CHEM PANEL WITH MINIMAL INCREASE IN AST AND ALT, ALBUMIN 4.3 (PATIENT HAD INTERMITTENT ELEVATION OF LFTS IN THE PAST). ? 01/10 NADIA SCREEN WAS NEGATIVE, CELIAC AND IBD SEROLOGIES WERE NORMAL ? 08/10 INR 1.1, ?IMAGING STUDIES: 05/10/[address] SHOWED: No acute inflammatory changes in the abdomen/pelvis. No evidence of bowel obstruction. Dense stool throughout the colon consistent with a degree of constipation. Correlate clinically. No obstructing mass is seen. Nonobstructing 2 mm calculus lower pole right kidney.09/17/23 ABD US SHOWED: 1. 0.4 cm nonobstructing calculus in the mid to lower pole of the right kidney. 2. Question of 1.0 cm simple exophytic cyst off the superior aspect of the spleen. 12/24/20 ABDOMINAL ULTRASOUND SHOWED:? LIVER: The liver is normal in size. The liver contour is normal. There ? is a slight increased liver echogenicity. No focal hepatic lesion. ? There is no intrahepatic biliary duct dilatation seen. 03/27/[address] SCAN SHOWED:? 3 bilateral nonobstructive radiopaque calculi lower pole calyx right kidney.? There is no hydroureter or nephrosis. ? Mild constipation. Appendix is not visualized with certainty. No inflammatory process seen in the abdomen. ?03/04/20 GASTRIC EMPTYING STUDY WAS NORMAL: ? Retention in the stomach at each time interval was: ? 1 hour 57% (normal 37%-90%) ? 2 hours 4% (normal 30%-60%) ? 3 hours 2% ? 4 hours (Not Obtained) (normal 0%-10%) ?09/15 A HIDA SCAN WAS NORMAL. ENDOSCOPIC PROCEDURES: 01/2022 COLONOSCOPY SHOWED: Colonoscopy Findings: One medium sized adenomatous polyp removed. Random biopsies were obtained from the right and left colon and rectum - normal Moderate diverticulosis seen in the sigmoid colon Plan:? Repeat Colonoscopy interval based on path results - in 3 years if polyps are adenomatous and 10 years if polyps are hyperplastic. (Adult colonoscope for future colonoscopies) 09/2019 [address]GD [address] KIRK:? Endoscopy Findings:? esophagitis, mild gastritis ? Plan: ? Await pathology results ? Might benefit from trial of PPI if not taking ? if path neg and ongoing sx then gES to rule out gastroparesis ?BIOPSIES SHOWED: ? A. Duodenum, biopsies: Duodenal mucosa with no significant histopathology; no villous ? abnormality identified; no increase in intraepithelial lymphocytes. ? B. Stomach, biopsies: Gastric mucosa with mild chronic, inactive gastritis; negative ? for Helicobacter pylori organisms; negative for intestinal metaplasia; negative for dysplasia. ? C. Stomach, polyp, biopsy: Fundic gland polyp with background mild chronic inactive ? inflammation; no Helicobacter organisms seen. ? D. GE junction, biopsies: Gastroesophageal junctional mucosa with mild to moderate ? chronic inflammation and squamous epithelium with reactive features suggestive of reflux ? disease; negative for intestinal metaplasia; negative for dysplasia. [facility] Medical History (Updated 08/18/25 @ 10:38 by Nilda Woodall [facility]) Abnormal finding on echocardiogram Anxiety disorder Fasting hyperglycemia Vertigo Pancytopenia Hypoglycemia History of tachycardia Allergic rhinitis Kidney stones Asthma Depression Anxiety Mitral and aortic regurgitation Surgical History Hx of tubal ligation History of loop electrical excision procedure (LEEP) Hx of ovarian cystectomy History of eye surgery Hx of dilation and curettage History of left knee surgery History of appendectomy History of esophagogastroduodenoscopy (EGD) Family History Father Larynx cancer Mother CVD (cardiovascular disease) Stroke Maternal Grandmother Ovarian cancer Colon cancer Family/Other History of breast cancer Social History Household Members: Spouse Housing: House Are you a primary childcare director to a significant other at home: No Do you presently have visiting nurse or other home services: No Alcohol intake: never Comment: mild cramping Patient Tobacco Use Status: Never used Tobacco service: No Current occupational status: disabled Sexual orientation: Straight/Heterosexual Gender identity: Female Review of Systems Const All systems reviewed & are unremarkable except as noted in HPI and below Physical Exam Vital Signs: Last Vital Signs Pulse 96 08/11/24 12:39 BP 102/66 08/11/24 12:39 Pulse Ox 97 08/11/24 12:39 Oxygen Delivery Method Room Air 08/11/24 12:39 BMI result Body Mass Index 27.2 Const General: healthy appearing and no acute distress Nutritional Appearance: overweight Orientation/consciousness: patient oriented x3 Limitations: no limitations HEENT Head: Yes normal to inspection Ears: hearing grossly normal bilaterally Eyes Sclerae: sclerae normal Pupils: Equal, round and reactive pupils present Neck Neck: Yes normal visual inspection Chest Chest palpation & inspection: normal inspection of the chest Resp Effort & Inspection: normal respiratory effort Auscultation: clear to auscultation bilaterally Cardio Palpation: normal PMI Rate: regular rate Rhythm: regular rhythm Heart sounds: S1 normal heart sound present, S2 normal heart sound present and no murmurs GI Palpation (GI): Soft to palpation, nontender and No hepatosplenomegaly present Auscultation: normal bowel sounds Rectal Exam - Female: deferred Skin General skin exam: no rashes or lesions noted Neuro General: patient oriented x3, gait normal and moves all extremities Cranial nerves: Yes Equal, round and reactive pupils present Psych Appearance: grossly normal Mental Status: mental status grossly normal Assessment & Plan Assessment & Plan (1) GERD (gastroesophageal reflux disease): Code(s): K21.9 - Gastro-esophageal reflux disease without esophagitis Category: Medical (2) IBS (irritable bowel syndrome): Code(s): K58.9 - Irritable bowel syndrome, unspecified Category: Medical (3) Abdominal bloating: Code(s): R14.0 - Abdominal distension (gaseous) Category: Medical (4) Nausea: Code(s): R11.0 - Nausea Category: Medical (5) Lactose intolerance: Code(s): E73.9 - Lactose intolerance, unspecified Category: Medical (6) Adenomatous colon polyp: Comment: 01/2022 medium-sized adenomatous polyp removed from the right colon. Follow-up colonoscopy advised in 3 years (due 01/2025) Code(s): D12.6 - Benign neoplasm of colon, unspecified Category: Medical (7) Hoarseness: Code(s): R49.0 - Dysphonia Category: Medical (8) Elevated fecal calprotectin: Code(s): R19.5 - Other fecal abnormalities Category: Medical (9) Chronic constipation: Code(s): K59.09 - Other constipation Category: Medical Plan 54 YF with aortic valve disorder, asthma, fibromyalgia and anxiety followed in GI for GERD and postprandial upper abdominal pain of unclear etiology. Past evaluation with upper endoscopy, abdominal ultrasound and HIDA scan did not reveal a clear etiology for the pain. Patient admits to early satiety and nausea suggesting her symptoms may be due to idiopathic gastroparesis. A gastric emptying study was normal. 03/27/[address] scan showed mild constipation without inflammatory changes in the abdomen. Patient's symptoms are likely due to small intestinal bacterial overgrowth. Patient took metronidazole without any change in her symptoms. Just started a FODMAP diet. Advised to schedule a colonoscopy - she expressed reluctance due to concern about complications and pain after the procedure. She agreed to having the colonoscopy after multiple reassurances that procedure is low risk. She was advised a trial of taking MiraLax 3 times a week to see if for abdominal pain will improve by management of constipation - denied any change in symptoms after taking MiraLax. Pt has mild pancytopenia with low platelet count and mildly elevated transaminases - transaminases have normalized. Patient was advised a trial of dicyclomine p.r.n. for abdominal pain. She was reminded to complete stool tests (to rule out malabsorption) ordered after her clinic visit in September 2020. Stool hemoccults x3 were negative 01/2022 a medium sized adenomatous polyp was removed during colonoscopy. Random biopsies obtained from the right and left colon and rectum were normal. Repeat colon advised in 3 yrs. 09/04/22 Pt was advised to take Miralax daily x 2 weeks to see if her abdominal symptoms improve She will be scheduled for an upper GI with small-bowel follow-through ((of note, pt gives a hx of skin rash after receiving IV contrast for a CT scan in the past) 07/30/23 Complains of intermittent hoarseness Abd pain comes and goes - unable to identify any precipitating factors Continues to have bloating and gas isnt as bad. Takes Miralax prn for constipation. Pt advised to schedule an abd US and increase Lansoprazole to 30 mg twice a day x 3-4 weeks to see if hoarseness improves 12/10/23 Continues to have abdominal pain on and off. Has nausea when she has a BM. Stomach feels off and takes a light diet. Stomach bothers more if she eats something heavy. Pt advised a trail of green tea and Peppermint oil for abdominal pain (Likely non-ulcer dyspepsia) She is planning to complete stool tests in the next few day 01/2024 Fecal Calprotectin elevated at 331 Pt unable to take mesalamine due to aspirin allergy 05/25/[address] SCAN SHOWED: No acute inflammatory changes in the abdomen/pelvis. No evidence of bowel obstruction. Dense stool throughout the colon consistent with a degree of constipation. Correlate clinically. No obstructing mass is seen. Nonobstructing 2 mm calculus lower pole right kidney. CT results were reviewed with the pt. She was advised to start Linzess 145 mcg daily Colonoscopy scheduled on 11/07/23 08/11/24 Patient reports abdominal pain/bloating, nauseas, acid reflex with burning sensation, tiredness, not a good appetite also need refill for GERD . Planning to start taking Linzess this weekend. Has a soft BM every day. Feels pressure and there is nothing there Can have burning periumblical pain. Pt advised to take simethicone for gas and dicyclomine prn for abdominal pain Pt is due for FU colon in 2024 (FU of colon polyps) FU in 4 months Medications: New simethicone (Mylanta Gas) 125 mg PO QID PRN 90 tabs 2RF abdominal distention 30 days K21.9 - Gastro-esophageal reflux disease without esophagitis Refilled dicyclomine 20 mg PO TID PRN 60 tabs 3RF abdominal pain 30 days R10.10 - Upper abdominal pain, unspecified Coding Level of Care Code Est Pt Level 4 (67551) Diagnoses GERD (gastroesophageal reflux disease) K21.9 IBS (irritable bowel syndrome) K58.9 Abdominal bloating R14.0 Nausea R11.0 Lactose intolerance E73.9 Adenomatous colon polyp D12.6 Hoarseness R49.0 Elevated fecal calprotectin R19.5 Chronic constipation K59.09 Time Spent (min) 20
== END 2024-08-11 13:47 | disposition home or self-care (01) ==
PROVIDERS: PCP Nurse Practitioner Primary Care; Visit Provider Internal Medicine Gastroenterology
DX: K21.9 Gastro-esophageal reflux disease without esophagitis (principal); K58.9 Irritable bowel syndrome, unspecified; R14.0 Abdominal distension (gaseous); R11.0 Nausea; E73.9 Lactose intolerance, unspecified; D12.6 Benign neoplasm of colon, unspecified; R49.0 Dysphonia; R19.5 Other fecal abnormalities; K59.09 Other constipation
CPT/HCPCS: 99499

== ENCOUNTER 2024-12-19 12:19 | Outpatient (REF) | payer MEDICAID, SELFPAY | END 2024-12-19 12:20 | disposition home or self-care (01) | LOC: HO.MAMMO 12:19 | PROVIDERS: PCP Nurse Practitioner Primary Care; Visit Provider Nurse Practitioner Primary Care | DX: Z12.31 Encounter for screening mammogram for malignant neoplasm of breast (principal) | CPT/HCPCS: 77063; 77067 ==

== ENCOUNTER → 2024-12-19 12:30 | Outpatient (BNV) | payer MEDICAID, SELFPAY | PROVIDERS: PCP Nurse Practitioner Primary Care; Visit Provider Internal Medicine | DX: Z12.31 Encounter for screening mammogram for malignant neoplasm of breast (principal) | CPT/HCPCS: 77063; 77067 ==

== ENCOUNTER 2025-01-03 09:18 | Outpatient (REF) | payer MEDICAID, SELFPAY ==
--- NOTE | ~2025-01-03 | US_ITS ---
EXAMINATION: MM DIAGNOSTIC DIGITAL MAMMOGRAPHY, LEFT Limited left breast ultrasound. CLINICAL INFORMATION: Call back from screening for asymmetry in the inferior left breast on MLO view. COMPARISON: Mammography: Priors on PACS TECHNIQUE: Digital mammography is performed in craniocaudal and mediolateral oblique views along with computer-aided detection (CAD). FINDINGS: There are scattered areas of fibroglandular density (ACR BI-RADS breast composition Category b). Previously seen asymmetry in the inferior breast on MLO view does not persist on additional imaging projections and likely represented overlapping breast tissue the imaging appearance is not significantly changed from priors dating back to 2021. Suspicious calcifications or other abnormal findings. Targeted color Doppler ultrasound scanning in the left breast from 5-7 o'clock demonstrates normal fibronodular breast tissue. There is no sonographic abnormality. Results are provided to the patient at time of visit by the technologist. US/US breast LT limited mamm only IMPRESSION: No mammographic evidence of malignancy. ASSESSMENT: BI-RADS BI-RADS 1 - Negative RECOMMENDATION: 1 year F/U This patient's information was entered into a reminder system with a target due date for their next mammogram. Electronically signed by: Kelley Rascon DO 01/03/2025 10:18 AM EDT
--- OUTSIDE RECORDS SUMMARY | 2025-01-03 10:20 | XMS_ITS | Clinical Summary ---
Author Organization [x+1] [employer] Address [address] [facility] [address] [place] [address] Care Team Providers Care Spaghetti Machine Operator Name Role Phone MarinaMaddi Primary Care Provider [phone] Allergies Active Allergy Reactions Criticality Noted Date Comments Aspirin Unknown 10/15/2010 Cephalexin Unknown 10/15/2010 Doxycycline 10/15/2010 Erythromycin Unknown 10/15/2010 Fluticasone 09/01/2016 Other reaction(s): blisters in mouth Loratadine Headache 10/15/2010 Mometasone 10/15/2010 Other reaction(s): blisters Ofloxacin Unknown 10/15/2010 Omeprazole 10/15/2010 Other reaction(s): blisters Pantoprazole 10/15/2010 Other reaction(s): unspecified Nirmatrelvir-Ritonavir Rash Low 09/25/2022 Penicillins Unknown 10/15/2010 Sulfamethoxazole 10/15/2010 Other reaction(s): rash Trimethoprim 10/15/2010 Other reaction(s): rash Zafirlukast 10/15/2010 Other reaction(s): unspecified Medications LORazepam (Ativan) 0.25 mg split tablet TAKE 1 TABLET BY MOUTH AT BEDTIME NEEDED 01/08/20 22 Active dicyclomine (Bentyl) 20 MG tablet TAKE 1 TABLET BY MOUTH THREE TIMES DAILY NEEDED FOR ABDOMINAL PAIN 07/30/20 22 Active lansoprazole (Prevacid) [address] capsule Take 1 capsule by mouth at bed time. Active nortriptyline (Pamelor) 50 MG capsule Take 2 capsules by mouth. Active polyethylene glycol, PEG, 3350 (Glycolax) 17 GM/SCOOP powder TAKE 17 GM MIXED IN 8 OUNCES OF WATER ONCE DAILY 09/04/20 22 Active propranolol (Inderal) 20 MG tablet Take 20 mg by mouth in the morning and at bedtime. 07/24/20 22 Active sodium chloride ([place]) 0.65 % nasal sprayIndications :Acute non-recurrent frontal sinusitis 1-2 spray on each nostril every 2-3 hours as needed for nasal congestion 30 mL 1 02/20/20 23 Active glucose blood (FREESTYLE LITE) test stripIndications :Prediabetes Check BS once a day 100 each 11 03/03/20 23 Active meclizine (Antivert) 25 MG tabletIndication s:Dizziness Take 1 tablet (25 mg) by mouth if needed each day for dizziness. 30 tablet 1 07/21/20 23 Active D3 Super Strength 50 MCG (2000 UT) capsule TAKE 1 CAPSULE BY MOUTH EVERY DAY 90 capsule 3 12/28/19 24 Active cetirizine (ZyrTEC) 10 MG tabletIndication s:Acute laryngitis TAKE 1 TABLET BY MOUTH EVERY DAY IN THE MORNING 90 tablet 1 07/12/20 24 Active acetaminophen (Tylenol Extra Strength) 500 MG tabletIndication s:Migraine without status migrainosus, not intractable, unspecified migraine type 1-2 tabs as needed for headache 90 tablet 1 07/29/20 24 Active Ventolin HFA 108 (90 Base) MCG/ACT inhalerIndicatio ns:Mild persistent asthma without complication INHALE 2 PUFFS BY MOUTH EVERY 6 HOURS NEEDED FOR WHEEZING OR SHORTNESS OF BREATH 18 g 1 12/27/19 25 Active ProAir HFA 108 (90 Base) MCG/ACT inhalerIndicatio ns:Mild persistent asthma without complication Inhale 2 puffs every 6 (six) hours if needed for wheezing or shortness of breath. 18 g 1 07/29/20 24 025 Discontinued Active Problems Problem Noted Date Diagnosed Date Adenomatous polyp of colon 07/02/2023 Overview (07/02/2023): From GI note 02/2022: ENDOSCOPIC PROCEDURES: 01/2022 COLONOSCOPY SHOWED: Colonoscopy Findings: One medium sized adenomatous polyp removed. Random biopsies were obtained from the right and left colon and rectum - normal Moderate diverticulosis seen in the sigmoid colon Plan: Repeat Colonoscopy interval based on path results - in 3 years if polyps are adenomatous and 10 years if polyps are hyperplastic. (Adult colonoscope for future colonoscopies) 09/2019 EGD WAS PERFORMED [address] DR[address] KIRK: Endoscopy Findings: esophagitis mild gastritis Plan: Await pathology results Might benefit from trial of PPI if not taking if path neg and ongoing sx then gES to rule out gastroparesis BIOPSIES SHOWED: A. Duodenum, biopsies: Duodenal mucosa with no significant histopathology; no villous abnormality identified; no increase in intraepithelial lymphocytes. B. Stomach, biopsies: Gastric mucosa with mild chronic, inactive gastritis; negative for Helicobacter pylori organisms; negative for intestinal metaplasia; negative for dysplasia. C. Stomach, polyp, biopsy: Fundic gland polyp with background mild chronic inactive inflammation; no Helicobacter organisms seen. D. GE junction, biopsies: Gastroesophageal junctional mucosa with mild to moderate chronic inflammation and squamous epithelium with reactive features suggestive of reflux disease; negative for intestinal metaplasia; negative for dysplasia. Migraine without status migrainosus, not intract able 06/24/2023 Overview (06/24/2023): Was following w/ Dr. Lowe Trialed (for migraine and/or fibromyalgia): nortriptyline (did not help), gabapentin (mood swings), duloxetine (allergic reaction) Aortic stenosis with bicuspid valve 06/24/2023 Acute non-recurrent frontal sinusitis 02/19/2023 Assessment & Plan (02/19/2023 4:01 PM EDT): Drink plenty of fluids and rest Fibromyalgia 11/29/2015 Anxiety 09/05/2015 Bicuspid aortic valve 09/05/2015 Dizziness 09/05/2015 Gastroesophageal reflux disease without esophagi tis 09/05/2015 Impaired glucose tolerance 09/05/2015 Mild persistent asthma 09/05/2015 Pancytopenia 09/05/2015 Overview (06/24/2023): Follows w/ Dr. Wolf Encounters Date Type Department Care Team Description 12/25/2024 Refill [facility] [address] [place] [address] Maddi Marina ANP Mild persistent asthma without complication 12/19/2024 Orders Only [facility] [address] [place] [address] Maddi Marina ANP 12/09/2024 Population Health Risk Score [facility] () [address] [place] [address] Provider, Population Health Generic from Last 3 Months Immunizations Name Administration Dates Next Due Hep B, adult 12/20/2007,09/14/2007,08/12/2007 Influenza Injectable Quadriv alant Preservative Free IIV4 MDCK 07/14/2022,08/19/2021 Influenza injectable quadriv alent IIV4 with preservative 06/24/2018,06/17/2017,06/15/2015 Influenza injectable quadriv alent preservative free 07/02/2023,06/14/2020,06/20/2019,07/03 Influenza, IIV3, injectable 06/09/2014, 1 Influenza, Split (incl. chinmay fied surface antigen) 06/07/2013,07/14/2012 Influenza, seasonal, injecta ble, preservative free 07/29/2024 Pneumococcal Polysaccharide PPSV23 06/09/2014 TD (adult), 2 Lf tetanus tox oid, preservative free, adsorbed 12/29/2023,01/05/2006 Tdap 02/22/2013 Social History Tobacco Use Types Packs/Day Years Used Date Smoking Tobacco: Never Passive Smoke Exposure: Never Smokeless Tobacco: Never Tobacco Cessation:Counseling Given: Not Answered Alcohol Use Standard Drinks/Week Comments Not Currently 0 (1 standard drink = 0.6 oz pur e alcohol) Depression Answer Date Recorded Patient Health Questionnaire-9 Score 0 12/29/2023 Patient Health Questionnaire-9 Score 0 12/29/2023 Last PHQ-9: Questionnaire Data Not on file 0 12/29/2023 Housing Stability Answer Date Recorded What is your housing situation today? I have chary gomes 12/21/[address] you li ve. Do you have problems with any of the following? None of the above 12/21/2023 Food Insecurity Answer Date Recorded Within the past 12 months, y ou worried that your food would run out before you got money to buy more: Never True 12/21/2023 Within the past 12 months,th e food you bought just didn't last and you didn't have enough money to get more: Never True Transportation Answer Date Recorded In the past 12 months, has l ack of transportation kept you from medical appts, meetings, work or from getting things needed for daily living? No 12/21/2023 Utilities Answer Date Recorded In the past 12 months, has t he electric, gas, oil or water company threatened to shut off services in your home? No 12/21/2023 Depression Answer Date Recorded Patient Health Questionnaire-2 Score 0 12/29/2023 Comments Unknown Sex and Gender Information Value Date Recorded Sex Assigned at Female 07/28/2022 10:14 AM EDT Legal Sex Female 10:14 AM EDT Gender Identity Female 07/28/2022 10:14 AM EDT Sexual Orientation Straight 07/28/2022 10 :14 AM EDT Last Filed Vital Signs Vital Sign Reading Time Taken Comments Blood Pressure 114/76 07/29/2024 1:58 PM EDT Pulse 99 07/29/2024 1:58 PM EDT Temperature 36.2 ??C (97.2 ??F) 07/29/2024 1:58 PM ED T Respiratory Rate 16 07/29/2024 1:58 PM EDT Oxygen Saturation 99% 07/29/2024 1:58 PM EDT Inhaled Oxygen Concentration - - Weight 65.4 kg (144 lb 3.2 oz) 07/29/2024 1:58 P M EDT Height 154.9 cm (5' 1 ) 07/29/2024 1:58 PM EDT Body Mass Index 27.25 07/29/2024 1:58 PM EDT Plan of Treatment Upcoming Encounters Date Type Department Care Team (Late st Contact Info) Description 01/31/2025 1:00 PM EDT Office Visit [facility] MEDICINE [address] [place] [address] Maddi Marina, ANP [address] [place] [address] Health Maintenance Due Date Last Done Comments CT Colonography 1968 FIT DNA/Cologuard 1968 FOBT 1970 HIV Screening 1970 Sigmoidoscopy 1968 Hepatitis C Screening 1986 Pap Smear 1989 Pneumococcal Vaccine: 50+ Years (2 of 2 - PCV) 06/09/2015 06/09/2014 Zoster Vaccines (1 of 2) 2018 FIT 02/19/2022 02/19/2021 COVID-19 Vaccine (1 - season) 2024 SDOH Screening 12/20/2024 12/21/2023 Diagnostic Breast Imaging 12/26/2024 12/01/2022 Depression Screening 12/28/2024 12/29/2023, 12/29/19 24 Colonoscopy 01/31/2025 01/31/2022 Colorectal Cancer Screening 01/31/2025 Tobacco Screening 07/29/2025 07/29/2024 Alcohol/Substance Use Screening 08/18/2025 08/18/2024 Cervical Cancer Screening 10/30/2026 HPV/Cotest 10/30/2026 10/30/2021, 10/30/2021 DTaP/Tdap/Td Vaccines (3 - Td or Tdap) 12/28/2033 12/29/2023, 02/22/2013, 01/05/2006 RSV Patients and Patients Aged 60 years or older (1 - 1-dose 75+ series) 2043 Hepatitis B Vaccines Completed 12/20/2007, 09/14/2007, 08/12/2007 Influenza Vaccine Completed 07/29/2024, , 07/14/2022, Additional history exists HIB Vaccines Aged Out No longer eligi ble based on patient's age to complete this topic HPV Vaccines Aged Out No longer eligi ble based on patient's age to complete this topic Hepatitis A Vaccines Aged Out No long er eligible based on patient's age to complete this topic IPV Vaccines Aged Out No longer eligi ble based on patient's age to complete this topic Meningococcal Vaccine Aged Out No chris nilda eligible based on patient's age to complete this topic RSV under 20 months Aged Out No longe r eligible based on patient's age to complete this topic Rotavirus Vaccines Aged Out No longer eligible based on patient's age to complete this topic Procedures Procedure Name Priority Date/Time Associated Diagnosis Comments BI MAMMOGRAM SCREENING TOMOSYNTHESIS BILATERAL Routine 12/19/2024 12:30 PM EDT HM MAMMOGRAPHY Routine 12/01/2022 4:22 PM EST HM COLONOSCOPY Routine 01/31/2022 SHANTAL HISTORICAL HPV E6/E7 RFLX YAMEL 16 18/45 Routine 10/30/2021 3:02 PM EST [facility] HISTORICAL FECAL IMMUNOCHEMICAL TEST X1 (FIT) Routine 02/19/2021 12:00 AM EDT from Last 3 Months or Most Recently Relevant to Health Maintenance Results * BI Mammogram Screening Tomosynthesis Bilateral (12/19/2024 12:30 PM EDT) Anatomical Region Laterality Modality Breast Bilateral Mammography 12/19/2024 12:3 0 PM EDT Narrative 12/25/2024 8:31 PM EDT ? [facility] [place] ? [address] ?[place] [address] ?[phone] ? Mammography Report ? Signed ? Patient: Jesi Mena ?MR#: [id number] ?? [id number] ? : 1970 ?Acct:[id number] ? Age/Sex: 54 / F ?ADM Date: 03/24/25 ? Loc: HO.MAMMO ? Attending Dr: Maddi Marina AUDIO PRODUCTION MANAGER ? Ordering Physician: LAINA,MDADI AUDIO PRODUCTION MANAGER ?Results: 0Incomplete ?? : Needs Additional Imaging Evaluation ? Date of Service: 03/24/25 ?Follow Up: Additional Imagi ?? ng ? Procedure(s): MM tomosynthesis screening BI ?? Accession Number(s): [id number] ? cc: LAINA,MADDI AUDIO PRODUCTION MANAGER ? EXAMINATION: ?? MM SCREENING DIGITAL BREAST TOMOSYNTHESIS, BILATERAL ? CLINICAL INFORMATION: ? Screening. Asymptomatic. ? COMPARISON: ?? Mammography: Comparison is made with available priors ? TECHNIQUE: ?? Digital breast mammography with tomosynthesis is performed in both the ?? craniocaudal and mediolateral oblique views along with computer-aided ?? detection (CAD). ? FINDINGS: ?? There are scattered areas of fibroglandular density (ACR BI-RADS breast ?? composition Category b). ?? Right: ?? There are no significant masses, abnormal calcifications, or other ?? abnormalities. ? Left: ?? Asymmetry retroareolar region MLO view middle depth. ?? No suspicious calcifications or other abnormal findings. ? MM/MM tomosynthesis screening BI ?? IMPRESSION: ?? Additional imaging is recommended ? ASSESSMENT: ? BI-RADS BI-RADS 0 - Incomplete: Needs additional Imaging. ? RECOMMENDATION: ?? 1. Additional views of the left breast. ?? 2. Targeted ultrasound if warranted after review of the additional ?? views. ?? 3. Radiology department staff will contact the patient for additional ?? imaging. ? Additional Imaging required ? This examination should not preclude the clinical evaluation of a ?? suspicious palpable abnormality. ? This patient's information was entered into a reminder system with a ?? target due date for their next mammogram. ? Electronically signed by: ??Kelley Rascon DO ??12/25/2024 08:28 PM EDT ?? RP ? Dictated By: ?Kelley Rascon DO ? Signed By: ?<Electronically signed by Kelley Rascon, DO in OV> ? 12/25/242027 ? DD/ 1230 ? TD/TT: 12/19/24 1250 ? Director Software: ? Procedure Note Jay, Image - 12/25/2024 [facility] [address] [place] [address] Mammography Report Signed Patient: Braeden Mena#: [id number] : 1970Acct:[id number] Age/Sex: 54 / FADM Date: 12/19/24 Loc: HO.MAMMO Attending Dr: Maddi Marina NP Ordering Physician: MADDI MARINA NPResults: 0Incomplete : Needs Additional Imaging Evaluation Date of Service: 12/19/24Follow Up: Additional Imagi ng Procedure(s): MM tomosynthesis screening BI Accession Number(s): [id number] cc: MADDI MARINA NP EXAMINATION: MM SCREENING DIGITAL BREAST TOMOSYNTHESIS, BILATERAL CLINICAL INFORMATION: Screening. Asymptomatic. COMPARISON: Mammography: Comparison is made with available priors TECHNIQUE: Digital breast mammography with tomosynthesis is performed in both the craniocaudal and mediolateral oblique views along with computer-aided detection (CAD). FINDINGS: There are scattered areas of fibroglandular density (ACR BI-RADS breast composition Category b). Right: There are no significant masses, abnormal calcifications, or other abnormalities. Left: Asymmetry retroareolar region MLO view middle depth. No suspicious calcifications or other abnormal findings. MM/MM tomosynthesis screening BI IMPRESSION: Additional imaging is recommended ASSESSMENT: BI-RADS BI-RADS 0 - Incomplete: Needs additional Imaging. RECOMMENDATION: 1. Additional views of the left breast. 2. Targeted ultrasound if warranted after review of the additional views. 3. Radiology department staff will contact the patient for additional imaging. Additional Imaging required This examination should not preclude the clinical evaluation of a suspicious palpable abnormality. This patient's information was entered into a reminder system with a target due date for their next mammogram. Electronically signed by: Kelley Rascon DO 12/25/2024 08:28 PM EDT Dictated By: Kelley Rascon DO Signed By: <Electronically signed by Kelley Rascon DO in OV> 12/25/242027 DD/ 1230 TD/TT: 12/19/24 1250 Director Software: Maddi Marina ANP IMG BI PROCEDURES Edited Result - Final * Hm Mammography (12/01/2022 4:22 PM EST) Mammogram Bi Rad1 Negative Anatomical Region Laterality Modality Other Historical Provider MD HEALTH MAINTENANCE Final Result * Colonoscopy (01/31/2022) Pathologist [facility] Colonoscopy Normal Normal Historical Provider MD HEALTH MAINTENANCE Final Result * HPV E6/E7 RFLX YAMEL 16 18/45 (10/30/2021 3:02 PM EST) [facility] HPV 16 RNA [facility] HPV 18/45 RNA [facility] HPV E6 E7 ADD [facility] HPV mRNA E6/E7 rflx Not Detected Not Detected [facility] Comment: Methodology: Traffic Attendant-Mediated Amplification This assay detects E6/E7 viral messenger RNA (mRNA) from 14 high-risk HPV types (16,18,31,33,35,39,45,51,52,56,58,59,66,68). The analytical performance characteristics of this assay have been determined by [employer]. The modifications have not been cleared or approved by the FDA. This assay has been validated pursuant to the CLIA regulations and is used for clinical purposes. For additional information, please refer to http://education.LoopIt.Tengrade/faq/ICG166m4 (This link if provided for information/ educational purposes only.) THIS TEST WAS PERFORMED AT: [facility] [address] [place] [address] [address] [place], [place] ??[phone] MAHIN INMAN MD 10/30/2021 3:02 PM EST Justine Moreno HISTORICAL/NON ORDERABLE LABS Fi nal Result [facility] [address] * Fecal immunochemical test x1 (FIT) (02/19/2021 12:00 AM EDT) [facility] FIT Date 1 02/18/21 [facility] FIT Date 2 02/19/21 [facility] FIT Lot [id number] [facility] FIT1 NEGATIVE NEGATIVE [facility] FIT2 NEGATIVE NEGATIVE [facility] 02/19/2021 us Historical Provider HISTORICAL/NON ORDERABLE LABS Final Result [facility] [address] from Last 3 Months or Most Recently Relevant to Health Maintenance Insurance [employer] C3 Care Teams Spaghetti Machine Operator Relationship Specialty Start Date End Date Maddi Marina ANP [address] [place] [phone] PCP - General Family Medicine 11/14/20
--- OUTSIDE RECORDS SUMMARY | 2025-01-03 10:20 | XMS_ITS | Encounter Summary ---
Author Organization [employer] [facility] Address [address] [facility] [address] [place] [address] Care Team Providers Care Research Professor Of Biostatistics Name Role Phone Ronit Hernandez Primary Care Provider Encounter Details Date Type Department Care Team (Late st Contact Info) Description 12/05/2022 Abstract [facility] MEDICINE [address] [place] [phone] Ronit Hernandez ANP [address] [place] [address] [phone] Social History Tobacco Use Types Packs/Day Years Used Date Smoking Tobacco: Never Smokeless Tobacco: Never Alcohol Use Standard Drinks/Week Comments Not Currently 0 (1 standard drink = 0.6 oz pur e alcohol) Depression Answer Date Recorded Patient Health Questionnaire-2 Score 0 11/10/2022 Comments Unknown Sex and Gender Information Value Date Recorded Sex Assigned at Female 07/28/2022 10:14 AM EDT Legal Sex Female 10:14 AM EDT Gender Identity Female 07/28/2022 10:14 AM EDT Sexual Orientation Straight 07/28/2022 10 :14 AM EDT COVID-19 Exposure Response Date Recorded In the last 10 days, have yo u been in contact with someone who was confirmed or suspected to have Coronavirus/COVID-19? No / Unsure 11/10/2022 2:06 PM EST documented as of this encounter Plan of Treatment Upcoming Encounters Date Type Department Care Team (Late st Contact Info) Description 01/31/2025 1:00 PM EDT Office Visit [facility] MEDICINE [address] [place] [phone] Ronit Hernandez ANP [address] [place] [address], [place] [address] documented as of this encounter Procedures Procedure Name Priority Date/Time Associated Diagnosis Comments MAMMOGRAPHY Routine 12/01/2022 4:22 PM EST documented in this encounter Results * Mammography (12/01/2022 4:22 PM EST) Mammogram Bi Rad1 Negative Anatomical Region Laterality Modality Other us Historical Provider MD HEALTH MAINTENANCE Final Result documented in this encounter Visit Diagnoses Not on filedocumented in this encounter Care Teams Research Professor Of Biostatistics Relationship Specialty Start Date End Date Ronit Hernandez ANP [address] [place] [address] PCP - General Family Medicine 11/14/20 documented as of this encounter
--- OUTSIDE RECORDS SUMMARY | 2025-01-03 10:20 | XMS_ITS | Encounter Summary ---
Author Organization [employer] [facility] Address [address] [facility] [address] [place] [address] Care Team Providers Care Logistics Account Manager Name Role Phone Ronit Hernandez Primary Care Provider [phone] Reason for Visit * Reason Comments Med Refill Encounter Details Date Type Department Care Team (Late st Contact Info) Description 01/29/[address] [facility] MEDICINE [address] [place] [address] [phone] Ronit Hernandez ANP [address] [place], [place] [phone] Social History Tobacco Use Types Packs/Day Years [...] Orientation Straight 07/28/2022 10 :14 AM EDT documented as of this encounter Plan of Treatment Upcoming Encounters Date Type Department Care Team (Late st Contact Info) Description 01/31/2025 1:00 PM EDT Office Visit [facility] MEDICINE [address] [place] [address] [phone] Ronit Hernandez ANP [address] [place], [place] [phone] documented as of this encounter Visit Diagnoses Not on filedocumented in this encounter Care Teams Logistics Account Manager Relationship Specialty Start Date End Date Ronit Hernandez ANP [address] [place] [address] PCP - General Family Medicine 11/14/20 documented as of this encounter
== END 2025-01-03 09:19 | disposition home or self-care (01) ==
LOC: HO.MAMMO 09:18
PROVIDERS: PCP Nurse Practitioner Primary Care; Visit Provider Nurse Practitioner Primary Care
DX: N64.89 Other specified disorders of breast (principal); R92.322 Mammographic fibroglandular density, left breast; R92.332 Mammographic heterogeneous density, left breast
CPT/HCPCS: 76642; 77065

== ENCOUNTER → 2025-01-03 09:45 | Outpatient (BNV) | payer MEDICAID, SELFPAY | PROVIDERS: PCP Nurse Practitioner Primary Care; Visit Provider Internal Medicine | DX: R92.8 Other abnormal and inconclusive findings on diagnostic imaging of breast (principal) | CPT/HCPCS: 76642; 77065 ==

== ENCOUNTER 2025-06-28 14:30 | Outpatient (AMB) | payer MEDICAID, SELFPAY ==
--- NOTE | 2025-06-28 15:12 | A.OFFVIS_ITS ---
Intake Visit Reasons: 05/03/25 NO SHOW Allergies amitriptyline (AMITRIPTYLINE) Allergy (Unknown, Verified 08/11/24 12:41) ANGER aspirin (ASPIRIN) Allergy (Unknown, Verified 08/11/24 12:41) HIVES AND NAUSEA azithromycin (AZITHROMYCIN) Allergy (Unknown, Verified 08/11/24 12:41) HIVES AND NAUSEA doxycycline Allergy (Unknown, Verified 08/11/24 12:41) Hives, nausea erythromycin base (ERYTHROMYCIN BASE) Allergy (Unknown, Verified 08/11/24 12:41) Nausea and Vomiting fluticasone (From FLOVENT DISKUS) Allergy (Unknown, Verified 08/11/24 12:41) BLISTERS IN MOUTH ibuprofen (IBUPROFEN) Allergy (Unknown, Verified 08/11/24 12:41) HIVES, HEADACHE ifosfamide Allergy (Unknown, Verified 08/11/24 12:41) Unknown loratadine (Claritin) Allergy (Unknown, Verified 08/11/24 12:41) Headache pantoprazole (Protonix) Allergy (Unknown, Verified 08/11/24 12:41) Nausea and Vomiting Sulfa (Sulfonamide Antibiotics) Allergy (Unknown, Verified 08/11/24 12:41) Hives and Nausea sulfamethoxazole (From BACTRIM) Allergy (Unknown, Verified 08/11/24 12:41) HIVES AND NAUSEA trimethoprim (From BACTRIM) Allergy (Unknown, Verified 08/11/24 12:41) HIVES AND NAUSEA zafirlukast (From ACCOLATE) Allergy (Unknown, Verified 08/11/24 12:41) HIVES AND NAUSEA cephalexin Allergy (Unknown, Uncoded 01/29/24 12:59) Unknown ethylsuccinate Allergy (Unknown, Uncoded 01/29/24 12:59) Unknown Fluoxetine Allergy (Unknown, Uncoded 01/29/24 12:59) Unknown fluticasone Allergy (Unknown, Uncoded 01/29/24 12:59) Unknown Folastin Allergy (Unknown, Uncoded 01/29/24 12:59) Unknown FOLEX Allergy (Unknown, Uncoded 01/29/24 12:59) HIVES AND NAUSEA furoate Allergy (Unknown, Uncoded 01/29/24 12:59) Unknown mometasone Allergy (Unknown, Uncoded 01/29/24 12:59) Unknown ofloxacin Allergy (Unknown, Uncoded 01/29/24 12:59) Unknown omeprazole Allergy (Unknown, Uncoded 01/29/24 12:59) Unknown penicillins Allergy (Unknown, Uncoded 01/29/24 12:59) Hives propionate Allergy (Unknown, Uncoded 01/29/24 12:59) Unknown Symbicort Allergy (Unknown, Uncoded 01/29/24 12:59) Unknown HPI Comments Details: The patient is a 55-year-old female presenting with difficulty with sleep and mood fluctuations. She reports a variable mood, describing it as up and down, with difficulty obtaining restful sleep. Her sleep amounts to approximately five hours per night, which suggests a persistent sleep deficit. These issues have been ongoing with a subjective variation in symptom severity over time. The pat ient is currently on 100 mg of nortriptyline, which provides partial relief by enabling some sleep, though not completely resolving the issue. ON LICENSE OF [facility] Medical History (Updated 06/28/25 @ 15:14 by Annmarie Lowe MD) Anxiety disorder Fasting hyperglycemia Vertigo Pancytopenia Hypoglycemia History of tachycardia Allergic rhinitis Kidney stones Inappropriate sinus node tachycardia Bicuspid aortic valve Aortic stenosis Migraine Fibromyalgia IBS (irritable bowel syndrome) GERD (gastroesophageal reflux disease) Asthma Depression Anxiety Mitral and aortic regurgitation Surgical History Hx of tubal ligation History of loop electrical excision procedure (LEEP) Hx of ovarian cystectomy History of eye surgery Hx of dilation and curettage History of left knee surgery History of appendectomy History of esophagogastroduodenoscopy (EGD) Family History Father Larynx cancer Mother CVD (cardiovascular disease) Stroke Maternal Grandmother Ovarian cancer Colon cancer Family/Other History of breast cancer Social History Household Members: Spouse Housing: House Are you a primary early breastfeeding care specialist to a significant other at home: No Do you presently have visiting nurse or other home services: No Alcohol intake: never Comment: mild cramping Patient Tobacco Use Status: Never used Tobacco service: No Current occupational status: disabled Sexual orientation: Straight/Heterosexual Gender identity: Female Review of Systems Const Details: - Neurological: Reports difficulty sleeping, approximately five hours per night. - Psychiatric: Reports variable mood with fluctuations described as up and down. Physical Exam Neuro Other: Mental Status: Alert and oriented to person, place, and time. Normal attention. Normal spontaneous speech, fluency, and comprehension. No obvious issues with mood and memory. Affect is appropriate. Cranial Nerves: CN II: Visual garcia full to confrontation, visual acuity intact. CN III, IV, : Pupils equal, round, reactive to light and accommodation. Extraocular movements are normal. CN V: Facial sensation is normal. CN VII: Facial movements symmetrical. CN VIII: Hearing intact to bedside conversation is normal. CN IX, X: Palate elevates symmetrically. CN XI: Shoulder shrug and head turn symmetrical. CN XII: Tongue midline without atrophy or fasciculations. Extrapyramidal: Full facial expressions and blinking. No rigidity. Movements are appropriate with no tremor or abnormality. Speech: Normal; no dysarthria or tremor. Assessment & Plan Assessment & Plan (1) Migraine: Code(s): G43.909 - Migraine, unspecified, not intractable, without status migrainosus Category: Medical Qualifiers: Migraine type: migraine (< 15 days per month) without aura Status migrainosus presence: without status migrainosus Intractability: not intract able Qualified Code(s): G43.009 - Migraine without aura, not intractable, without status migrainosus (2) Fibromyalgia: Comment: Tried and failed: Gabapentin (mood swings), Nortryptiline (did not help), Cymbalta (allergic reaction). MRI brain [facility] [place] [facility] [place] March 2015: one puctate right parietal WM hyperintensity. Code(s): M79.7 - Fibromyalgia Category: Medical Plan Impression: a: Fibromyalgia b: Migraine Rec: Nortryptiline 50mg, 2 at night Medications: Refilled nortriptyline 100 mg (2 x 50 mg) PO BEDTIME 180 caps 0RF Coding Level of Care Code Est Pt Level 4 (40570) Diagnoses Migraine without aura and without status migrainosus, not intractable G43.009 Migraine type: migraine (< 15 days per month) without aura Status migrainosus presence: without status migrainosus Intractability: not intractable Fibromyalgia M79.7
--- OUTSIDE RECORDS SUMMARY | 2025-06-28 15:40 | XMS_ITS | Encounter Summary ---
Author Organization [facility] Address [address] [facility] [address] [place] [address] Care Team Providers Care Flume Worker Name Role Phone Ronit Hernandez Primary Care Provider [phone] Reason for Visit * Reason Comments Med Refill Encounter Details Date Type Department Care Team (Late st Contact Info) Description 01/29/2023 Refill [facility] [address] [place] [address] [phone] Ronit Hernandez ANP [address] [place], [place] [phone] Social History Tobacco Use Types Packs/Day Years [...] Care Team (Late st Contact Info) Description 08/03/2025 1:00 PM EST Office Visit [facility] [address] [place] [address] [phone] Ronit Hernandez ANP [address] [place], [place] [phone] documented as of this encounter Visit Diagnoses Not on filedocumented in this encounter Care Teams Flume Worker Relationship Specialty Start Date End Date Ronit Hernandez ANP [address] [place] [address] PCP - General Family Medicine 11/14/20 documented as of this encounter
--- OUTSIDE RECORDS SUMMARY | 2025-06-28 15:40 | XMS_ITS | Clinical Summary ---
Author Organization [employer] Address [address] [facility] [address] [place] [address] Care Team Providers Care Key Account Representative Name Role Phone Maddi Marina YULISA Primary Care Provider [phone] Allergies Active Allergy Reactions Criticality Noted Date [...] 1 TABLET BY MOUTH AT BEDTIME NEEDED 2 Active dicyclomine (Bentyl) 20 MG tablet TAKE 1 TABLET BY MOUTH THREE TIMES DAILY NEEDED FOR ABDOMINAL PAIN 2 Active lansoprazole (Prevacid) [address] capsule Take 1 capsule by mouth at bed time. Active nortriptyline (Pamelor) 50 MG capsule Take 2 capsules by mouth. Active polyethylene glycol, PEG, 3350 (Glycolax) 17 GM/SCOOP powder TAKE 17 GM MIXED IN 8 OUNCES OF WATER ONCE DAILY 2 Active propranolol (Inderal) 20 MG tablet Take 20 mg by mouth in the morning and at bedtime. 2 Active sodium chloride (Barwick) 0.65 % nasal sprayIndications: Acute non-recurrent frontal sinusitis 1-2 spray on each nostril every 2-3 hours as needed for nasal congestion 30 mL 1 3 Active glucose blood (FREESTYLE LITE) test stripIndications: Prediabetes Check BS once a day 100 each 11 3 Active meclizine (Antivert) 25 MG tabletIndications :Dizziness Take 1 tablet (25 mg) by mouth if needed each day for dizziness. 30 tablet 1 3 Active acetaminophen (Tylenol Extra Strength) 500 MG tabletIndications :Migraine without status migrainosus, not intractable, unspecified migraine type 1-2 tabs as needed for headache 90 tablet 1 4 Active Ventolin HFA 108 (90 Base) MCG/ACT inhalerIndication s:Mild persistent asthma without complication INHALE 2 PUFFS BY MOUTH EVERY 6 HOURS NEEDED FOR WHEEZING OR SHORTNESS OF BREATH 18 g 1 5 Active Blood Glucose Monitoring Suppl (FreeStyle Lite) w/Device kitIndications:Im paired glucose tolerance 1 each Once per day. 1 kit 5 Active cetirizine (ZyrTEC) 10 MG tabletIndications :Acute laryngitis TAKE 1 TABLET BY MOUTH EVERY DAY IN THE MORNING 90 tablet 1 5 Active D3 Super Strength 50 MCG (1999 UT) capsule TAKE 1 CAPSULE BY MOUTH EVERY DAY 90 capsule 3 5 Active Active Problems Problem Noted Date Diagnosed Date [...] colonoscopies) 09/2019 EGD WAS PERFORMED [address] KIKR: Endoscopy Findings: esophagitis mild gastritis Plan: Await [...] Encounters Date Type Department Care Team Description 05/30/2025 Telephone [facility] [address] [place] [phone] Maddi Marina ANP July recall from Last 3 Months Immunizations Immunization Administration Dates Next Due Hep B, adult 12/20/2007,09/14/2007,08/12/2007 Influenza Injectable Quadriv alant Preservative Free IIV4 MDCK 07/14/2022,08/19/2021 Influenza injectable quadriv alent IIV4 with preservative 06/24/2018,06/17/2017,06/15/2015 Influenza injectable quadriv alent preservative free 07/02/2023,06/14/2020,06/20/2019,07/03 Influenza, IIV3, injectable 06/09/2014, 1 Influenza, Split (incl. chinmay fied surface antigen) 06/07/2013,07/14/2012 Influenza, seasonal, injecta ble, preservative free 07/29/2024 Pneumococcal Conjugate PCV 20 01/31/2025 Pneumococcal Polysaccharide PPSV23 06/09/2014 TD (adult), 2 [...] Answer Date Recorded Patient Health Questionnaire-9 Score 7 01/31/2025 Patient Health Questionnaire-9 Score 7 01/31/2025 Last PHQ-9: Questionnaire Data Not on file 0 01/31/2025 Housing Stability Answer Date Recorded What is your housing situation today? I have chary gomes 01/31/[address] you li ve. Do you have problems with any of the following? None of the above 01/31/2025 Food Insecurity Answer Date Recorded Within the past 12 months, y ou worried that your food would run out before you got money to buy more: Never True 01/31/2025 Within the past 12 months,th e food you bought just didn't last and you didn't have enough money to get more: Never True 02/2025 Transportation Answer Date Recorded In the past 12 months, has l ack of transportation kept you from medical appts, meetings, work or from getting things needed for daily living? No 01/31/2025 Utilities Answer Date Recorded In the past 12 months, has t he electric, gas, oil or water company threatened to shut off services in your home? No 01/31/2025 Depression Answer Date Recorded Patient Health Questionnaire-2 Score 2 01/31/2025 Internet Access Answer Date Recorded Internet Access Q1 Yes 01/31/2025 Internet Access Q2 Not on file 01/31/2025 Comments Unknown Sex and Gender Information Value Date Recorded Sex Assigned at Female 07/28/2022 10:14 AM EDT Legal Sex Female 10:14 AM EDT Gender Identity Female 07/28/2022 10:14 AM EDT Sexual Orientation Straight 07/28/2022 10 :14 AM EDT Last Filed Vital Signs Vital Sign Reading Time Taken Comments Blood Pressure 124/82 01/31/2025 1:05 PM EDT Pulse 99 01/31/2025 1:05 PM EDT Temperature 36.2 C (97.2 F) 07/29/2024 1:58 PM EDT Respiratory Rate 16 01/31/2025 1:05 PM EDT Oxygen Saturation 99% 07/29/2024 1:58 PM EDT Inhaled Oxygen Concentration - - Weight 68 kg (150 lb) 01/31/2025 1:05 PM EDT Height 154.9 cm (5' 1 ) 01/31/2025 1:05 PM EDT Body Mass Index 28.34 01/31/2025 1:05 PM EDT Plan of Treatment Upcoming Encounters Date Type Department Care Team (Late st Contact Info) Description 08/03/2025 1:00 PM EST Office Visit [facility] [address] [place] [address] Maddi Marina ANP [address] [place] [address] Health Maintenance Due Date Last Done Comments CT Colonography 1968 FIT DNA/Cologuard 1970 FOBT 1970 HIV Screening 1970 Sigmoidoscopy 1968 Hepatitis C Screening 1986 Pap Smear 1989 Zoster Vaccines (1 of 2) 2018 FIT 02/19/2022 02/19/2021 Colonoscopy 01/31/2025 01/31/2022 Colorectal Cancer Screening 01/31/2025 COVID-19 Vaccine ( season) 2025 Influenza Vaccine (#1) 2025 4, 07/02/2023, 07/14/2022, Additional history exists Alcohol/Substance Use Screening 08/18/2025 08/18/2024 Mammogram 01/03/2026 01/03/2025, 04/0 04/2025, 12/19/2024, Additional history exists Depression Screening 01/31/2026 01/31/2025, 02/01/20 Disability Screening 01/31/2026 01/31/2025 SDOH Screening 01/31/2026 01/31/2025 Tobacco Screening 01/31/2026 01/31/2025 Cervical Cancer Screening 10/30/2026 HPV/Cotest 10/30/2026 10/30/2021, 10/30/2021 DTaP/Tdap/Td Vaccines (3 - Td or Tdap) 12/28/2033 12/29/2023, 02/22/2013, 01/05/2006 RSV Patients and Patients Aged 60 years or older (1 - 1-dose 75+ series) 2043 Hepatitis B Vaccines Completed 12/20/2007, 09/14/2007, 08/12/2007 Pneumococcal Vaccine: 50+ Years Completed 01/31/2025, 06/09/2014 HIB Vaccines Aged Out No longer eligi [...] patient's age to complete this topic Meningococcal B Vaccine Aged Out No l onger eligible based on patient's age to complete [...] Name Priority Date/Time Associated Diagnosis Comments BI US BREAST LIMITED LEFT Routine 01/03/2025 9:45 AM EDT HM COLONOSCOPY Routine 01/31/2022 ZZZ HISTORICAL HPV E6/E7 RFLX YAMEL 16 18/45 Routine 10/30/2021 3:02 PM EST ZZZ HISTORICAL FECAL IMMUNOCHEMICAL TEST X1 (FIT) Routine 02/19/2021 12:00 AM EDT from Last 3 Months or Most Recently Relevant to Health Maintenance Results * BI US Breast Limited Left (01/03/2025 9:45 AM EDT) Anatomical Region Laterality Modality Breast Left Ultrasound 01/03/2025 9:45 AM EDT Narrative 01/03/2025 10:20 AM EDT [address] [place] [address] Ultrasound Report Signed Patient: Jesi Mena MR#: [id number] : 1970 Acct:[id number] Age/Sex: 54 / F ADM Date: 01/03/25 Loc: HO.MAMMO Attending Dr: Maddi Marina NP Ordering Physician: MADDI MARINA NP Date of Service: 01/03/25 Procedure(s): US breast LT limited mamm only Accession Number(s): [id number] cc: MADDI MARINA NP EXAMINATION: MM DIAGNOSTIC DIGITAL MAMMOGRAPHY, LEFT Limited left breast ultrasound. CLINICAL INFORMATION: Call back from screening for asymmetry in the inferior left breast on MLO view. COMPARISON: Mammography: Priors on PACS TECHNIQUE: Digital mammography is performed in craniocaudal and mediolateral oblique views along with computer-aided detection (CAD). FINDINGS: There are scattered areas of fibroglandular density (ACR BI-RADS breast composition Category b). Previously seen asymmetry in the inferior breast on MLO view does not persist on additional imaging projections and likely represented overlapping breast tissue the imaging appearance is not significantly changed from priors dating back to 2021. Suspicious calcifications or other abnormal findings. Targeted color Doppler ultrasound scanning in the left breast from 5-7 o'clock demonstrates normal fibronodular breast tissue. There is no sonographic abnormality. Results are provided to the patient at time of visit by the technologist. US/US breast LT limited mamm only IMPRESSION: No mammographic evidence of malignancy. ASSESSMENT: BI-RADS BI-RADS 1 - Negative RECOMMENDATION: 1 year F/U This patient's information was entered into a reminder system with a target due date for their next mammogram. Electronically signed by: Kelley Rascon DO 01/03/2025 10:18 AM EDT Dictated By: Kelley Rascon DO Signed By: <Electronically signed by Kelley Rascon DO in OV> 01/03/25 1018 DD/ 0945 TD/TT: 01/03/25 1000 Combination Machine Tender: Procedure Note Donotuseinterpreter, Image - 01/03/2025 [facility] [address] [place] [address] Ultrasound Report Signed Patient: Braeden Mena#: [id number] : 1970Acct:[id number] Age/Sex: 54 / FADM Date: 01/03/25 Loc: HO.MAMMO Attending Dr: Maddi Marina NP Ordering Physician: MADDI MARINA NP Date of Service: 01/03/25 Procedure(s): US breast LT limited mamm only Accession Number(s): [id number] cc: MADDI MARINA NP EXAMINATION: MM DIAGNOSTIC DIGITAL MAMMOGRAPHY, LEFT Limited left breast ultrasound. CLINICAL INFORMATION: Call back from screening for asymmetry in the inferior left breast on MLO view. COMPARISON: Mammography: Priors on PACS TECHNIQUE: Digital mammography is performed in craniocaudal and mediolateral oblique views along with computer-aided detection (CAD). FINDINGS: There are scattered areas of fibroglandular density (ACR BI-RADS breast composition Category b). Previously seen asymmetry in the inferior breast on MLO view does not persist on additional imaging projections and likely represented overlapping breast tissue the imaging appearance is not significantly changed from priors dating back to 2021. Suspicious calcifications or other abnormal findings. Targeted color Doppler ultrasound scanning in the left breast from 5-7 o'clock demonstrates normal fibronodular breast tissue. There is no sonographic abnormality. Results are provided to the patient at time of visit by the technologist. US/US breast LT limited mamm only IMPRESSION: No mammographic evidence of malignancy. ASSESSMENT: BI-RADS BI-RADS 1 - Negative RECOMMENDATION: 1 year F/U This patient's information was entered into a reminder system with a target due date for their next mammogram. Electronically signed by: Kelley Rascon DO 01/03/2025 10:18 AM EDT Dictated By: Kelley Rascon DO Signed By: <Electronically signed by Kelley Rascon DO in OV> 01/03/25 1018 DD/ 0945 TD/TT: 01/03/25 1000 Combination Machine Tender: us Maddi Marina ANP IMG US PROCEDURES Final Result * Hm Colonoscopy (01/31/2022) Colonoscopy Normal Normal us Historical Provider HEALTH MAINTENANCE Final Result * HPV E6/E7 RFLX YAMEL 16 18/45 (10/30/2021 3:02 PM EST) HPV 16 RNA [facility] HPV 18/45 RNA [facility] HPV E6 E7 ADD [facility] HPV mRNA E6/E7 rflx Not Detected Not Detected [facility] Comment: Methodology: Bank Sales And Service Manager-Mediated Amplification This assay detects E6/E7 viral messenger RNA (mRNA) from 14 high-risk HPV types (16,18,31,33,35,39,45,51,52,56,58,59,66,68). The analytical performance characteristics of this assay have been determined by [facility]. The modifications have not been cleared or approved by the FDA. This assay has been validated pursuant to the CLIA regulations and is used for clinical purposes. For additional information, please refer to http://education.[employer].Enverv/faq/JJE766a3 (This link if provided for information/ educational purposes only.) THIS TEST WAS PERFORMED AT: [facility] [address] [place] [address] [address],[place] [address] MAHIN INMAN MD 10/30/2021 3:02 PM EST us Justine Moreno HISTORICAL/NON ORDERABLE LABS Fi nal Result [facility] [address] [place] [address], * Fecal immunochemical test x1 (FIT) (02/19/2021 12:00 AM EDT) FIT Date 1 02/18/21 [facility] FIT Date 2 02/19/21 [facility] FIT Lot [id number] [facility] FIT1 NEGATIVE NEGATIVE [facility] FIT2 NEGATIVE NEGATIVE [facility] 02/19/2021 us Historical Provider HISTORICAL/NON ORDERABLE LABS Final Result [facility] [address] from Last 3 Months or Most Recently Relevant to Health Maintenance [facility] Care Teams Key Account Representative Relationship Specialty Start Date End Date Maddi Marina ANP [address] [place] [address] PCP - General Family Medicine 11/14/20
--- OUTSIDE RECORDS SUMMARY | 2025-06-28 15:40 | XMS_ITS | Encounter Summary ---
Author Organization [employer] Address [address] [facility] [address] [place] [address] Care Team Providers Care Occupational Therapy Asst Name Role Phone Ronit Hernandez Primary Care Provider [phone] Encounter Details Date Type Department Care Team (Late st Contact Info) Description 12/05/2022 Abstract [facility] [address] [place] [address] [phone] Ronit Hernandez ANP [address] [place], [place] [phone] Social History Tobacco Use Types Packs/Day Years [...] Description 08/03/2025 1:00 PM EST Office Visit [facility] [address] [place] [address] [phone] Ronit Hernandez ANP [address] [place] [address] documented as of this encounter Procedures Procedure Name Priority Date/Time Associated Diagnosis Comments MAMMOGRAPHY Routine 12/01/2022 4:22 PM EST documented in this encounter Results * Mammography (12/01/2022 4:22 PM EST) Mammogram Bi Rad1 Negative Anatomical Region Laterality Modality Other us Historical Provider HEALTH MAINTENANCE Final Result documented in this encounter Visit Diagnoses Not on filedocumented in this encounter Care Teams Occupational Therapy Asst Relationship Specialty Start Date End Date Ronit Hernandez ANP [address] [place] [address] PCP - General Family Medicine 11/14/20 documented as of this encounter
== END 2025-06-28 15:18 | disposition home or self-care (01) ==
LOC: HO.HSM 14:30
PROVIDERS: PCP Nurse Practitioner Family; Visit Provider Psychiatry & Neurology Neurology
DX: G43.009 Migraine without aura, not intractable, without status migrainosus (principal); M79.7 Fibromyalgia
CPT/HCPCS: 99214

== ENCOUNTER → 2025-06-28 14:30 | Outpatient (BNVA) | payer MEDICAID, SELFPAY | PROVIDERS: PCP Nurse Practitioner Family; Visit Provider Psychiatry & Neurology Neurology | DX: G43.009 Migraine without aura, not intractable, without status migrainosus (principal); M79.7 Fibromyalgia | CPT/HCPCS: 99212 ==

== ENCOUNTER 2025-07-13 13:29 | Outpatient (AMB) | payer MEDICAID, SELFPAY ==
--- NOTE | 2025-07-13 13:56 | A.OFFVIS_ITS ---
Vital Signs 07/13/25 13:57 Height 5 ft 1 in Weight 145 lb 8.081 oz BMI 27.5 BP 120/80 Blood Pressure Location Lt brachial Position Sitting Pulse 94 Intake Visit Reasons: Follow up Intake Note: Follow-up with ekg c/o lung pain on left side Snuff Packing Machine Operator Required: No Allergies amitriptyline (AMITRIPTYLINE) Allergy (Unknown, Verified 08/11/24 12:41) ANGER aspirin (ASPIRIN) Allergy (Unknown, Verified 08/11/24 12:41) HIVES AND NAUSEA azithromycin (AZITHROMYCIN) Allergy (Unknown, Verified 08/11/24 12:41) HIVES AND NAUSEA doxycycline Allergy (Unknown, Verified 08/11/24 12:41) Hives, nausea erythromycin base (ERYTHROMYCIN BASE) Allergy (Unknown, Verified 08/11/24 12:41) Nausea and Vomiting fluticasone (From FLOVENT DISKUS) Allergy (Unknown, Verified 08/11/24 12:41) BLISTERS IN MOUTH ibuprofen (IBUPROFEN) Allergy (Unknown, Verified 08/11/24 12:41) HIVES, HEADACHE ifosfamide Allergy (Unknown, Verified 08/11/24 12:41) Unknown loratadine (Claritin) Allergy (Unknown, Verified 08/11/24 12:41) Headache pantoprazole (Protonix) Allergy (Unknown, Verified 08/11/24 12:41) Nausea and Vomiting Sulfa (Sulfonamide Antibiotics) Allergy (Unknown, Verified 08/11/24 12:41) Hives and Nausea sulfamethoxazole (From BACTRIM) Allergy (Unknown, Verified 08/11/24 12:41) HIVES AND NAUSEA trimethoprim (From BACTRIM) Allergy (Unknown, Verified 08/11/24 12:41) HIVES AND NAUSEA zafirlukast (From ACCOLATE) Allergy (Unknown, Verified 08/11/24 12:41) HIVES AND NAUSEA cephalexin Allergy (Unknown, Uncoded 01/29/24 12:59) Unknown ethylsuccinate Allergy (Unknown, Uncoded 01/29/24 12:59) Unknown Fluoxetine Allergy (Unknown, Uncoded 01/29/24 12:59) Unknown fluticasone Allergy (Unknown, Uncoded 01/29/24 12:59) Unknown Folastin Allergy (Unknown, Uncoded 01/29/24 12:59) Unknown FOLEX Allergy (Unknown, Uncoded 01/29/24 12:59) HIVES AND NAUSEA furoate Allergy (Unknown, Uncoded 01/29/24 12:59) Unknown mometasone Allergy (Unknown, Uncoded 01/29/24 12:59) Unknown ofloxacin Allergy (Unknown, Uncoded 01/29/24 12:59) Unknown omeprazole Allergy (Unknown, Uncoded 01/29/24 12:59) Unknown penicillins Allergy (Unknown, Uncoded 01/29/24 12:59) Hives propionate Allergy (Unknown, Uncoded 01/29/24 12:59) Unknown Symbicort Allergy (Unknown, Uncoded 01/29/24 12:59) Unknown Medication List - Last Reconciled 07/13/25 by Timoteo Blanton MD acetaminophen 500 mg PO Q6H PRN albuterol sulfate 90 mcg/actuation (Proventil HFA) 1 puff inhalation QID PRN jhlyzeyjwv-nqhjmmmeormxx-klnl 50-325-40 mg 2 tabs PO DAILY PRN cetirizine 10 mg PO QAM cholecalciferol (vitamin D3) (Vitamin D3) 50 mcg PO DAILY dicyclomine 20 mg PO TID PRN 30 days Lactobacillus acidophilus (Probiotic) 10,000 mmu cells PO DAILY lansoprazole 30 mg PO BID 90 days linaclotide (Linzess) 145 mcg PO QAM 30 days lorazepam (Ativan) 0.5 mg PO BID PRN meclizine 25 mg PO DAILY PRN nortriptyline 100 mg (2 x 50 mg) PO BEDTIME propranolol 20 mg PO BID simethicone (Mylanta Gas) 125 mg PO QID PRN 30 days HPI Comments Details: Jesi comes for follow-up after a very long gap. She had an echocardiogram last year which showed bicuspid aortic valve with low normal LV EF with multiple wall motion abnormality in RCA territory. She had bicuspid aortic valve with mild aortic stenosis on that echocardiogram. She was subsequently had not had a follow-up but was recommended a CTA but she did not pursue that because she has history of allergic reaction to the contrast in the past. She comes for follow- up today. She has no active cardiac complaints. Denies any exertional chest pain although she says she is limited because when she exercises her asthma acts up. She has occasional symptoms of palpitations. She has no prolonged irregular heartbeat. No lightheadedness, syncope. No orthopnea, PND, leg edema. [facility] Medical History Anxiety disorder Fasting hyperglycemia Vertigo Pancytopenia Hypoglycemia History of tachycardia Allergic rhinitis Kidney stones Inappropriate sinus node tachycardia Bicuspid aortic valve Aortic stenosis Migraine Fibromyalgia IBS (irritable bowel syndrome) GERD (gastroesophageal reflux disease) Asthma Depression Anxiety Mitral and aortic regurgitation Surgical History Hx of tubal ligation History of loop electrical excision procedure (LEEP) Hx of ovarian cystectomy History of eye surgery Hx of dilation and curettage History of left knee surgery History of appendectomy History of esophagogastroduodenoscopy (EGD) Family History Father Larynx cancer Mother CVD (cardiovascular disease) Stroke Maternal Grandmother Ovarian cancer Colon cancer Family/Other History of breast cancer Social History Household Members: Spouse Housing: House Are you a primary customer care professional to a significant other at home: No Do you presently have visiting nurse or other home services: No Alcohol intake: never Comment: mild cramping Patient Tobacco Use Status: Never used Tobacco service: No Current occupational status: disabled Sexual orientation: Straight/Heterosexual Gender identity: Female Review of Systems Const Denies chills, Denies fatigue, Denies fever(s), Denies frequent falls, Denies weakness, Denies weight gain and Denies weight loss ENT Denies dizziness Card Denies chest pain, Denies leg edema, Denies lightheadedness, Denies palpitations, Denies dyspnea, Denies dyspnea on exertion, Denies orthopnea and Denies other (loss of consciousness) Resp Denies cough, Denies dyspnea and Denies dyspnea on exertion GI Denies hematochezia and Denies change in stool character Musc Denies abnormal gait, Denies muscle weakness, Denies numbness, Denies radiating pain into limb and Denies tingling Neuro Denies abnormal gait, Denies dizziness, Denies frequent falls, Denies numbness, Denies tingling and Denies weakness Endo Denies fatigue and Denies palpitations Physical Exam Vital Signs: Last Vital Signs Pulse 94 07/13/25 13:57 BP 120/80 07/13/25 13:57 BMI result Body Mass Index 27.5 Const General: cooperative, healthy appearing, comfortable and no acute distress Orientation/consciousness: patient oriented x3 Neck Neck: Yes normal visual inspection and Yes no JVD Carotids: normal carotid upstroke Resp Effort & Inspection: normal respiratory effort Auscultation: clear to auscultation bilaterally, no crackles, no rales, no rhonchi and no wheezes Cardio Jugular venous distension: no JVD Rate: regular rate Rhythm: regular rhythm Heart sounds: S1 normal heart sound present, S2 normal heart sound present, Clicking heart sound present, no gallops, no murmurs and no rubs Peripheral pulses: Peripheral pulses 2+ throughout GI Inspection: Yes distended Neuro General: patient oriented x3 Extrem General: Yes normal to inspection, No no pedal edema and No calf tenderness Office Procedures EKG Details: EKG shows normal sinus rhythm with nonspecific STT wave changes 28317-Gnusjbtxexeuapmaj, Complete Assessment & Plan Assessment & Plan (1) Bicuspid aortic valve: Code(s): Q23.1 - Congenital insufficiency of aortic valve Category: Medical Plan: Bicuspid aortic valve with mild aortic stenosis in this middle-aged female without any significant abnormal findings of progressive aortic stenosis. However she had an echocardiogram which showed multiple wall motion abnormality in RCA territory. Not sure if this was probably false positive. Will suggest repeat echocardiogram. If she has persistent wall motion abnormality will need further testing including coronary CTA which can be done with help of anti allergy medicines. This was discussed with her. Will follow up after echocardiogram. Meanwhile no interventions required on the aortic valve. Continue low-dose aspirin therapy. Continue blood pressure control. (2) Inappropriate sinus node tachycardia: Code(s): R00.0 - Tachycardia, unspecified Category: Medical Plan: Prior history of inappropriate sinus tachycardia. Currently heart rate is well controlled on propranolol therapy. Continue the same. Rare symptoms of palpitations. Stress mitigation strategies were discussed. Treatment for anxiety will also help with her management. Avoidance of stimulants was discussed. Will follow up in the clinic in 2 years time, sooner p.r.n.. Thank you for allowing me to partake in her care Orders: Orders CA echo transthoracic complete Today R93.1 - Abnormal findings on diagnostic imaging of heart and coronary circulation Coding Level of Care Code Est Pt Level 4 (33144) Complex EM visit Add On G2211 Diagnoses Bicuspid aortic valve Q23.1 Inappropriate sinus node tachycardia R00.0 CPT Codes EKG - CPT: 73742-Mpkhukrhxkxaoiool, Complete ([id number])
[2025-07-13 13:57] VITALS: BP 120/80; PULSE 94; BMI 27.5
--- OUTSIDE RECORDS SUMMARY | 2025-07-13 16:57 | XMS_ITS | Clinical Summary ---
Author Organization [employer] Address [address] [facility] [address] [place] [address] Care Team Providers Care Occupational Medicine Physician Name Role Phone Maddi Marina YULISA Primary Care Provider [phone] Allergies Active Allergy Reactions Criticality Noted Date [...] and at bedtime. 2 Active sodium chloride ([place]) 0.65 % nasal sprayIndications: Acute non-recurrent frontal [...] Type Department Care Team Description 05/30/2025 Telephone [facility] [address] [place] [phone] Maddi Marina ANP July recall from [...] Description 08/03/2025 1:00 PM EST Office Visit [facility] [address] [place] [address] Maddi Marina ANP [address] [place] [address] Health Maintenance Due Date Last Done Comments [...] AM EDT Narrative 01/03/2025 10:20 AM EDT [address] [place] [address] Ultrasound Report Signed Patient: Jesi Mena MR#: [id number] : 1970 Acct:[id number] Age/Sex: 54 / F ADM Date: 01/03/25 Loc: HO.MAMMO Attending Dr: Maddi Marina NP Ordering Physician: MADDI MARINA NP Date of Service: 01/03/25 Procedure(s): US breast LT limited mamm only Accession Number(s): [id number] cc: MADDI MARINA NP EXAMINATION: MM DIAGNOSTIC [...] 01/03/25 1018 DD/ 0945 TD/TT: 01/03/25 1000 Traffic Signal Supervisor Maintenance: Procedure Note Donotuseinterpreter, Image - 01/03/2025 [facility] [address] [place] [address] Ultrasound Report Signed Patient: Braeden Mena#: [id number] : 1970Acct:[id number] Age/Sex: 54 / FADM Date: 01/03/25 Loc: HO.MAMMO Attending Dr: Maddi Marina NP Ordering Physician: MADDI MARINA NP Date of Service: 01/03/25 Procedure(s): US breast LT limited mamm only Accession Number(s): [id number] cc: MADDI MARINA NP EXAMINATION: MM DIAGNOSTIC [...] 01/03/25 1018 DD/ 0945 TD/TT: 01/03/25 1000 Traffic Signal Supervisor Maintenance: us Maddi Marina ANP IMG US PROCEDURES [...] Not Detected [facility] Comment: Methodology: Stripping Cutter And Winder-Mediated Amplification This assay detects E6/E7 viral messenger RNA (mRNA) from 14 high-risk HPV types (16,18,31,33,35,39,45,51,52,56,58,59,66,68). The analytical performance characteristics of this assay have been determined by [employer]. The modifications have not been cleared or approved by the FDA. This assay has been validated pursuant to the CLIA regulations and is used for clinical purposes. For additional information, please refer to http://education.Aneumed.VDP/faq/KAE980b6 (This link if provided for information/ educational purposes only.) THIS TEST WAS PERFORMED AT: [facility] [address] [place] [address] [address]LO[address] [address] MAHIN INMAN MD 10/30/2021 3:02 PM EST us Justine Moreno HISTORICAL/NON ORDERABLE LABS Fi nal Result [facility] [address] [place] [address], * Fecal immunochemical test x1 (FIT) (02/19/2021 12:00 AM EDT) FIT Date 1 02/18/21 [facility] FIT Date 2 02/19/21 [facility] FIT Lot [id number] [facility] FIT1 NEGATIVE NEGATIVE [facility] FIT2 NEGATIVE NEGATIVE [facility] 02/19/2021 us Historical Provider HISTORICAL/NON ORDERABLE LABS Final Result [facility] [address] from Last 3 Months or Most Recently Relevant to Health Maintenance [facility] Care Teams Occupational Medicine Physician Relationship Specialty Start Date End Date Maddi Marina ANP [address] [place] [address] PCP - General Family Medicine 11/14/20
--- OUTSIDE RECORDS SUMMARY | 2025-07-13 16:57 | XMS_ITS | Encounter Summary ---
Author Organization [facility] [facility] Address [address] [facility] 7t [place] [address] Care Team Providers Care Risk Engineer Name Role Phone Ronit Hernandez Primary Care Provider [phone] Reason for Visit * Reason Comments Med Refill Encounter Details Date Type Department Care Team (Late st Contact Info) Description 01/29/2023 Refill [facility] [address] [place] [address] [phone] oRnit Hernandez ANP [address] [place], [place] [phone] Social History Tobacco Use Types Packs/Day Years [...] Description 08/03/2025 1:00 PM EST Office Visit [facility] [address] [place] [address] [phone] Ronit Hernandez ANP [address] [place], [place] [phone] documented as of this encounter Visit Diagnoses Not on filedocumented in this encounter Care Teams Risk Engineer Relationship Specialty Start Date End Date Ronit Hernandez ANP [address] [place] [address] PCP - General Family Medicine 11/14/20 documented as of this encounter
--- OUTSIDE RECORDS SUMMARY | 2025-07-13 16:57 | XMS_ITS | Encounter Summary ---
Author Organization [employer] Address [address] [facility] [address]t [place] [address] Care Team Providers Care Child Welfare Specialist Name Role Phone Ronit Hernandez Primary Care Provider [phone] Encounter Details Date Type Department Care Team (Late st Contact Info) Description 12/05/[address] [facility] [address] [place] [address] [phone] Ronit Hernandez ANP [address] [place], [place] [phone] Social History Tobacco Use Types Packs/Day Years [...] Description 08/03/2025 1:00 PM EST Office Visit [facility] [address] [place] [address] [phone] Ronit Hernandez ANP [address] [place] [address] documented as of this encounter Procedures Procedure Name Priority Date/Time Associated Diagnosis Comments MAMMOGRAPHY Routine 12/01/2022 4:22 PM EST documented in this encounter Results * Mammography (12/01/2022 4:22 PM EST) Mammogram Bi Rad1 Negative Anatomical Region Laterality Modality Other us Historical Provider HEALTH MAINTENANCE Final Result documented in this encounter Visit Diagnoses Not on filedocumented in this encounter Care Teams Child Welfare Specialist Relationship Specialty Start Date End Date Ronit Hernandez ANP [address] [place] [address] PCP - General Family Medicine 11/14/20 documented as of this encounter
== END 2025-07-13 14:17 | disposition home or self-care (01) ==
LOC: HO.HCS 13:30
PROVIDERS: PCP Nurse Practitioner Family; Visit Provider Internal Medicine Cardiovascular Disease
DX: Q23.1 Congenital insufficiency of aortic valve (principal); R00.0 Tachycardia, unspecified
CPT/HCPCS: 93010; 99214

== ENCOUNTER → 2025-07-13 13:29 | Outpatient (BNVA) | payer MEDICAID, SELFPAY | PROVIDERS: PCP Nurse Practitioner Family; Visit Provider Internal Medicine Cardiovascular Disease | DX: Q23.81 Bicuspid aortic valve (principal); R00.0 Tachycardia, unspecified | CPT/HCPCS: 93005; 99212 ==

== ENCOUNTER 2025-08-09 16:22 | Outpatient (REF) | payer MEDICAID, SELFPAY ==
--- OUTSIDE RECORDS SUMMARY | 2025-08-09 14:00 | XMS_ITS | Encounter Summary ---
Author Organization [employer] Address [address] [facility] [address] [place] [address] Care Team Providers Care Inside Polisher Name Role Phone Ronit Hernandez Primary Care Provider [phone] Reason for Referral * Imaging (Routine) - Authorized Specialty Diagnoses / Procedures Referred By Contac t Referred To Contact Radiology Diagnoses Hematuria, unspecified type Suprapubic pressure Urination frequency Procedures US Pelvis Limited Bladder Name, MD Virgil [address] [place] [address] Phone: tel: fax: [address] Phone: tel: fax: Referral ID Status Reason Start Date Expiration Date V isits Requested Visits Authorized [id number] Authorized 08/09/2025 08/09/2026 1 1 * Imaging (Routine) - Authorized Specialty Diagnoses / Procedures Referred By Contac t Referred To Contact Radiology Diagnoses Hematuria, unspecified type Suprapubic pressure Urination frequency Procedures US Renal Complete NameVirgil MD [address] [place] [address] Phone: tel: fax: [address] Phone: tel: fax: Referral ID Status Reason Start Date Expiration Date V isits Requested Visits Authorized [id number] Authorized 08/09/2025 08/09/2026 1 1 Reason for Visit * Reason Comments Blood in Urine Encounter Details Date Type Department Care Team (Late st Contact Info) Description 08/09/2025 2:00 PM EST Office Visit [facility] [address] [place] [phone] Name, MD Virgil [address] [place] [address] Hematuria, unspecified type (Primary Dx); Suprapubic pressure; Urination frequency; History of kidney stones; Chills Social History Tobacco Use Types Packs/Day Years Used Date Smoking Tobacco: Never Passive Smoke Exposure: Never Smokeless Tobacco: Never Alcohol Use Standard [...] AM EDT documented as of this encounter Last Filed Vital Signs Vital Sign Reading Time Taken Comments Blood Pressure 109/72 08/09/2025 2:17 PM EST Pulse 85 08/09/2025 2:17 PM EST Temperature 36.5 C (97.7 F) 08/09/2025 2:17 PM EST Respiratory Rate 16 08/09/2025 2:17 PM EST Oxygen Saturation 97% 08/09/2025 2:17 PM EST Inhaled Oxygen Concentration - - Weight 66.4 kg (146 lb 6.4 oz) 08/09/2025 2:17 P M EST Height 154.9 cm (5' 1 ) 08/09/2025 2:17 PM EST Body Mass Index 27.66 08/09/2025 2:17 PM EST documented in this encounter Progress Notes * Virgil Coffman MD - 08/09/2025 2:00 PM EST Subjective Patient ID: Jesi Mena is a 55 y.o. female who presents for Blood in Urine. Patient comes for a sick visit. She is having urinary symptoms since yesterday. She describes suprapubic pressure, costovertebral angle discomfort, dysuria, urinary frequency. This morning she started to have gross hematuria. The patient is postmenopausal. She is not sexually active. She has a personal history of kidney stones. She is afebrile during her visit. She is allergic to numerous antibiotics. Review of Systems Constitutional: Negative for chills and fever. HENT: Negative for sore throat. Respiratory: Negative for cough, shortness of breath and wheezing. Cardiovascular: Negative for chest pain, palpitations and leg swelling. Gastrointestinal: Negative for abdominal pain. Genitourinary: Negative for vaginal discharge. See HPI Objective Vitals: 08/09/25 1417 BP: 109/72 BP Location: Left arm Patient Position: Sitting BP Cuff Size: Large adult Pulse: 85 Resp: 16 Temp: 97.7 ??F (36.5 ??C) TempSrc: Temporal SpO2: 97% Weight: 146 lb 6.4 oz (66.4 kg) Height: 5' 1 (1.549 m) Physical Exam Constitutional: Appearance: Normal appearance. Cardiovascular: Rate and Rhythm: Normal rate and regular rhythm. Heart sounds: No murmur heard. No gallop. Pulmonary: Effort: Pulmonary effort is normal. No respiratory distress. Breath sounds: Normal breath sounds. No wheezing. Abdominal: Comments: Mild discomfort on deep palpation of the suprapubic area. Mild discomfort on light percussion of the costovertebral angle Musculoskeletal: Right lower leg: No edema. Left lower leg: No edema. Neurological: Mental Status: She is alert. Urine dipstick today showed leukocytes and blood. Assessment/Plan Diagnoses and all orders for this visit: Hematuria, unspecified type Comments: Possible UTI, or kidney stones or both. I will treat with Macrobid because of her multiple allergies. She is encouraged to drink lots of water. Evaluation with ultrasound of the kidneys and bladder. Evaluation with blood work listed below. Further recommendation based on her response and the results of testing ordered today. Orders: - POCT Urinalysis - Urinalysis, Complete, with Reflex to Culture; Future - Basic Metabolic Panel; Future - US Renal Complete; Future - US Pelvis Limited Bladder; Future Suprapubic pressure - Basic Metabolic Panel; Future - US Renal Complete; Future - US Pelvis Limited Bladder; Future - CBC auto differential; Future Urination frequency - Basic Metabolic Panel; Future - US Renal Complete; Future - US Pelvis Limited Bladder; Future - CBC auto differential; Future History of kidney stones - CBC auto differential; Future Chills - CBC auto differential; Future Other orders - nitrofurantoin, macrocrystal-monohydrate, (Macrobid) 100 MG capsule; Take 1 capsule (100 mg) by mouth 2 times daily for 5 days. No future appointments. documented in this encounter Plan of Treatment Scheduled Orders Name Type Priority Associated Diagnoses Orde r Schedule Basic Metabolic Panel Lab Routine Hematuria, unspecified type Suprapubic pressure Urination frequency Expected: 08/09/2025 (Approximate), Expires: 08/09/2026 US Renal Complete Imaging Routine Hematuria, unspecified type Suprapubic pressure Urination frequency Expected: 08/09/2025, Expires: 08/09/2026 US Pelvis Limited Bladder Imaging Routine Hematuria, unspecified type Suprapubic pressure Urination frequency Expected: 08/09/2025, Expires: 08/09/2026 CBC auto differential Lab Routine Suprapubic pressure Urination frequency History of kidney stones Chills Expected: 08/09/2025 (Approximate), Expires: 08/09/2026 documented as of this encounter Procedures Procedure Name Priority Date/Time Associated Diagnosis Comments POCT URINALYSIS DIPSTICK Routine 08/09/2025 2:38 PM EST Hematuria, unspecified type URINALYSIS, COMPLETE, WITH REFLEX TO CULTURE Routine 08/09/2025 2:28 PM EST Hematuria, unspecified type documented in this encounter Results * (ABNORMAL) POCT Urinalysis (08/09/2025 2:38 PM EST) Color, UA Dark Ruthy Clarity, UA Cloudy Glucose, UA Negative Bilirubin, UA Negative Ketones, UA Negative Spec Grav, UA 1.010 Blood, UA Positive(A) Negative, None Detected Comment:large pH, UA 5.5 Protein, UA Many Comment:30 mg/dL Urobilinogen, UA 0.2 Leukocytes, UA Many(A) Negative, Rare, Trace Comment:large Nitrite, UA Negative Negative, None Detected Appearance, UA dark yellow QC Media Lot # [id number] Lot# Expiration Date [id number] Urine (Urine, Random) 08/09/2025 2:38 PM EST us Virgil Name POINT OF CARE TEST ENTER/EDIT OR DERABLES Final Result * (ABNORMAL) Urinalysis, Complete, with Reflex to Culture (08/09/2025 2:28 PM EST) Color Urine Yellow [facility] Appearance Urine Turbid [facility] PH 5.5 5.0 - 9.0 [facility] Glucose Urine UA Negative Negative mg/dL [facility] Urine Blood Large (3+)(A) Negative [facility] Specific [place] - Urine <=1.005 1.005 - 1.025 [facility] Urine Protein 30 (1+)(A) Neg-Trace mg/dL [facility] Urine Ketones Negative Negative mg/dL [facility] Nitrite Urine Negative Negative [facility] Leukocyte Esterase Urine Large (3+)(A) Negative [facility] RBC Urine 11-20(A) 0 - 2 /HPF [facility] Urine WBC >50(A) 0 - 5 /HPF [facility] Urine Squamous Epithelial Cell 0-2 0 - 2 /HPF [facility] Urine Bacteria None Seen None Seen [facility] Hyaline Casts, Urine 0-2 0 - 2 /LPF [facility] Urine 08/09/2025 2:28 PM EST 08/09/2025 4:23 PM EST Narrative [facility] - 08/09/2025 4:31 PM EST Urine, Clean Catch us Virgil Name LAB URINE ORDERABLES Final Resul t Performing Organization Address City/State/[facility] Co de Phone Number [facility] [address] [place] [address] [phone] documented in this encounter Visit Diagnoses Diagnosis Hematuria, unspecified type- Primary Suprapubic pressure Urination frequency Urinary frequency History of kidney stones Chills Chills (without fever) documented in this encounter Additional Health Concerns Assessment Noted Time PHQ-9 Depression Total Score: 7 02/01/20 25 1:31 PM EDT documented as of this encounter Care Teams Inside Polisher Relationship Specialty Start Date End Date Ronit Hernandez ANP [address] [place] [address] PCP - General Family Medicine 11/14/20 documented as of this encounter
[2025-08-09 16:27] LABS: Appearance Urine Turbid; Glucose Urine UA Negative (Negative); PH 5.5 (5.0-9.0); Specific Gravity - Urine <= 1.005 (1.005-1.025); UMIC TRIGGER UACC YES
[2025-08-09 16:31] LABS: UACC Culture Trigger YES
--- OUTSIDE RECORDS SUMMARY | 2025-08-09 19:02 | XMS_ITS | Clinical Summary ---
Author Organization [employer] Address 75 [facility] 7t [place] [address] Care Team Providers Care Bilingual Executive Assistant Name Role Phone Maddi Marina YULISA Primary Care Provider [phone] Allergies Active Allergy Reactions Criticality Noted Date [...] at bedtime. 07/24/20 22 Active sodium chloride ([place]) 0.65 % nasal sprayIndications :Acute non-recurrent frontal [...] dizziness. 30 tablet 1 07/21/20 23 Active acetaminophen (Tylenol Extra Strength) 500 MG tabletIndication s:Migraine without status migrainosus, not intractable, unspecified migraine type 1-2 tabs as needed for headache 90 tablet 1 07/29/20 24 Active Ventolin HFA 108 (90 Base) MCG/ACT inhalerIndicatio ns:Mild persistent asthma without complication INHALE 2 PUFFS BY MOUTH EVERY 6 HOURS NEEDED FOR WHEEZING OR SHORTNESS OF BREATH 18 g 1 12/27/19 25 Active Blood Glucose Monitoring Suppl (FreeStyle Lite) w/Device kitIndications:I mpaired glucose tolerance 1 each Once per day. 1 kit 02/01/20 25 Active D3 Super Strength 50 MCG (2000 UT) capsule TAKE 1 CAPSULE BY MOUTH EVERY DAY 90 capsule 3 02/10/20 25 Active cetirizine (ZyrTEC) 10 MG tabletIndication s:Acute laryngitis TAKE 1 TABLET BY MOUTH EVERY DAY IN THE MORNING 90 tablet 1 07/26/20 25 Active acetic acid-hydrocortis one (Vosol-HC) otic solutionIndicati ons:Acute otitis externa of right ear, unspecified type Administer 3 drops into the right ear 3 times daily for 7 days. 10 mL 08/03/20 25 025 Active nitrofurantoin, macrocrystal-mon ohydrate, (Macrobid) 100 MG capsule Take 1 capsule (100 mg) by mouth 2 times daily for 5 days. 10 capsule 5 3:23 PM EST 08/09/20 25 025 Active cetirizine (ZyrTEC) 10 MG tabletIndication s:Acute laryngitis TAKE 1 TABLET BY MOUTH EVERY DAY IN THE MORNING 90 tablet 1 02/01/20 25 025 Discontinued Active Problems Problem Noted Date [...] Encounters Date Type Department Care Team Description 08/09/2025 2:00 PM EST Office Visit [facility] [address] [place] [phone] Virgil Coffman MD Hematuria, unspecified type (Primary Dx); Suprapubic pressure; Urination frequency; History of kidney stones; Chills 08/09/2025 Travel 08/03/2025 1:00 PM EST Office Visit [facility] [address] [place] [phone] Maddi Marina ANP Impaired glucose tolerance (Primary Dx); Mild persistent asthma without complication; Aortic stenosis with bicuspid valve; Adenomatous polyp of colon, unspecified part of colon; Encounter for immunization; Acute otitis externa of right ear, unspecified type; Pilonidal cyst; Dietary counseling; Exercise counseling 08/03/2025 Travel 07/31/2025 Telephone [facility] [address] [place] [phone] Maddi Marina ANP chart prep 07/27/2025 Patient Outreach [facility] [address], [place] [phone] Maddi Marina ANP Pre-visit Planning (SDOH was already completed ) 07/24/2025 Refill [facility] [address] [place] [address] [phone] Maddi Marina ANP Acute laryngitis 05/30/[address] [address] Maddi Marina ANP July recall from Last 3 Months Immunizations Immunization Administration Dates Next Due Hep B, adult 12/20/2007,09/14/2007,08/12/2007 Influenza Injectable Quadriv alant Preservative Free IIV4 MDCK 07/14/2022,08/19/2021 Influenza injectable quadriv alent IIV4 with preservative 06/24/2018,06/17/2017,06/15/2015 Influenza injectable quadriv alent preservative free 07/02/2023,06/14/2020,06/20/2019,07/03 Influenza, IIV3, injectable 06/09/2014, 1 Influenza, Split (incl. chinmay fied surface antigen) 06/07/2013,07/14/2012 Influenza, seasonal, injecta ble, preservative free 08/03/2025,07/29/2024 Pneumococcal Conjugate PCV 20 01/31/2025 Pneumococcal Polysaccharide [...] Mass Index 27.66 08/09/2025 2:17 PM EST Plan of Treatment Health Maintenance Due Date Last Done Comments CT Colonography 1968 FIT DNA/Cologuard 1968 FOBT 1968 HIV Screening 1970 Sigmoidoscopy 1968 Hepatitis C Screening 1986 Pap Smear 1989 RSV Patients and Patients Aged 60 years or older (1 - Risk 50-74 years 1-dose series) 2018 Zoster Vaccines (1 of 2) 2018 FIT 02/19/2022 02/19/2021 Colonoscopy 01/31/2025 01/31/2022 Colorectal Cancer Screening 01/31/2025 COVID-19 Vaccine ( season) 2025 Alcohol/Substance Use Screening 08/18/2025 08/18/2024 Mammogram 01/03/2026 01/03/2025, 04/0 04/2025, 12/19/2024, Additional history exists Depression Screening 01/31/2026 01/31/2025, 02/01/20 Disability Screening 01/31/2026 01/31/2025 SDOH Screening 01/31/2026 01/31/2025 Tobacco Screening 08/03/2026 08/03/2025 Cervical Cancer Screening 10/30/2026 HPV/Cotest 10/30/2026 10/30/2021, 10/30/2021 DTaP/Tdap/Td Vaccines (3 - Td or Tdap) 12/28/2033 12/29/2023, 02/22/2013, 01/05/2006 Hepatitis B Vaccines Completed 12/20/2007, 09/14/2007, 08/12/2007 Pneumococcal Vaccine: 50+ Years Completed 01/31/2025, 06/09/2014 Influenza Vaccine Completed 08/03/2025, , 07/02/2023, Additional history exists HIB Vaccines Aged Out [...] 08/09/2025 2:28 PM EST Hematuria, unspecified type BI US BREAST LIMITED LEFT Routine 01/03/2025 9:45 AM EDT HM COLONOSCOPY Routine 01/31/2022 ZZZ HISTORICAL HPV E6/E7 RFLX YAMEL 16 18/45 Routine 10/30/2021 3:02 PM EST ZZZ HISTORICAL FECAL IMMUNOCHEMICAL TEST X1 (FIT) Routine 02/19/2021 12:00 AM EDT from Last 3 Months or Most Recently Relevant to Health Maintenance Results * (ABNORMAL) POCT Urinalysis (08/09/2025 2:38 [...] Urine (Urine, Random) 08/09/2025 2:38 PM EST Virgil Name POINT OF CARE TEST ENTER/EDIT OR DERABLES Final Result * (ABNORMAL) Urinalysis, Complete, with Reflex to Culture (08/09/2025 2:28 PM EST) Color Urine Yellow [facility] Appearance Urine Turbid [facility] PH 5.5 5.0 - 9.0 [facility] Glucose Urine UA Negative Negative mg/dL [facility] Urine Blood Large (3+)(A) Negative [facility] Specific [place] - Urine <=1.005 1.005 - 1.025 [facility] Urine Protein 30 (1+)(A) Neg-Trace mg/dL [facility] Urine Ketones Negative Negative mg/dL [facility] Nitrite Urine Negative Negative [facility] Leukocyte Esterase Urine Large (3+)(A) Negative [facility] RBC Urine 11-20(A) 0 - 2 /HPF [facility] Urine WBC >50(A) 0 - 5 /HPF [facility] Urine Squamous Epithelial Cell 0-2 0 - 2 /HPF [facility] Urine Bacteria None Seen None Seen [facility] Hyaline Casts, Urine 0-2 0 - 2 /LPF [facility] Urine 08/09/2025 2:28 PM EST 08/09/2025 4:23 PM EST Narrative [facility] - 08/09/2025 4:31 PM EST Urine, Clean Catch us Virgil Name LAB URINE ORDERABLES Final Resul t [facility] [address] [place] [phone] [phone] * BI US Breast Limited Left (01/03/2025 9:45 AM EDT) Anatomical Region Laterality Modality Breast Left Ultrasound 01/03/2025 9:45 AM EDT Narrative 01/03/2025 10:20 AM EDT [address] [place] [address] Ultrasound Report Signed Patient: Jesi Mena MR#: [id number] : 1970 Acct:[id number] Age/Sex: 54 / F ADM Date: 01/03/25 Loc: HO.MAMMO Attending Dr: Maddi Marina NP Ordering Physician: MADDI MARINA NP Date of Service: 01/03/25 Procedure(s): US breast LT limited mamm only Accession Number(s): [id number] cc: MADDI MARINA NP EXAMINATION: MM DIAGNOSTIC [...] 01/03/25 1018 DD/ 0945 TD/TT: 01/03/25 1000 Social Work Therapist: Procedure Note Donotuseinterpreter, Image - 01/03/[address] [place] [address] Ultrasound Report Signed Patient: Braeden Mena#: [id number] : 1970Acct:[id number] Age/Sex: 54 / FADM Date: 01/03/25 Loc: HO.MAMMO Attending Dr: Maddi Marina NP Ordering Physician: MADDI MARINA NP Date of Service: 01/03/25 Procedure(s): US breast LT limited mamm only Accession Number(s): [id number] cc: MADDI MARINA NP EXAMINATION: MM DIAGNOSTIC [...] 01/03/25 1018 DD/ 0945 TD/TT: 01/03/25 1000 Social Work Therapist: Maddi Marina ANP IMG US PROCEDURES Final Result * Hm Colonoscopy (01/31/2022) Colonoscopy Normal Normal Historical Provider HEALTH MAINTENANCE Final Result * HPV E6/E7 RFLX YAMEL 16 18/45 (10/30/2021 3:02 PM EST) HPV 16 RNA [facility] HPV 18/45 RNA [facility] HPV E6 E7 ADD [facility] HPV mRNA E6/E7 rflx Not Detected Not Detected [facility] Comment: Methodology: Medicare Nurse-Mediated Amplification This assay detects E6/E7 viral messenger RNA (mRNA) from 14 high-risk HPV types (16,18,31,33,35,39,45,51,52,56,58,59,66,68). The analytical performance characteristics of this assay have been determined by [employer]. The modifications have not been cleared or approved by the FDA. This assay has been validated pursuant to the CLIA regulations and is used for clinical purposes. For additional information, please refer to http://education.[employer]/faq/PYR623d7 (This link if provided for information/ educational purposes only.) THIS TEST WAS PERFORMED AT: [employer] [address] [place] [address],[place] [phone] MAHIN INMAN MD 10/30/2021 3:02 PM EST us Justine Moreno HISTORICAL/NON ORDERABLE LABS Fi nal Result [facility] [address] * Fecal immunochemical test x1 (FIT) (02/19/2021 12:00 AM EDT) FIT Date 1 02/18/21 [facility] FIT Date 2 02/19/21 [facility] FIT Lot [id number] [facility] FIT1 NEGATIVE NEGATIVE [facility] FIT2 NEGATIVE NEGATIVE [facility] 02/19/2021 us Historical Provider HISTORICAL/NON ORDERABLE LABS Final Result Performing Organization Address City/[facility] Co de Phone Number [facility] [address] from Last 3 Months or Most Recently Relevant to Health Maintenance Insurance [facility] [place] [address] [address] [place] [address] Care Teams Bilingual Executive Assistant Relationship Specialty Start Date End Date Maddi Marina ANP [address] [place] [phone] PCP - General Family Medicine 11/14/20
--- OUTSIDE RECORDS SUMMARY | 2025-08-09 19:02 | XMS_ITS | Encounter Summary ---
Author Organization [employer] Address [address] [facility] [address] [place] [address] Care Team Providers Care Wool Handler Name Role Phone Ronit Hernandez Primary Care Provider [phone] Reason for Visit * Reason Comments Med Refill Encounter Details Date Type Department Care Team (Late st Contact Info) Description 01/29/2023 Refill [facility] [address] [place] [address] Ronit Hernandez ANP [address] [place] [address] Social History Tobacco Use Types Packs/Day Years [...] as of this encounter Plan of Treatment Not on file documented as of this encounter Visit Diagnoses Not on filedocumented in this encounter Care Teams Wool Handler Relationship Specialty Start Date End Date Ronit Hernandez ANP [address] [place] [address] PCP - General Family Medicine 11/14/20 documented as of this encounter
--- OUTSIDE RECORDS SUMMARY | 2025-08-09 19:02 | XMS_ITS | Encounter Summary ---
Author Organization [employer] Address [address] [facility] [address]t [place] [address] Care Team Providers Care Blade Operator Name Role Phone David Ronit MÁRQUEZ Primary Care Provider [phone] Encounter Details Date Type Department Care Team (Latest Contact Info) Description 08/09/2025 Travel Social History Tobacco Use Types Packs/Day Years [...] Diagnoses Not on filedocumented in this encounter Additional Health Concerns Assessment Noted Time PHQ-9 Depression Total Score: 7 02/01/20 25 1:31 PM EDT documented as of this encounter Care Teams Blade Operator Relationship Specialty Start Date End Date Ronit Hernandez ANP [address] [place] [phone] PCP - General Family Medicine 11/14/20 documented as of this encounter
--- OUTSIDE RECORDS SUMMARY | 2025-08-09 19:02 | XMS_ITS | Encounter Summary ---
Author Organization [employer] Address 75 [facility] 7t [place] [address] Care Team Providers Care Pants Presser Name Role Phone Ronit Hernandez Primary Care Provider [phone] Encounter Details Date Type Department Care Team (Late st Contact Info) Description 12/05/2022 Abstract [facility] [address] [place] [address] Ronit Hernandez ANP [address] [place] [address] Social History Tobacco Use Types Packs/Day Years [...] on file documented as of this encounter Procedures Procedure Name Priority Date/Time Associated Diagnosis Comments MAMMOGRAPHY Routine 12/01/2022 4:22 PM EST documented in this encounter Results * Mammography (12/01/2022 4:22 PM EST) HM Mammogram Bi Rad1 Negative Anatomical Region Laterality Modality Other us Historical Provider HEALTH MAINTENANCE Final Result documented in this encounter Visit Diagnoses Not on filedocumented in this encounter Care Teams Pants Presser Relationship Specialty Start Date End Date Ronit Hernandez ANP [address] [place] [phone] PCP - General Family Medicine 11/14/20 documented as of this encounter
== END 2025-08-09 16:23 | disposition home or self-care (01) ==
LOC: HO.HHCLNP 16:22
PROVIDERS: Visit Provider Internal Medicine Geriatric Medicine
DX: R31.9 Hematuria, unspecified (principal)
CPT/HCPCS: 81001; 87086; 87088; 87186

== ENCOUNTER 2025-08-10 13:19 | Outpatient (REF) | payer MEDICAID, SELFPAY ==
--- OUTSIDE RECORDS SUMMARY | 2025-08-09 14:00 | XMS_ITS | Encounter Summary ---
Author Organization [employer] Address [address] [facility] 7t [place] [address] Care Team Providers Care Bit Sharpener Name Role Phone Ronit Hernandez Primary Care Provider [phone] Reason for Referral * Imaging (Routine) - Authorized Specialty Diagnoses / Procedures Referred By Contac t Referred To Contact Radiology Diagnoses Hematuria, unspecified type Suprapubic pressure Urination frequency Procedures US Pelvis Limited Bladder Name, MD Virgil [address] [place] [address] Phone: tel: fax: [address] Phone: tel: fax: Referral ID Status Reason Start Date Expiration Date V isits Requested Visits Authorized [id number] Authorized 08/09/2025 08/09/2026 1 1 * Imaging (Routine) - Authorized Specialty Diagnoses / Procedures Referred By Contac t Referred To Contact Radiology Diagnoses Hematuria, unspecified type Suprapubic pressure Urination frequency Procedures US Renal Complete NameVirgil MD [address] [place] [address] Phone: tel: fax: [address] Phone: tel: fax: Referral ID Status Reason Start Date Expiration Date V isits Requested Visits Authorized [id number] Authorized 08/09/2025 08/09/2026 1 1 Reason for Visit * Reason Comments Blood in Urine Encounter Details Date Type Department Care Team (Late st Contact Info) Description 08/09/2025 2:00 PM EST Office Visit [facility] [address] [place] [phone] Name, MD Virgil [address] [place] [address] Hematuria, unspecified type (Primary Dx); Suprapubic pressure; [...] Type Priority Associated Diagnoses Orde r Schedule US Renal Complete Imaging Routine Hematuria, unspecified type Suprapubic pressure Urination frequency Expected: 08/09/2025, Expires: 08/09/2026 US Pelvis Limited Bladder Imaging Routine Hematuria, unspecified type Suprapubic pressure Urination frequency Expected: 08/09/2025, Expires: 08/09/2026 documented as of this encounter Procedures Procedure Name Priority Date/Time Associated Diagnosis Comments CBC WITH AUTO DIFFERENTIAL Routine 08/10/2025 1:35 PM EST Suprapubic pressure Urination frequency History of kidney stones Chills BASIC METABOLIC PANEL Routine 08/10/2025 1:35 PM EST Hematuria, unspecified type Suprapubic pressure Urination frequency POCT URINALYSIS DIPSTICK Routine 08/09/2025 2:38 PM EST Hematuria, unspecified type URINALYSIS, COMPLETE, WITH REFLEX TO CULTURE Routine 08/09/2025 2:28 PM EST Hematuria, unspecified type documented in this encounter Results * (ABNORMAL) CBC auto differential (08/10/2025 1:35 PM EST) White Blood Count 4.3(L) 4.8 - 10.8 X10*3/uL [facility] Red Blood Count 4.22 4.20 - 5.50 X10*6/uL [facility] Hemoglobin 13.7 12.0 - 16.0 g/dl [facility] Hematocrit 39.1 37.0 - 47.0 % [facility] Mean Corpuscular Volume 92.7 80.0 - 98.0 fL [facility] Mean Corpuscular Hemoglobin 32.5 27.0 - 33.0 pg [facility] Mean Corpuscular HGB Conc 35.0 31.0 - 35.0 g/dl [facility] Red Cell Distribution Width 11.3 11.0 - 16.0 % [facility] Platelet Count 134(L) 160 - 400 X10*3/uL [facility] Mean Platelet Volume 12.4(H) 9.4 - 12.3 fL [facility] Neutrophils Percent Auto 52.5 45 - 73 % [facility] Imm Gran Pct Auto 0.2 0.0 - 0.4 % [facility] Lymphocytes Percent Auto 32.0 20 - 40 % [facility] Monocytes Percent Auto 13.2(H) 2 - 11 % [facility] Eosinophils Percent Auto 1.2 0 - 4 % [facility] Basophils Percent Auto 0.9 0 - 2 % [facility] NRBC Pct Auto 0.0 0.0 - 0.2 /100WBC [facility] Neutrophils Absolute Auto 2.2 2.0 - 8.3 x10*3/uL [facility] Imm Gran Abs Auto 0.01 0.00 - 0.03 X10*3/uL [facility] Lymphocytes Absolute Auto 1.4 1.2 - 4.9 X10*3/uL [facility] Monocytes Absolute Auto 0.6 0.1 - 1.2 X10*3/uL [facility] Eosinophils Absolute Auto 0.1 0.0 - 0.4 X10*3/uL [facility] Basophils Absolute Auto 0.0 0.0 - 0.2 X10*3/uL [facility] NRBC Abs Auto 0.000 0.0 - 0.012 X10*3/uL [facility] Blood Venous blood specimen / Unknown 08/10/2025 1:35 PM EST 08/10/2025 1:35 PM EST us Virgil Name LAB BLOOD ORDERABLES Final Resul t [facility] [address] [place] [phone] * (ABNORMAL) Basic Metabolic Panel (08/10/2025 1:35 PM EST) Sodium 142 135 - 145 mmol/L [facility] Potassium 3.5 3.3 - 5.1 mmol/L [facility] Chloride 109(H) 96 - 108 mmol/L [facility] Carbon Dioxide 26 22 - 29 mmol/L [facility] Anion Gap 11(L) 12 - 20 [facility] Urea Nitrogen (BUN) 7(L) 9 - 16 mg/dL [facility] Creatinine, Serum 0.68 0.5 - 1.4 mg/dL [facility] Estimated Glomerular Filt Rate >60 [facility] Comment:Chronic Kidney Disea se: Estimated GFR < 60 mL/min/[id number] Kidney Disease: Estimated GFR < 15 mL/min/1.73m2 Glucose 128(H) 60 - 115 mg/dL [facility] Calcium 9.2 8.4 - 10.2 mg/dL [facility] Blood Venous blood specimen / Unknown 08/10/2025 1:35 PM EST 08/10/2025 1:35 PM EST us Virgil Coffman MD LAB BLOOD ORDERABLES Final Resul t [facility] [address] [place] [phone] * (ABNORMAL) POCT Urinalysis (08/09/2025 2:38 PM [...] Media Lot # [id number] Lot# Expiration Date Urine (Urine, Random) 08/09/2025 2:38 PM EST us Virgil Coffman MD POINT OF CARE TEST ENTER/EDIT OR DERABLES Final Result * (ABNORMAL) Urinalysis, Complete, with Reflex to Culture (08/09/2025 2:28 PM EST) Color Urine Yellow [facility] Appearance Urine Turbid [facility] PH 5.5 5.0 - 9.0 [facility] Glucose Urine UA Negative Negative mg/dL [facility] Urine Blood Large (3+)(A) Negative [facility] Specific [place] - Urine <=1.005 1.005 - 1.025 [facility] Urine Protein 30 (1+)(A) Neg-Trace mg/dL [facility] Urine Ketones Negative Negative mg/dL [facility] Nitrite Urine Negative Negative [facility] Leukocyte Esterase Urine Large (3+)(A) Negative [facility] RBC Urine 11-20(A) 0 - 2 /HPF [facility] Urine WBC >50(A) 0 - 5 /HPF [facility] Urine Squamous Epithelial Cell 0-2 0 - 2 /HPF [facility] Urine Bacteria None Seen None Seen [facility] Hyaline Casts, Urine 0-2 0 - 2 /LPF [facility] Urine 08/09/2025 2:28 PM EST 08/09/2025 4:23 PM EST Narrative [facility] - 08/09/2025 4:31 PM EST Urine, Clean Catch us Virgil Name MD LAB URINE ORDERABLES Final Resul t Performing Organization Address City/State/[facility] Co de Phone Number [facility] [address] [place] [phone] documented in this encounter Visit Diagnoses Diagnosis Hematuria, unspecified type- Primary Suprapubic pressure Urination frequency Urinary frequency History of kidney stones Chills Chills (without fever) documented in this encounter Additional Health Concerns Assessment Noted Time PHQ-9 Depression Total Score: 7 02/01/20 25 1:31 PM EDT documented as of this encounter Care Teams Bit Sharpener Relationship Specialty Start Date End Date Ronit Hernandez ANP [address] [place] [address] PCP - General Family Medicine 11/14/20 documented as of this encounter
[2025-08-10 13:37] LABS: MANUAL DIFF FLAG NO
[2025-08-10 13:45] LABS: Hematocrit 39.1 % (37.0-47.0); Hemoglobin 13.7 g/dl (12.0-16.0); Imm Gran Abs Auto 0.01 X10*3/uL (0.00-0.03); Imm Gran Pct Auto 0.2 % (0.0-0.4); Lymphocytes Absolute Auto 1.4 X10*3/uL (1.2-4.9); Mean Corpuscular HGB Conc 35.0 g/dl (31.0-35.0); Mean Corpuscular Hemoglobin 32.5 pg (27.0-33.0); Mean Corpuscular Volume 92.7 fL (80.0-98.0); NRBC Abs Auto 0.000 X10*3/uL (0.0-0.012); NRBC Pct Auto 0.0 /100WBC (0.0-0.2); Platelet Count 134 X10*3/uL (160-400); Red Blood Count 4.22 X10*6/uL (4.20-5.50); White Blood Count 4.3 X10*3/uL (4.8-10.8)
[2025-08-10 15:35] LABS: Anion Gap 11 (12-20); Blood Urea Nitrogen 7 mg/dL (9-16); Calcium 9.2 mg/dL (8.4-10.2); Carbon Dioxide 26 mmol/L (22-29); Chloride 109 mmol/L (96-108); Estimated Glomerular Filt Rate > 60; Potassium 3.5 mmol/L (3.3-5.1); Sodium 142 mmol/L (135-145)
--- OUTSIDE RECORDS SUMMARY | 2025-08-10 16:38 | XMS_ITS | Encounter Summary ---
Author Organization [employer] Address 75 [facility] 7t [place] [address] Care Team Providers Care Vice President Of Human Resources Name Role Phone David Ronit MÁRQUEZ Primary Care Provider [phone] Encounter Details Date Type Department Care Team [...] documented as of this encounter Care Teams Vice President Of Human Resources Relationship Specialty Start Date End Date Ronit Hernandez ANP [address] [place] [phone] PCP - General Family Medicine 11/14/20 documented as of this encounter
--- OUTSIDE RECORDS SUMMARY | 2025-08-10 16:38 | XMS_ITS | Encounter Summary ---
Author Organization [employer] Address 75 [facility] 7t [place] [address] Care Team Providers Care Data Processing Systems Project Planner Name Role Phone Ronit Hernandez Primary Care Provider [phone] Encounter Details Date Type Department Care Team (Late st Contact Info) Description 12/05/2022 Abstract [facility] [address] [place] [address] Ronit Hernandez ANP [address] [place] [address] Social History Tobacco Use Types Packs/Day Years [...] on filedocumented in this encounter Care Teams Data Processing Systems Project Planner Relationship Specialty Start Date End Date Ronit Hernandez ANP [address] [place] [phone] PCP - General Family Medicine 11/14/20 documented as of this encounter
--- OUTSIDE RECORDS SUMMARY | 2025-08-10 16:38 | XMS_ITS | Encounter Summary ---
Author Organization [employer] Address [address] [facility] [address] [place] [address] Care Team Providers Care Electroplater Automatic Name Role Phone Ronit Hernandez Primary Care Provider [phone] Reason for Visit * Reason Comments Med Refill Encounter Details Date Type Department Care Team (Late st Contact Info) Description 01/29/2023 Refill [facility] [address] [place] [address] Ronit Hernandez ANP [address] [place] [address] Social History Tobacco Use Types Packs/Day Years [...] on filedocumented in this encounter Care Teams Electroplater Automatic Relationship Specialty Start Date End Date Ronit Hernandez ANP [address] [place] [address] PCP - General Family Medicine 11/14/20 documented as of this encounter
--- OUTSIDE RECORDS SUMMARY | 2025-08-10 16:38 | XMS_ITS | Clinical Summary ---
Author Organization [employer] Address [address] [facility] [address] [place] [address] Care Team Providers Care Linderman Machine Operator Name Role Phone Maddi Marina YULISA Primary Care Provider [phone] Allergies Active Allergy Reactions Criticality Noted Date [...] at bedtime. 07/24/20 22 Active sodium chloride ([place]) 0.65 % nasal sprayIndications :Acute non-recurrent frontal [...] Description 08/09/2025 2:00 PM EST Office Visit [facility] [address] [place] [phone] Virgil Coffman MD Hematuria, unspecified type (Primary Dx); Suprapubic pressure; Urination frequency; History of kidney stones; Chills 08/09/2025 Travel 08/03/2025 1:00 PM EST Office Visit [facility] [address] [place] [phone] Maddi Marina ANP Impaired glucose tolerance (Primary Dx); Mild persistent asthma without complication; Aortic stenosis with bicuspid valve; Adenomatous polyp of colon, unspecified part of colon; Encounter for immunization; Acute otitis externa of right ear, unspecified type; Pilonidal cyst; Dietary counseling; Exercise counseling 08/03/2025 Travel 07/31/2025 Telephone [facility] [address] [place] [phone] Maddi Marina ANP chart prep 07/27/2025 Patient Outreach [facility] [address], [place] [phone] Maddi Marina ANP Pre-visit Planning (SDOH was already completed ) 07/24/2025 Refill [facility] [address] [place] [address] [phone] Maddi Marina ANP Acute laryngitis 05/30/[address] [address] Maddi Marina ANP July recall from Last [...] 08/09/2025 2:28 PM EST Hematuria, unspecified type CULTURE, URINE, ROUTINE Routine 08/09/2025 12:00 AM EST BI US BREAST LIMITED LEFT Routine 01/03/2025 9:45 AM EDT HM COLONOSCOPY Routine 01/31/2022 ZZZ HISTORICAL HPV E6/E7 RFLX YAMEL 16 18/45 Routine 10/30/2021 3:02 PM EST ZZZ HISTORICAL FECAL IMMUNOCHEMICAL TEST X1 (FIT) Routine 02/19/2021 12:00 AM EDT from Last 3 Months or Most Recently Relevant to Health Maintenance Results * (ABNORMAL) CBC auto differential (08/10/2025 1:35 PM EST) White Blood Count 4.3(L) 4.8 - 10.8 X10*3/uL [facility] Red Blood Count 4.22 4.20 - 5.50 X10*6/uL [facility] Hemoglobin 13.7 12.0 - 16.0 g/dl [facility] Hematocrit 39.1 37.0 - 47.0 % [facility] Mean Corpuscular Volume 92.7 80.0 - 98.0 fL [facility] Mean Corpuscular Hemoglobin 32.5 27.0 - 33.0 pg [facility] Mean Corpuscular HGB Conc 35.0 31.0 - 35.0 g/dl [facility] Red Cell Distribution Width 11.3 11.0 - 16.0 % [facility] Platelet Count 134(L) 160 - 400 X10*3/uL [facility] Mean Platelet Volume 12.4(H) 9.4 - 12.3 fL [facility] Neutrophils Percent Auto 52.5 45 - 73 % [facility] Imm Gran Pct Auto 0.2 0.0 - 0.4 % [facility] Lymphocytes Percent Auto 32.0 20 - 40 % [facility] Monocytes Percent Auto 13.2(H) 2 - 11 % [facility] Eosinophils Percent Auto 1.2 0 - 4 % [facility] Basophils Percent Auto 0.9 0 - 2 % [facility] NRBC Pct Auto 0.0 0.0 - 0.2 /100WBC [facility] Neutrophils Absolute Auto 2.2 2.0 - 8.3 x10*3/uL [facility] Imm Gran Abs Auto 0.01 0.00 - 0.03 X10*3/uL [facility] Lymphocytes Absolute Auto 1.4 1.2 - 4.9 X10*3/uL [facility] Monocytes Absolute Auto 0.6 0.1 - 1.2 X10*3/uL [facility] Eosinophils Absolute Auto 0.1 0.0 - 0.4 X10*3/uL [facility] Basophils Absolute Auto 0.0 0.0 - 0.2 X10*3/uL [facility] NRBC Abs Auto 0.000 0.0 - 0.012 X10*3/uL [facility] Blood Venous blood specimen / Unknown 08/10/2025 1:35 PM EST 08/10/2025 1:35 PM EST us Virgil Name MD LAB BLOOD ORDERABLES Final Resul t [facility] [address] [place] [phone] * (ABNORMAL) Basic Metabolic Panel (08/10/2025 1:35 PM EST) Sodium 142 135 - 145 mmol/L [facility] Potassium 3.5 3.3 - 5.1 mmol/L [facility] Chloride 109(H) 96 - 108 mmol/L [facility] Carbon Dioxide 26 22 - 29 mmol/L [facility] Anion Gap 11(L) 12 - 20 [facility] Urea Nitrogen (BUN) 7(L) 9 - 16 mg/dL [facility] Creatinine, Serum 0.68 0.5 - 1.4 mg/dL [facility] Estimated Glomerular Filt Rate >60 [facility] Comment:Chronic Kidney Disea se: Estimated GFR < 60 mL/min/[id number] Kidney Disease: Estimated GFR < 15 mL/min/1.73m2 Glucose 128(H) 60 - 115 mg/dL [facility] Calcium 9.2 8.4 - 10.2 mg/dL [facility] Blood Venous blood specimen / Unknown 08/10/2025 1:35 PM EST 08/10/2025 1:35 PM EST us Virgil Coffman MD LAB BLOOD ORDERABLES Final Resul t [facility] [address] [place] [phone] * (ABNORMAL) POCT Urinalysis (08/09/2025 2:38 [...] (08/09/2025 2:28 PM EST) Color Urine Yellow [facility] Appearance Urine Turbid [facility] PH 5.5 5.0 - 9.0 [facility] Glucose Urine UA Negative Negative mg/dL [facility] Urine Blood Large (3+)(A) Negative [facility] Specific [place] - Urine <=1.005 1.005 - 1.025 [facility] Urine Protein 30 (1+)(A) Neg-Trace mg/dL [facility] Urine Ketones Negative Negative mg/dL [facility] Nitrite Urine Negative Negative [facility] Leukocyte Esterase Urine Large (3+)(A) Negative [facility] RBC Urine 11-20(A) 0 - 2 /HPF [facility] Urine WBC >50(A) 0 - 5 /HPF [facility] Urine Squamous Epithelial Cell 0-2 0 - 2 /HPF [facility] Urine Bacteria None Seen None Seen [facility] Hyaline Casts, Urine 0-2 0 - 2 /LPF [facility] Urine 08/09/2025 2:28 PM EST 08/09/2025 4:23 PM EST Narrative [facility] - 08/09/2025 4:31 PM EST Urine, Clean Catch us Virgil Name LAB URINE ORDERABLES Final Resul t Performing Organization Address City/State/[facility] Co de Phone Number [facility] [address] [place] [phone] * BI US Breast Limited Left (01/03/2025 9:45 AM EDT) Anatomical Region Laterality Modality Breast Left Ultrasound 01/03/2025 9:45 AM EDT Narrative 01/03/2025 10:20 AM EDT [address] [place] [address] Ultrasound Report Signed Patient: Jesi Mena MR#: [id number] : 1970 Acct:[id number] Age/Sex: 54 / F ADM Date: 01/03/25 Loc: HO.MAMMO Attending Dr: Maddi Marina NP Ordering Physician: MADDI MARINA NP Date of Service: 01/03/25 Procedure(s): US breast LT limited mamm only Accession Number(s): [id number] cc: MADDI MARINA NP EXAMINATION: MM DIAGNOSTIC [...] 01/03/25 1018 DD/ 0945 TD/TT: 01/03/25 1000 Mandarin Chinese Teacher: Procedure Note Donotuseinterpreter, Image - 01/03/2025 [facility] [address] [place] [address] Ultrasound Report Signed Patient: Braeden Mena#: [id number] : 1970Acct:[id number] Age/Sex: 54 / FADM Date: 01/03/25 Loc: ELPIDIO.MAMMO Attending Dr: Maddi Marina NP Ordering Physician: MADDI MARINA NP Date of Service: 01/03/25 Procedure(s): US breast LT limited mamm only Accession Number(s): [id number] cc: MADDI MARINA NP EXAMINATION: MM DIAGNOSTIC [...] 01/03/25 1018 DD/ 0945 TD/TT: 01/03/25 1000 Mandarin Chinese Teacher: Maddi VOGT US PROCEDURES Final Result * Hm Colonoscopy (01/31/2022) Pathologist [facility] Colonoscopy Normal Normal Historical Provider HEALTH MAINTENANCE Final Result * HPV E6/E7 RFLX YAMEL 16 18/45 (10/30/2021 3:02 PM EST) Pathologist [facility] HPV 16 RNA [facility] HPV 18/45 RNA [facility] HPV E6 E7 ADD [facility]NP [facility] HPV mRNA E6/E7 rflx Not Detected Not Detected [facility] Comment: Methodology: Actuarial Technician-Mediated Amplification This assay detects E6/E7 viral messenger RNA (mRNA) from 14 high-risk HPV types (16,18,31,33,35,39,45,51,52,56,58,59,66,68). The analytical performance characteristics of this assay have been determined by [employer]. The modifications have not been cleared or approved by the FDA. This assay has been validated pursuant to the CLIA regulations and is used for clinical purposes. For additional information, please refer to http://education.WeLab/faq/VSY834a9 (This link if provided for information/ educational purposes only.) THIS TEST WAS PERFORMED AT: [facility] [address] [place] [address],[place] [phone] MAHIN INMAN MD 10/30/2021 3:02 PM EST us Justine Moreno HISTORICAL/NON ORDERABLE LABS Fi nal Result Performing Organization Address [facility] Co de Phone Number [facility] [address] * Fecal immunochemical test x1 (FIT) (02/19/2021 12:00 AM EDT) FIT Date 1 02/18/21 [facility] FIT Date 2 02/19/21 [facility] FIT Lot [id number] [facility] FIT1 NEGATIVE NEGATIVE [facility] FIT2 NEGATIVE NEGATIVE [facility] 02/19/2021 us Historical Provider HISTORICAL/NON ORDERABLE LABS Final Result Performing Organization Address [facility] Co de Phone Number [facility] [address] from Last 3 Months or Most Recently Relevant to Health Maintenance Insurance [facility] C3 Care Teams Linderman Machine Operator Relationship Specialty Start Date End Date Maddi Marina ANP [address] [place] [phone] PCP - General Family Medicine 11/14/20
== END 2025-08-10 13:20 | disposition home or self-care (01) ==
LOC: HO.LAB 13:19
PROVIDERS: Absent Provider Nurse Practitioner Primary Care; PCP Nurse Practitioner Primary Care; Visit Provider Internal Medicine Geriatric Medicine
DX: R10.24 Suprapubic pain (principal); R35.0 Frequency of micturition; R68.83 Chills (without fever); R31.9 Hematuria, unspecified; Z87.442 Personal history of urinary calculi
CPT/HCPCS: 36415; 80048; 85025

== ENCOUNTER → 2025-08-15 13:23 | Outpatient (REF) | payer MEDICAID, SELFPAY ==
--- NOTE | 2025-08-15 13:26 | CA_ITS ---
Transthoracic Echocardiogram Patient (Last, First, Middle): Jesi Mena, Gender: F Date of : 1970 Age: 55 Procedure Date: 08/15/2025 Procedure Type: Transthoracic Echocardiogram Location: OP Height: 154. cm Weight: 65.77 kg BSA: 1.64 m2 Heart Rate: 85 bpm BP: 95 / 20 mmHg Cell Biologist: KELI Referring MD: Timoteo Blanton MD Symptoms: R93.1 - Abnormal findings on diagnostic imaging of heart and coronary ci... Study Quality: Adequate ECG Rhythm: Sinus Conclusions: - The left ventricular systolic function is normal. The calculated ejection fraction is 58% by biplane method. - The basal inferior and mid anterolateral segments are hypokinetic. - The inferolateral wall is dyskinetic (vs pseudo-dyskinesis). - There is mild aortic valve stenosis. Findings Left Ventricle Normal left ventricular cavity size. There is normal left ventricular wall thickness. The left ventricular systolic function is normal. The calculated ejection fraction is 58% by biplane method. There is no evidence of regional wall motion abnormalities. Diastolic function is normal for age. Wall Motion Rest Echo Findings The basal inferior and mid anterolateral segments are hypokinetic. The inferolateral wall is dyskinetic. Right Ventricle Normal right ventricular cavity size and systolic function. Atria Both atria are normal in size. Aortic Valve There is mild calcification of the aortic valve. There is mild aortic valve stenosis. There is no aortic valve regurgitation. History of bicuspid aortic valve, but not clearly identified in this study. Mitral Valve The mitral valve appears normal. There is trace mitral valve regurgitation. There is no mitral valve stenosis. Pulmonic Valve The pulmonic valve is likely normal. Tricuspid Valve There is mild tricuspid valve regurgitation. There is no evidence of pulmonary hypertension. Great Vessels The asc aorta and aortic arch are normal in size. Venous The inferior vena cava is normal in size and collapses greater than 50% with inspiration. Pericardium/Pleural There is no evidence of pericardial effusion. Prior Study Comparison Changes noted compared to prior study dated: 06/20/2024. see comment on wall motion. Recommendations, Care & Conclusions No obvious valvular pathology seen on this study. Measurements 2D Linear Measurements IVSd: 0.67 0.6-0.9/0.6-1.0 cm LVIDd: 3.42 3.9-5.3/4.2-5.9 cm LVIDd Index: 2.09 2.4-3.2/2.2-3.1 cm/m2 LVIDs: 1.93 2.0-3.6 cm LVPWd: 0.75 0.7-1.1 cm LA Diam: 1.60 2.7-3.8/3.0-4.0 cm LAIDs Index: 0.98 1.5-2.3 cm/m2 LV Mass: 76.90 67-162/88-224 g LV Mass Index: 46.89 43-95/49-115 g/m2 LVOT Diam: 1.90 3.0+(-)1.3 cm 2D Systolic Function EF 4C: 62.30 >55% EF 2C: 55.90 >55% EF BiP: 58.00 >55% Mitral Valve MV Pk E: 0.55 MV PK A: 0.69 MV Decel Time: 270.00 E/A: 0.80 E'Lateral: 6.96 E'Medial: 5.66 E/E' Med: 9.80 E/E' Lat: 7.90 PHT: 79.00 MVA PHT: 2.78 Decel Gray: 2.05 Aortic Valve AoV Pk Rene: 2.03 AoV Mn Rene: 1.46 AoV VTI: 0.36 AoV Pk Grad: 16.00 Aov Mn Grad: 9.00 ANISA Cont.VTI: 1.22 LVOT LVOT Pk Rene: 0.84 LVOT Mn Rene: 0.63 LVOT VTI: 0.16 LVOT Pk Grad: 3.00 LVOT Mn Grad: 2.00 LVOT Diam: 1.90 LVOT Area: 2.84 Diastolic Function MV Pk E: 0.55 MV Pk A: 0.69 E/A: 0.80 E'Medial: 5.66 E/E' Med: 9.80 E' Laterial: 6.96 E/E' Lat: 7.90 Right Ventricle TAPSE (mm): 18.40 TVS' Rene: 8.59 Tricuspid Valve TR Pk Rene: 1.92 TR Pk Grad: 15.00 RA Press: 3.00 RVSP: 18.00 Great Vessels Aorta Sinus of Valsalva: 3.20 2.0-3.5 cm Ao Asc: 3.00 2.1-3.4 cm Ao Arch: 2.50 Pulmonary Valve PV Pk Rene: 0.67 Peak PV Grad: 2.00 Updated in Other Vendor System with Status of Final Fran Merritt MD electronically signed on 08/16/2025 3:53:52 PM with status of Final
== END ==
LOC: HO.CARD 13:23
PROVIDERS: PCP Nurse Practitioner Primary Care; Visit Provider Internal Medicine Cardiovascular Disease
DX: R93.1 Abnormal findings on diagnostic imaging of heart and coronary circulation (principal)
CPT/HCPCS: 93306

== ENCOUNTER → 2025-08-15 13:26 | Outpatient (BNV) | payer MEDICAID, SELFPAY | PROVIDERS: PCP Nurse Practitioner Primary Care; Visit Provider Internal Medicine | DX: I35.0 Nonrheumatic aortic (valve) stenosis (principal); I36.1 Nonrheumatic tricuspid (valve) insufficiency; I51.89 Other ill-defined heart diseases | CPT/HCPCS: 93306 ==